=== PATIENT | male | born 1965 | race Two or more races ===

== ENCOUNTER 2019-05-01 21:45 | Inpatient (IN) | payer MEDICAID ==
--- NOTE | 2019-05-01 22:45 | ED Physician Chart ---
ED Chief Complaint/HPI - Patient Information Date Seen:: 05/01/19 Time Seen:: 22:10 Chief Complaint:: swollen feet History of Present Illness:: this is a chronically ill 53 yo male who is concerned about his swollen feet and legs with fever. he has a history of diabetes, heart disease, hypertension and obesity. he has had difficulty walking lately. Allergies:: Allergies Allergy/AdvReac Type Severity Reaction Status Date / Time No Known Allergies Allergy Verified 05/01/19 22:01 Vitals:: Vital Signs - 8 hr 05/01/19 22:00 Temp 99.8 F HR 116 RR 18 BP 139/88 O2 Sat % 97 Historian:: Patient, Medical Records Review:: Nurse's Note Reviewed, Old Chart Reviewed ED Review of Systems - Review of Systems General/Constitutional: Fever, Chills, No chills, Weight loss, No weight loss, No weakness, No diaphoresis, Edema, No loss of appetite Skin: Skin lesions (on both lower extremities there are scabs and scaring noted) , No rash, No bruising Head: No headache, No light-headedness Eyes: No loss of vision, No pain, No diplopia ENT: No earache, No nasal drainage, No sore throat, No tinnitus Neck: No neck pain, No swelling, No thyromegaly, No stiffness, No mass noted Cardio Vascular: No chest pain, No palpitations, No PND, No orthopnea, No edema Pulmonary: No SOB, No cough, No sputum, No wheezing GI: No nausea, No vomiting, No diarrhea, No pain, No melena, No hematochezia, No constipation, No hematemesis G/U: No dysuria, No frequency, No hematuria Musculoskeletal: No bone or joint pain, No back pain, No muscle pain, Other ( bilaterarl leg pain and swelling with redness.) Endocrine: No polyuria, No polydipsia Psychiatric: No prior psych history, No depression, No anxiety, No suicidal ideation Hematopoietic: No bruising, No lymphadenopathy Allergic/Immuno: No urticaria, No angioedema Neurological: No syncope, No focal symptoms, No weakness, No paresthesia, No headache, No seizure, No dizziness, No confusion, No vertigo ED Past Medical History - Past Medical History Obtainable: Yes Past Medical History: HTN, DM, CAD, CHF, Asthma/COPD, Dyslipidemia Family History: None Social History: Non Smoker, No Alcohol, No Drug Use, Surgical History: other (heart valve replacement, bilateral knee surgery.) Psychiatricy History: None Medication: Reviewed Family Medical History - Family Member Mother History Unknown: Yes Hx Family Diabetes: Yes ED Physical Exam - Physical Examination General/Constitutional: Awake, Well-developed, well-nourished, Alert, No distress, GCS 15, Non-toxic appearing, Ambulatory Other Gen/Cons comments:: obese Head: Atraumatic Eyes: Lids, conjuctiva normal, PERRL, EOMI Skin: Nl inspection, No rash, No skin lesions, No ecchymosis, Well hydrated, No lymphadenopathy ENMT: External ears, nose nl, Nasal exam nl, Lips, teeth, gums nl Neck: Nontender, Full ROM w/o pain, No JVD, No nuchal rigidity, No bruit, No mass, No stridor Respiratory: Nl effort/Exclusion, Clear to Auscultation, No Wheeze/Rhonchi/Rales Cardio Vascular: RRR (tachycardia), No murmur, gallop, rubs, NL S1 S2 GI: No tenderness/rebounding/guarding, No organomegaly, No hernia, Normal BS's, Nondistended, No mass/bruits, No McBurney tenderness : No CVA tenderness Extremities: No tenderness or effusion (there is biateral tenderness, sweling and redness to both lower extremities.), Full ROM, normal strength in all extremities, Normal digits & nails Neuro/Psych: Alert/oriented, DTR's symmetric, Normal sensory exam, Normal motor strength, Judgement/insight normal, Mood normal, Normal gait, No focal deficits Misc: Normal back, No paraspinal tenderness ED Labs/Radiology/EKG Results - Lab Results Results: Laboratory Results - last 24 hr 05/01/19 05/01/19 05/01/19 20:56 22:50 22:50 WBC 20.1 H* RBC 5.24 Hgb 16.6 Hct 48.1 MCV 91.7 MCH 31.7 H MCHC Differential 34.5 RDW 12.8 Plt Count 266 MPV 8.4 Add Manual Diff YES PT 10.8 INR 1.04 PTT (Actin FS) 25.1 L D-Dimer Sodium Potassium Chloride Carbon Dioxide Anion Gap BUN Creatinine Est GFR ( Amer) Est GFR (Non-Af Amer) BUN/Creatinine Ratio Glucose POC Glucose Whole Bld Lactic Acid Calcium Total Bilirubin AST ALT Alkaline Phosphatase Troponin I B-Natriuretic Peptide Total Protein Albumin Globulin Albumin/Globulin Ratio Triglycerides Cholesterol LDL Cholesterol Direct HDL Cholesterol Urine Source CLEAN C Urine Color YELLOW Urine Clarity CLEAR Urine pH 6.5 Ur Specific [place] 1.010 Urine Protein NEGATIVE Urine Glucose (UA) >=1000 H Urine Ketones NEGATIVE Urine Blood NEGATIVE Urine Nitrate NEGATIVE Urine Bilirubin NEGATIVE Urine Urobilinogen 1.0 Ur Leukocyte Esterase NEGATIVE Urine RBC NONE SEEN Urine WBC 0-2 Ur Epithelial Cells RARE Urine Bacteria OCCASIONAL 05/01/19 05/01/19 05/01/19 22:50 22:50 22:50 WBC RBC Hgb Hct MCV MCH MCHC Differential RDW Plt Count MPV Add Manual Diff PT INR PTT (Actin FS) D-Dimer Sodium 129 L Potassium 4.1 Chloride 92 L Carbon Dioxide 26.5 Anion Gap 14.6 BUN 8 Creatinine 0.8 Est GFR ( Amer) > 60.0 Est GFR (Non-Af Amer) > 60.0 BUN/Creatinine Ratio 10.0 Glucose 320 H POC Glucose Whole Bld Lactic Acid 1.76 Calcium 10.2 Total Bilirubin 0.6 AST 37 ALT 51 Alkaline Phosphatase 94 Troponin I 0.02 B-Natriuretic Peptide Total Protein 9.8 H Albumin 4.4 Globulin 5.4 Albumin/Globulin Ratio 0.8 L Triglycerides 97 Cholesterol 125 LDL Cholesterol Direct 69 L HDL Cholesterol 46 Urine Source Urine Color Urine Clarity Urine pH Ur Specific [place] Urine Protein Urine Glucose (UA) Urine Ketones Urine Blood Urine Nitrate Urine Bilirubin Urine Urobilinogen Ur Leukocyte Esterase Urine RBC Urine WBC Ur Epithelial Cells Urine Bacteria 05/01/19 05/01/19 05/01/19 22:50 22:50 23:04 WBC RBC Hgb Hct MCV MCH MCHC Differential RDW Plt Count MPV Add Manual Diff PT INR PTT (Actin FS) D-Dimer 781 H Sodium Potassium Chloride Carbon Dioxide Anion Gap BUN Creatinine Est GFR ( Amer) Est GFR (Non-Af Amer) BUN/Creatinine Ratio Glucose POC Glucose 262 H Whole Bld Lactic Acid Calcium Total Bilirubin AST ALT Alkaline Phosphatase Troponin I B-Natriuretic Peptide 100.0 Total Protein Albumin Globulin Albumin/Globulin Ratio Triglycerides Cholesterol LDL Cholesterol Direct HDL Cholesterol Urine Source Urine Color Urine Clarity Urine pH Ur Specific [place] Urine Protein Urine Glucose (UA) Urine Ketones Urine Blood Urine Nitrate Urine Bilirubin Urine Urobilinogen Ur Leukocyte Esterase Urine RBC Urine WBC Ur Epithelial Cells Urine Bacteria - Radiology Results Results: chest x-ray = nad - EKG Interpretations EKG Time:: 21:30 Rate & Rhythm: rate= 100, sinus [place]: right ED Assessment - Assessment General Assessment: cellulitis of both lower extremities diabetes mellitus uncontrolled electrolyte imbalance fever hypertension controlled. ED Septic Shock - . Is Septic Shock (SBP<90, OR Lactate>4 mmol\L) present?: No - <6hrs of presentation: Vital Signs: Vital Signs - 8 hr 05/01/19 22:00 Temp 99.8 F HR 116 RR 18 BP 139/88 O2 Sat % 97 ED Reassessment (Disposition) - Reassessment Reassessment Condition:: Improved - Diagnosis Diagnosis:: cellulitis of both lower extremities diabetes mellitus uncontrolled chronic congestive heart failure hypertension, controlled fever leukocyctosis. - Patient Disposition Discharge/Transfer:: Acute Care w/in this hosp Admitted to:: Telemetry Admitting Medical Physician:: Selvin Dubon Condition at Disposition:: Improved
[2019-05-01 23:07] LABS: HEMATOCRIT 48.1 % (41.0-60); HEMOGLOBIN 16.6 gm/dL (12-16); MEAN CELL VOLUME 91.7 fl (80-99); MEAN CORPUSCULAR HEMOGLOBIN 31.7 pg (26.0-30.0); MEAN CORPUSCULAR HGB CONC 34.5 pg (28.0-36.0); PLATELET COUNT 266 Th/cmm (150-400); RED BLOOD COUNT 5.24 Mil/cmm (4.30-5.70); RED CELL DISTRIBUTION WIDTH 12.8 % (11.5-20.0)
[2019-05-01 23:10] LABS: URINE SOURCE CLEAN C
[2019-05-01 23:13] LABS: WHITE BLOOD COUNT 20.1 Th/cmm (4.8-10.8)
[2019-05-01 23:15] LABS: URINE BILIRUBIN NEGATIVE (NEGATIVE); URINE BLOOD NEGATIVE (NEGATIVE); URINE GLUCOSE (UA) >=1000 mg/dL (NEGATIVE); URINE KETONE NEGATIVE (NEGATIVE); URINE LEUKOCYTE ESTERASE NEGATIVE (NEGATIVE); URINE MICROSCOPIC INDICATED? YES; URINE NITRATE NEGATIVE (NEGATIVE); URINE PH 6.5 (4.6 - 8.0); URINE PROTEIN NEGATIVE (NEGATIVE)
[2019-05-01 23:18] LABS: URINE CLARITY CLEAR (CLEAR); URINE COLOR YELLOW
[2019-05-01 23:19] LABS: URINE BACTERIA OCCASIONAL /hpf (NONE SEEN); URINE EPITHELIAL CELLS RARE /lpf (FEW); URINE RBC NONE SEEN /hpf (0-5); URINE WBC 0-2 /hpf (0-5)
[2019-05-01 23:26] LABS: ALB/GLOB RATIO 0.8 (1.0-1.8); ALBUMIN 4.4 gm/dL (4.2-5.5); ALKALINE PHOSPHATASE 94 U/L (34-104); ANION GAP 14.6 (7.0-16.0); BILIRUBIN,TOTAL 0.6 mg/dL (0.3-1.0); BUN - UREA NITROGEN 8 mg/dL (7-25); CALCIUM SERUM 10.2 mg/dL (8.6-10.3); CARBON DIOXIDE 26.5 mEq/L (21.0-31.0); CHLORIDE 92 mEq/L (98-107); CHOLESTEROL 125 mg/dL (<200); CREATININE - SERUM 0.8 mg/dL (0.7-1.3); GFR AFRICAN-AMERICAN > 60.0 ml/min (>90); GFR NON AFRICAN-AMERICAN > 60.0 ml/min; GLUCOSE 320 mg/dL (70-105); HDL -HIGH DENSITY LIPOPROTEIN 46 mg/dL (23-92); POTASSIUM SERUM 4.1 mEq/L (3.5-5.1); SGOT 37 U/L (13-39); SGPT/ALT 51 U/L (7-52); SODIUM SERUM 129 mEq/L (136-145); TOTAL PROTEIN,SERUM 9.8 gm/dL (6.0-8.3); TRIGLYCERIDES 97 mg/dL (<150)
[2019-05-01] MEDS ORDERED: INSULIN HUMAN REGULAR 100 UNITS/ML UNIT SUBQ ONE (23:33)
[2019-05-01 23:43] LABS: INR 1.04 (0.5-1.4)
[2019-05-02 04:28] LABS: BAND NEUTROPHILE 2 % (0-10); EOSINOPHIL 1 % (0-5); LYMPHOCYTE 14 % (20-50); MONOCYTE 3 % (2-10); NEUTROPHILS 80 % (40-80); PLATELET ESTIMATE ADEQUATE (NORMAL)
[2019-05-02] MEDS: Ampicillin Sodium/Sulbactam 3 GM in Sodium Chloride 0.9% 100 ML IV SCH ×3 (05:34→21:18)
[2019-05-02 07:53] LABS: MEAN CORPUSCULAR HEMOGLOBIN 31.3 pg (26.0-30.0); MEAN CORPUSCULAR HGB CONC 33.6 pg (28.0-36.0); PLATELET COUNT 257 Th/cmm (150-400); RED BLOOD COUNT 4.48 Mil/cmm (4.30-5.70); RED CELL DISTRIBUTION WIDTH 12.8 % (11.5-20.0)
[2019-05-02 07:58] LABS: HEMATOCRIT 41.7 % (41.0-60)
[2019-05-02] MEDS: Enoxaparin 40 mg/0.4 mL 0.4mL Syr SUBQ SCH (08:04)
[2019-05-02] MEDS: INSULIN LISPRO SLIDING SCALE 100 UNITS/ML UNIT SUBQ SCH ×4 (08:05→21:24)
[2019-05-02 08:16] LABS: ALB/GLOB RATIO 0.8 (1.0-1.8); ALBUMIN 3.2 gm/dL (4.2-5.5); ALKALINE PHOSPHATASE 65 U/L (34-104); BILIRUBIN,TOTAL 0.5 mg/dL (0.3-1.0); BUN - UREA NITROGEN 7 mg/dL (7-25); CALCIUM SERUM 9.2 mg/dL (8.6-10.3); CARBON DIOXIDE 28.1 mEq/L (21.0-31.0); CHLORIDE 99 mEq/L (98-107); CREATININE - SERUM 0.8 mg/dL (0.7-1.3); GFR AFRICAN-AMERICAN > 60.0 ml/min (>90); GFR NON AFRICAN-AMERICAN > 60.0 ml/min; GLUCOSE 229 mg/dL (70-105); POTASSIUM SERUM 4.1 mEq/L (3.5-5.1); SGOT 23 U/L (13-39); SGPT/ALT 33 U/L (7-52); SODIUM SERUM 134 mEq/L (136-145); TOTAL PROTEIN,SERUM 7.3 gm/dL (6.0-8.3)
[2019-05-02 08:18] LABS: BAND NEUTROPHILE 0 % (0-10); BASOPHIL 0 % (0-3); EOSINOPHIL 2 % (0-5); LYMPHOCYTE 20 % (20-50); MONOCYTE 6 % (2-10); NEUTROPHILS 72 % (40-80)
--- NOTE | 2019-05-02 09:04 | Diagnostic Imaging Report ---
CHEST X-RAY: AP view INDICATION: Congestion COMPARISON: None FINDINGS: There is evidence of prior median sternotomy. There is accentuation of the interstitial lung markings. There is no focal consolidation or pleural effusions The heart is normal in size. The osseous structures demonstrate no acute abnormalities. IMPRESSION: Accentuation of the interstitial lung markings. A marginal degree of congestion cannot be excluded. Please correlate clinically. No focal consolidation Evidence of prior median sternotomy.
--- NOTE | 2019-05-02 09:04 | Diagnostic Imaging Report ---
Bilateral lower extremity DVT study HISTORY: Lower extremity swelling COMPARISON: None Technique: Longitudinal and transverse sonographic images of the bilateral lower extremity veins were obtained with doppler analysis. FINDINGS: There is normal compressibility, augmentation and phasicity of the bilateral common femoral, superficial femoral, popliteal, and posterior tibial veins. No thrombus is visualized. IMPRESSION: No evidence of thrombus within the bilateral lower extremity veins.
[2019-05-02 15:07] LABS: AMPHETAMINE URINE POSITIVE (NEGATIVE); BARBITURATES URINE NEGATIVE (NEGATIVE); BENZODIAZEPINES QUAL URINE NEGATIVE (NEGATIVE); CANNABINOID THC NEGATIVE (NEGATIVE); COCAINE METABOLITE QUAL URINE NEGATIVE (NEGATIVE); METHADONE URINE NEGATIVE (NEGATIVE); METHAMPHETAMINES QUAL URINE NEGATIVE (NEGATIVE); OPIATES (MORPHINE) QUAL. URINE NEGATIVE (NEGATIVE); PHENCYCLIDINE (PCP) URINE NEGATIVE (NEGATIVE); TRICYCLICS (TCA) QUAL. URINE NEGATIVE (NEGATIVE)
--- NOTE | 2019-05-02 22:02 | History & Physical ---
ADMIT DATE: 05/02/2019 CHIEF COMPLAINT: Cellulitis of lower extremities. HISTORY OF PRESENT ILLNESS: The patient is a 53-year-old male with long history of insulin-dependent diabetes mellitus and hypertension, presented to the Emergency Room complaining of redness and tenderness of lower extremities. Initial workup is significant for cellulitis of lower extremity. The patient admitted to the medical floor, started on antibiotic, CCHO diet. The patient denies any fever, no chills, nausea, vomiting. PAST MEDICAL HISTORY: Significant for insulin dependent diabetes mellitus, hypertension, aortic valve disease. PAST SURGICAL HISTORY: Significant for aortic valve replacement. ALLERGIES: None. MEDICATIONS: Follow admission reconciliation. SOCIAL HISTORY: No smoking, no alcohol, no drugs. FAMILY HISTORY: Noncontributory. REVIEW OF SYSTEMS: RENAL SYSTEM: No history of chronic renal disorder. CARDIOVASCULAR SYSTEM: No coronary artery disease. He has history of aortic valve replacement. ENDOCRINE SYSTEM: He has history of diabetes mellitus. GASTROINTESTINAL SYSTEM: No upper or lower gastrointestinal bleed. NEUROLOGICAL SYSTEM: No seizure disorder. MUSCULOSKELETAL SYSTEM: No muscular dystrophy. HEMATOLOGIC SYSTEM: No bleeding tendencies. RESPIRATORY SYSTEM: Has history of asthma. GENITOURINARY: No dysuria or hematuria. PHYSICAL EXAMINATION: GENERAL: He is awake, alert, oriented, not in distress. VITAL SIGNS: Temperature 98, heart rate 92, blood pressure 148/85. HEENT: Normocephalic. Pupils are reactive to light and accommodation. Sclerae are clear. NECK: Supple. Negative for lymphadenopathy, JVD or bruit. CHEST: Air bilaterally normal. No rhonchi or wheezing. HEART: S1, S2 normal. No murmur or gallop rhythm. ABDOMEN: Soft, bowel sounds positive. EXTREMITIES: No edema. NEUROLOGICAL: He is awake, alert, oriented. No focal motor or sensory deficit. Cranial nerves 2 through 12 are intact. SKIN: Significant for redness of the skin of both lower extremities. LABORATORY DATA: White blood cell is 20.1, hemoglobin 16.6, hematocrit 48.1 and platelet 266. Sodium 129, potassium 4.1, BUN is 8, creatinine 0.8, glucose 320. ASSESSMENT: 1. Cellulitis of lower extremities. 2. Insulin-dependent diabetes mellitus. 3. Hypertension. 4. Obesity. PLAN: The patient admitted to the hospital under Dr. Dubon's service, started on IV antibiotic, CCHO diet, sliding scale with regular insulin coverage. The patient is a full code. Dietary consultation obtained. JOB# [id number]
[2019-05-03] MEDS: Insulin Glargine 100 units/ml 10ml Vial SUBQ SCH ×2 (00:01→20:25)
[2019-05-03] MEDS: Ampicillin Sodium/Sulbactam 3 GM in Sodium Chloride 0.9% 100 ML IV SCH ×3 (05:43→16:56)
[2019-05-03 07:04] LABS: HEMATOCRIT 41.3 % (41.0-60); HEMOGLOBIN 14.4 gm/dL (12-16); MEAN CELL VOLUME 91.6 fl (80-99); MEAN CORPUSCULAR HEMOGLOBIN 31.9 pg (26.0-30.0); MEAN CORPUSCULAR HGB CONC 34.8 pg (28.0-36.0); PLATELET COUNT 274 Th/cmm (150-400); RED BLOOD COUNT 4.51 Mil/cmm (4.30-5.70); RED CELL DISTRIBUTION WIDTH 12.6 % (11.5-20.0)
[2019-05-03 07:12] LABS: WHITE BLOOD COUNT 18.3 Th/cmm (4.8-10.8)
[2019-05-03 07:18] LABS: ALB/GLOB RATIO 0.8 (1.0-1.8); ALBUMIN 3.3 gm/dL (4.2-5.5); ALKALINE PHOSPHATASE 63 U/L (34-104); ANION GAP 13.7 (7.0-16.0); BILIRUBIN,TOTAL 0.5 mg/dL (0.3-1.0); BUN - UREA NITROGEN 8 mg/dL (7-25); CALCIUM SERUM 9.2 mg/dL (8.6-10.3); CARBON DIOXIDE 24.3 mEq/L (21.0-31.0); CHLORIDE 98 mEq/L (98-107); CREATININE - SERUM 0.7 mg/dL (0.7-1.3); GFR AFRICAN-AMERICAN > 60.0 ml/min (>90); GFR NON AFRICAN-AMERICAN > 60.0 ml/min; GLUCOSE 231 mg/dL (70-105); SGOT 20 U/L (13-39); SGPT/ALT 27 U/L (7-52); SODIUM SERUM 132 mEq/L (136-145); TOTAL PROTEIN,SERUM 7.4 gm/dL (6.0-8.3)
[2019-05-03 07:51] LABS: BAND NEUTROPHILE 1 % (0-10); BASOPHIL 0 % (0-3); EOSINOPHIL 2 % (0-5); LYMPHOCYTE 16 % (20-50); MONOCYTE 6 % (2-10); NEUTROPHILS 75 % (40-80)
[2019-05-03] MEDS: Enoxaparin 40 mg/0.4 mL 0.4mL Syr SUBQ SCH (08:13)
[2019-05-03] MEDS: INSULIN LISPRO SLIDING SCALE 100 UNITS/ML UNIT SUBQ SCH ×4 (08:13→20:25)
[2019-05-03] MEDS: Vitamin D3 2,000 IU SGL PO SCH (08:14)
[2019-05-03] MEDS: Pantoprazole 40 mg EC Tab PO SCH (08:14)
--- NOTE | 2019-05-03 23:06 | Internal Medicine Prog Note ---
Internal Medicine Subjective - Subjective Service Date: 05/03/19 Patient seen and examined:: with staff (HE STILL HAS PAIN AT LOWER EXTREM) Patient is:: awake, verbal, in bed, talking Per staff patient has:: no adverse event Internal Medicine Objective - Results Result Diagrams: 05/03/19 06:35 05/03/19 06:35 Recent Labs: Laboratory Last Values WBC 18.3 Th/cmm (4.8-10.8) H 05/03/19 06:35 RBC 4.51 Mil/cmm (4.30-5.70) 05/03/19 06:35 Hgb 14.4 gm/dL (12-16) 05/03/19 06:35 Hct 41.3 % (41.0-60) 05/03/19 06:35 MCV 91.6 fl (80-99) 05/03/19 06:35 MCH 31.9 pg (26.0-30.0) H 05/03/19 06:35 MCHC Differential 34.8 pg (28.0-36.0) 05/03/19 06:35 RDW 12.6 % (11.5-20.0) 05/03/19 06:35 Plt Count 274 Th/cmm (150-400) 05/03/19 06:35 MPV 7.9 fl 05/03/19 06:35 Add Manual Diff YES 05/03/19 06:35 Band Neutrophils % 1 % (0-10) 05/03/19 06:35 Neutrophils (Manual) 75 % (40-80) 05/03/19 06:35 Lymphocytes 16 % (20-50) L 05/03/19 06:35 Monocytes 6 % (2-10) 05/03/19 06:35 Eosinophils 2 % (0-5) 05/03/19 06:35 Basophils 0 % (0-3) 05/03/19 06:35 Platelet Estimate ADEQUATE (NORMAL) 05/01/19 22:50 PT 10.8 SECONDS (9.5-11.5) 05/01/19 22:50 INR 1.04 (0.5-1.4) 05/01/19 22:50 PTT (Actin FS) 25.1 SECONDS (26.0-38.0) L 05/01/19 22:50 D-Dimer 781 ng/mL (100-400) H 05/01/19 22:50 Sodium 132 mEq/L (136-145) L 05/03/19 06:35 Potassium 4.0 mEq/L (3.5-5.1) 05/03/19 06:35 Chloride 98 mEq/L (98-107) 05/03/19 06:35 Carbon Dioxide 24.3 mEq/L (21.0-31.0) 05/03/19 06:35 Anion Gap 13.7 (7.0-16.0) 05/03/19 06:35 BUN 8 mg/dL (7-25) 05/03/19 06:35 Creatinine 0.7 mg/dL (0.7-1.3) 05/03/19 06:35 Est GFR ( Amer) > 60.0 ml/min (>90) 05/03/19 06:35 Est GFR (Non-Af Amer) > 60.0 ml/min 05/03/19 06:35 BUN/Creatinine Ratio 11.4 05/03/19 06:35 Glucose 231 mg/dL (70-105) H 05/03/19 06:35 POC Glucose 238 MG/DL (70 - 105) H 05/03/19 20:21 Whole Bld Lactic Acid 1.76 mmol/L (0.60-1.99) 05/01/19 22:50 Calcium 9.2 mg/dL (8.6-10.3) 05/03/19 06:35 Total Bilirubin 0.5 mg/dL (0.3-1.0) 05/03/19 06:35 AST 20 U/L (13-39) 05/03/19 06:35 ALT 27 U/L (7-52) 05/03/19 06:35 Alkaline Phosphatase 63 U/L (34-104) 05/03/19 06:35 Troponin I 0.02 ng/mL (0.01-0.05) 05/01/19 22:50 B-Natriuretic Peptide 100.0 pg/mL (5.0-100.0) 05/01/19 22:50 Total Protein 7.4 gm/dL (6.0-8.3) 05/03/19 06:35 Albumin 3.3 gm/dL (4.2-5.5) L 05/03/19 06:35 Globulin 4.1 gm/dL 05/03/19 06:35 Albumin/Globulin Ratio 0.8 (1.0-1.8) L 05/03/19 06:35 Triglycerides 97 mg/dL (<150) 05/01/19 22:50 Cholesterol 125 mg/dL (<200) 05/01/19 22:50 LDL Cholesterol Direct 69 mg/dL (75-193) L 05/01/19 22:50 HDL Cholesterol 46 mg/dL (23-92) 05/01/19 22:50 TSH 0.76 uIU/ml (0.34-5.60) 05/01/19 22:50 Urine Source CLEAN C 05/01/19 20:56 Urine Color YELLOW 05/01/19 20:56 Urine Clarity CLEAR (CLEAR) 05/01/19 20:56 Urine pH 6.5 (4.6 - 8.0) 05/01/19 20:56 Ur Specific [place] 1.010 (1.005-1.030) 05/01/19 20:56 Urine Protein NEGATIVE mg/dL (NEGATIVE) 05/01/19 20:56 Urine Glucose (UA) >=1000 mg/dL (NEGATIVE) H 05/01/19 20:56 Urine Ketones NEGATIVE mg/dL (NEGATIVE) 05/01/19 20:56 Urine Blood NEGATIVE (NEGATIVE) 05/01/19 20:56 Urine Nitrate NEGATIVE (NEGATIVE) 05/01/19 20:56 Urine Bilirubin NEGATIVE (NEGATIVE) 05/01/19 20:56 Urine Urobilinogen 1.0 E.U./dL (0.2 - 1.0) 05/01/19 20:56 Ur Leukocyte Esterase NEGATIVE (NEGATIVE) 05/01/19 20:56 Urine RBC NONE SEEN /hpf (0-5) 05/01/19 20:56 Urine WBC 0-2 /hpf (0-5) 05/01/19 20:56 Ur Epithelial Cells RARE /lpf (FEW) 05/01/19 20:56 Urine Bacteria OCCASIONAL /hpf (NONE SEEN) 05/01/19 20:56 Urine Opiates Screen NEGATIVE (NEGATIVE) 05/02/19 14:00 Urine Methadone Screen NEGATIVE (NEGATIVE) 05/02/19 14:00 Ur Barbiturates Screen NEGATIVE (NEGATIVE) 05/02/19 14:00 Ur Tricyclics Screen NEGATIVE (NEGATIVE) 05/02/19 14:00 Ur Phencyclidine Scrn NEGATIVE (NEGATIVE) 05/02/19 14:00 Amphetamines Screen POSITIVE (NEGATIVE) H 05/02/19 14:00 U Methamphetamines Scrn NEGATIVE (NEGATIVE) 05/02/19 14:00 U Benzodiazepines Scrn NEGATIVE (NEGATIVE) 05/02/19 14:00 U Cocaine Metab Screen NEGATIVE (NEGATIVE) 05/02/19 14:00 U Cannabinoids Screen NEGATIVE (NEGATIVE) 05/02/19 14:00 RPR NONREACTIVE (NONREACTIVE) 05/01/19 22:50 - Physical Exam Vitals and I&O: Vital Signs Temp 96.3 F 05/03/19 15:58 Pulse 93 05/03/19 15:58 Resp 18 05/03/19 20:00 BP 120/69 05/03/19 15:58 Pulse Ox 95 05/03/19 15:58 Intake & Output 05/03/19 05/03/19 05/04/19 06:59 18:59 06:59 Intake Total 340 1300 Output Total 500 Balance -160 1300 Weight (lbs) 129.274 kg 129.274 kg Intake: Intake, IV Amount 100 100 Ampicillin Sodium/ 100 Sulbactam 3 gm In Sodium Chloride 0.9% 100 ml @ 100 mls/hr IV Q8HR [facility] Rx #:[id number] Ampicillin Sodium/ 100 Sulbactam 3 gm In Sodium Chloride 0.9% 100 ml @ 100 mls/hr IV Q8HR@0100, 0900,1700 [facility] Rx#: [id number] Oral 240 1200 Output: Urine 500 Other: # Voids 3 # Bowel Movements 0 1 Weight Source Patient stated Bedscale Active Medications: Current Medications Acetaminophen (Tylenol) 650 mg PO Q4HR PRN PRN Reason: Pain or Fever >101 Stop: 07/01/19 01:28 Last Admin: 05/03/19 20:27 Dose: 650 mg Amlodipine Besylate (Norvasc) 10 mg PO DAILY [facility] Stop: 07/02/19 08:59 Last Admin: 05/03/19 08:14 Dose: 10 mg Enoxaparin Sodium (Lovenox) 40 mg SUBQ DAILY [facility] Stop: 07/01/19 08:59 Last Admin: 05/03/19 08:13 Dose: 40 mg Ampicillin Sodium/Sulbactam (Sodium 3 gm/ Sodium Chloride) 100 mls @ 100 mls/ hr IV Q8HR@0100,0900,1700 [facility] Stop: 07/02/19 11:59 Last Admin: 05/03/19 16:56 Dose: 100 mls/hr Insulin Glargine (Lantus Insulin) 30 units SUBQ HS [facility] Stop: 07/01/19 21:59 Last Admin: 05/03/19 20:25 Dose: 30 units Insulin Human Lispro (Humalog Insulin Sliding Scale) 0 units SUBQ [facility]; Protocol Stop: 07/01/19 07:29 Last Admin: 05/03/19 20:25 Dose: 5 units Lisinopril (Zestril) 5 mg PO DAILY [facility] Stop: 07/02/19 08:59 Last Admin: 05/03/19 08:14 Dose: 5 mg Loratadine (Claritin) 10 mg PO DAILY [facility] Stop: 07/02/19 08:59 Last Admin: 05/03/19 08:15 Dose: 10 mg Metformin HCl (Glucophage) 1,000 mg PO BIDWM [facility] Stop: 07/01/19 07:59 Last Admin: 05/03/19 17:00 Dose: 1,000 mg Metoprolol Tartrate (Lopressor) 100 mg PO DAILY [facility] Stop: 07/02/19 08:59 Last Admin: 05/03/19 08:15 Dose: 100 mg Montelukast Sodium (Singulair) 10 mg PO [facility] Stop: 07/02/19 20:59 Last Admin: 05/03/19 20:27 Dose: 10 mg Mupirocin (Bactroban Oint) 1 appl TP BID [facility] Stop: 07/02/19 08:59 Last Admin: 05/03/19 16:56 Dose: 1 appl Pantoprazole Sodium (Protonix) 40 mg PO QDAC [facility] Stop: 07/02/19 07:29 Last Admin: 05/03/19 08:14 Dose: 40 mg Simvastatin (Zocor) 20 mg PO [facility]; Protocol Stop: 07/02/19 20:59 Last Admin: 05/03/19 20:27 Dose: 20 mg Tramadol HCl (Ultram) 50 mg PO Q6HR PRN PRN Reason: Pain (Moderate) Stop: 07/01/19 21:28 Last Admin: 05/03/19 17:01 Dose: 50 mg Vitamin D (Vitamin D3) 2,000 iu PO DAILY [facility] Stop: 07/02/19 08:59 Last Admin: 05/03/19 08:14 Dose: 2,000 iu General: alert HEENT: NC/AT, PERRLA, EOMI, anicteric sclerae, throat clear Neck: Supple, No JVD, No thyromegaly, +2 carotid pulse wo bruit, No LAD Lungs: CTAB Cardiovascular: RRR, Normal S1, Normal S2, without murmur Abdomen: soft, non-tender, non-distended Extremities: clear, rash, other (THERE IS A LUMP ON BACK OF HIS LEFT CULF AREA) Neurological: no change Internal Medicine Assmt/Plan - Assessment Assessment: 1.CELLULITIS OF LOWER EXTREM. 2.IDDM 3.FOOT PRESSURE ULCERS - Plan Plan: 1.VENOUSE DOPLE OF LEFT LOWER EXTR. 2.WOUND CARE. 3.ID CONSULTATION, 4.CBC IN AM Nutritional Asmnt/Malnutr-PDOC - Dietary Evaluation Malnutrition Findings (Please click <Entered> for more info): Nutritional Asmnt/Malnutrition Start: 05/02/19 14: 21 Text: Status: Complete Freq: Protocol: Document 05/02/19 14:21 ROSIE (Rec: 05/02/19 14:28 ROSIE [id number]) Nutritional Asmnt/Malnutrition Patient General Information Nutritional Screening High Risk Diagnosis CELLULITIS LOWER EXTREMITIES, DIABETES Pertinent Medical Hx/Surgical Hx DM, HEART DISEASE, HTN, OBESITY Subjective Information IA, HIGH RISK, CONSULT: DIABETIC, UNCONTROLLED PT DOWNGRADED TO MODERATE RISK PT IS A 53 YEAR OLD MALE ADMITTED ON 05/02 C/O SWOLEN FEET AND LEGS WITH FEVER. PT HAS HAD DIFFICULTY WALKING LATELY. SPOKE WITH MI AT BEDSIDE AFTER LUNCH. PT WAS PLEASANT AND STATED HE ENJOYED BREAKFAST AND LUNCH, EATING 100%. DISCUSSED PT ROUTINE AT HOME CONCERNING DM CARE AND MANAGEMENT. PT STATED HE EATS OUT, DOES NOT COOK. PROVIDED PT WITH EDUCATION MATERIALS AND DISCUSSED HEALTHIER CHOICES WHEN EATING OUT TO MANAGE HID DM. PT WAS ACCEPTING OF THE INFORMATION AND VERBALIZED UNDERSTANDING. PT WAS NOT INTERESTED IN ANY OUTPATIENT DM EDUCATION/ COUNSELING. HT: 61 WT: 280 LB (127.27 KG) ABW: 218 LB (99.10) BMI: 36.94 (OBESE, CLASS II) GI: WNL, SOFT, LARGE, NON- TENDER BM: NOT NOTED I/O: 100/NOT NOTED SKIN: WARM, DRY, ELASTIC, FAIZAN LOWER EXTREMITIES REDENNED WITH PAIN AND SWELLING WOUND: ABD OPEN SCAB, RT FOOT 5TH TOE WOUND ANDREA: 22 DIET ORDER: [facility] 45 ESTIMATED ENERGY NEEDS: (OBESE II, ABW) [id number] KCALS (20-25 KCALS/ KG) 79-89G PRO (0.8-0.9 G/KG) 3400-4000ML (35-40 ML/KG) Current Diet Order/ Nutrition Support [facility] 45 Pertinent Medications INS-SS, GLUCOPHAGE Pertinent Labs 05/02: NA 134, GLUCOSE 229, ALB 3.2 POC GLUCOSE (LAST 24 HOURS): 262,296,236 Nutritional Hx/Data Height 1.85 m Height (Calculated Centimeters) 185.4 Current Weight (lbs) 127.006 kg Weight (Calculated Kilograms) 127.0 Weight (Calculated Grams) 974685.9 [place] Body Weight 184 LB % [place] Body Weight 152 Body Mass Index (BMI) 36.9 Weight Status Obese GI Symptoms GI Symptoms None Last BM NOT NOTED Usual diet at home REGULAR Skin Integrity/Comment: SKIN: WARM, DRY, ELASTIC, FAIZAN LOWER EXTREMITIES REDENNED WITH PAIN AND SWELLING WOUND: ABD OPEN SCAB, RT FOOT 5TH TOE WOUND ANDREA: 22 Current %PO Good (75-100%) Estimated Nutritional Goals BEE in Kcals: Adj wt of IBW Calories/Kcals/Kg 20-25 Kcals Calculated 3953-4602 Protein: Adj wt of IBW Protein g/k.8-0.9 Protein Calculated 79-89 GM Fluid: ml 3400-4000ML (35-40 ML/KG) Nutritional Problem 3. Problem Problem LIMITED ADHERENCE TO NUTRITION -RELATED RECOMMENDATIONS Etiology R/T DM Signs/Symptoms: AEB PT SELF REPORT OF NOT FOLLOWING ANY DIET EVEN THOUGH HE HAS HAD DM EEUCATION PREVIOUSLY 2. Problem Problem OBESITY Etiology R/T EXCESSIVE ENERGY INTAKE Signs/Symptoms: AEB BMI 36.94 AND PT SELF REPORT OF EATING A LOT OF FAST FOOD 1. Problem Problem ALTERED NUTRITION RELATED LAB Etiology R/T ENDOCRINE DYSFUNCTION Signs/Symptoms: AEB HX DM AND GLUCOSE 229-296 Malnutrition Related to Morbid Obesity Malnutrition related to morbid obesity No Intervention/Recommendation Comments 1. CONTINUE WITH [address] DIET ORDERED. 2. CONTINUE ANTIHYPERGLYCEMIC MEDICATIONS PER MD ORDER. 3. PROVIDE PT WITH DM EDUCATION AND EDUCATION MATERIALS TO TAKE HOME ( COMPLETED). Expected Outcomes/Goals Expected Outcomes/Goals 1. PO INTAKE TO MEET > 75% OF NUTRITIONAL NEEDS. 2. MONITOR PO INTAKE, WT, NUTRITION RELATED LABS AND SKIN INTEGRITY. 3. NUTRITION RELATED LABS TO TREND WNL IN 3-5 DAYS. 4. F/U MODERATE RISK IN 3-5 DAYS 05/05-05/07
[2019-05-04] MEDS: Ampicillin Sodium/Sulbactam 3 GM in Sodium Chloride 0.9% 100 ML IV SCH ×2 (00:21→10:20)
[2019-05-04 06:05] LABS: HEMATOCRIT 42.1 % (41.0-60); HEMOGLOBIN 14.2 gm/dL (12-16); MEAN CELL VOLUME 92.9 fl (80-99); MEAN CORPUSCULAR HEMOGLOBIN 31.3 pg (26.0-30.0); MEAN CORPUSCULAR HGB CONC 33.7 pg (28.0-36.0); PLATELET COUNT 270 Th/cmm (150-400); RED BLOOD COUNT 4.53 Mil/cmm (4.30-5.70); RED CELL DISTRIBUTION WIDTH 12.6 % (11.5-20.0)
[2019-05-04 06:10] LABS: WHITE BLOOD COUNT 18.8 Th/cmm (4.8-10.8)
[2019-05-04] MEDS: Pantoprazole 40 mg EC Tab PO SCH (06:48)
[2019-05-04] MEDS: INSULIN LISPRO SLIDING SCALE 100 UNITS/ML UNIT SUBQ SCH ×4 (06:48→21:12)
[2019-05-04 06:49] LABS: NEUTROPHILS 61 % (40-80)
[2019-05-04 06:50] LABS: BAND NEUTROPHILE 2 % (0-10); EOSINOPHIL 2 % (0-5); LYMPHOCYTE 26 % (20-50); MONOCYTE 9 % (2-10); PLATELET ESTIMATE ADEQUATE (NORMAL)
[2019-05-04] MEDS: Vitamin D3 2,000 IU SGL PO SCH (08:42)
[2019-05-04] MEDS: Enoxaparin 40 mg/0.4 mL 0.4mL Syr SUBQ SCH (08:44)
--- NOTE | 2019-05-04 11:16 | Diagnostic Imaging Report ---
Left lower extremity DVT study HISTORY: Pain and swelling COMPARISON: None Technique: Longitudinal and transverse sonographic images of the left lower extremity veins were obtained with doppler analysis. FINDINGS: There is normal compressibility, augmentation and phasicity of the left common femoral, superficial femoral, popliteal, and posterior tibial veins. No thrombus is visualized. IMPRESSION: No evidence of thrombus within the left lower extremity veins.
[2019-05-04] MEDS: Hydrocodone/APAP 5mg/325mg Tab PO PRN ×2 (12:24→17:46)
--- NOTE | 2019-05-04 19:36 | Internal Medicine Prog Note ---
Internal Medicine Subjective - Subjective Service Date: 05/04/19 Patient seen and examined:: without staff (HE FEELS BETTER) Patient is:: awake, verbal, in bed, talking Per staff patient has:: no adverse event Internal Medicine Objective - Results Result Diagrams: 05/04/19 04:50 05/03/19 06:35 Recent Labs: Laboratory Last Values WBC 18.8 Th/cmm (4.8-10.8) H 05/04/19 04:50 RBC 4.53 Mil/cmm (4.30-5.70) 05/04/19 04:50 Hgb 14.2 gm/dL (12-16) 05/04/19 04:50 Hct 42.1 % (41.0-60) 05/04/19 04:50 MCV 92.9 fl (80-99) 05/04/19 04:50 MCH 31.3 pg (26.0-30.0) H 05/04/19 04:50 MCHC Differential 33.7 pg (28.0-36.0) 05/04/19 04:50 RDW 12.6 % (11.5-20.0) 05/04/19 04:50 Plt Count 270 Th/cmm (150-400) 05/04/19 04:50 MPV 8.1 fl 05/04/19 04:50 Add Manual Diff YES 05/04/19 04:50 Band Neutrophils % 2 % (0-10) 05/04/19 04:50 Neutrophils (Manual) 61 % (40-80) 05/04/19 04:50 Lymphocytes 26 % (20-50) 05/04/19 04:50 Monocytes 9 % (2-10) 05/04/19 04:50 Eosinophils 2 % (0-5) 05/04/19 04:50 Basophils 0 % (0-3) 05/03/19 06:35 Platelet Estimate ADEQUATE (NORMAL) 05/04/19 04:50 PT 10.8 SECONDS (9.5-11.5) 05/01/19 22:50 INR 1.04 (0.5-1.4) 05/01/19 22:50 PTT (Actin FS) 25.1 SECONDS (26.0-38.0) L 05/01/19 22:50 D-Dimer 781 ng/mL (100-400) H 05/01/19 22:50 Sodium 132 mEq/L (136-145) L 05/03/19 06:35 Potassium 4.0 mEq/L (3.5-5.1) 05/03/19 06:35 Chloride 98 mEq/L (98-107) 05/03/19 06:35 Carbon Dioxide 24.3 mEq/L (21.0-31.0) 05/03/19 06:35 Anion Gap 13.7 (7.0-16.0) 05/03/19 06:35 BUN 8 mg/dL (7-25) 05/03/19 06:35 Creatinine 0.7 mg/dL (0.7-1.3) 05/03/19 06:35 Est GFR ( Amer) > 60.0 ml/min (>90) 05/03/19 06:35 Est GFR (Non-Af Amer) > 60.0 ml/min 05/03/19 06:35 BUN/Creatinine Ratio 11.4 05/03/19 06:35 Glucose 231 mg/dL (70-105) H 05/03/19 06:35 POC Glucose 179 MG/DL (70 - 105) H 05/04/19 06:44 Whole Bld Lactic Acid 1.76 mmol/L (0.60-1.99) 05/01/19 22:50 Calcium 9.2 mg/dL (8.6-10.3) 05/03/19 06:35 Total Bilirubin 0.5 mg/dL (0.3-1.0) 05/03/19 06:35 AST 20 U/L (13-39) 05/03/19 06:35 ALT 27 U/L (7-52) 05/03/19 06:35 Alkaline Phosphatase 63 U/L (34-104) 05/03/19 06:35 Troponin I 0.02 ng/mL (0.01-0.05) 05/01/19 22:50 B-Natriuretic Peptide 100.0 pg/mL (5.0-100.0) 05/01/19 22:50 Total Protein 7.4 gm/dL (6.0-8.3) 05/03/19 06:35 Albumin 3.3 gm/dL (4.2-5.5) L 05/03/19 06:35 Globulin 4.1 gm/dL 05/03/19 06:35 Albumin/Globulin Ratio 0.8 (1.0-1.8) L 05/03/19 06:35 Triglycerides 97 mg/dL (<150) 05/01/19 22:50 Cholesterol 125 mg/dL (<200) 05/01/19 22:50 LDL Cholesterol Direct 69 mg/dL (75-193) L 05/01/19 22:50 HDL Cholesterol 46 mg/dL (23-92) 05/01/19 22:50 TSH 0.76 uIU/ml (0.34-5.60) 05/01/19 22:50 Urine Source CLEAN C 05/01/19 20:56 Urine Color YELLOW 05/01/19 20:56 Urine Clarity CLEAR (CLEAR) 05/01/19 20:56 Urine pH 6.5 (4.6 - 8.0) 05/01/19 20:56 Ur Specific [place] 1.010 (1.005-1.030) 05/01/19 20:56 Urine Protein NEGATIVE mg/dL (NEGATIVE) 05/01/19 20:56 Urine Glucose (UA) >=1000 mg/dL (NEGATIVE) H 05/01/19 20:56 Urine Ketones NEGATIVE mg/dL (NEGATIVE) 05/01/19 20:56 Urine Blood NEGATIVE (NEGATIVE) 05/01/19 20:56 Urine Nitrate NEGATIVE (NEGATIVE) 05/01/19 20:56 Urine Bilirubin NEGATIVE (NEGATIVE) 05/01/19 20:56 Urine Urobilinogen 1.0 E.U./dL (0.2 - 1.0) 05/01/19 20:56 Ur Leukocyte Esterase NEGATIVE (NEGATIVE) 05/01/19 20:56 Urine RBC NONE SEEN /hpf (0-5) 05/01/19 20:56 Urine WBC 0-2 /hpf (0-5) 05/01/19 20:56 Ur Epithelial Cells RARE /lpf (FEW) 05/01/19 20:56 Urine Bacteria OCCASIONAL /hpf (NONE SEEN) 05/01/19 20:56 Urine Opiates Screen NEGATIVE (NEGATIVE) 05/02/19 14:00 Urine Methadone Screen NEGATIVE (NEGATIVE) 05/02/19 14:00 Ur Barbiturates Screen NEGATIVE (NEGATIVE) 05/02/19 14:00 Ur Tricyclics Screen NEGATIVE (NEGATIVE) 05/02/19 14:00 Ur Phencyclidine Scrn NEGATIVE (NEGATIVE) 05/02/19 14:00 Amphetamines Screen POSITIVE (NEGATIVE) H 05/02/19 14:00 U Methamphetamines Scrn NEGATIVE (NEGATIVE) 05/02/19 14:00 U Benzodiazepines Scrn NEGATIVE (NEGATIVE) 05/02/19 14:00 U Cocaine Metab Screen NEGATIVE (NEGATIVE) 05/02/19 14:00 U Cannabinoids Screen NEGATIVE (NEGATIVE) 05/02/19 14:00 RPR NONREACTIVE (NONREACTIVE) 05/01/19 22:50 - Physical Exam Vitals and I&O: Vital Signs Temp 97.2 F 05/04/19 15:38 Pulse 79 05/04/19 15:38 Resp 18 05/04/19 16:00 BP 129/69 05/04/19 15:38 Pulse Ox 94 05/04/19 15:38 Intake & Output 05/04/19 05/04/19 05/05/19 06:59 18:59 06:59 Intake Total 800 1200 Output Total 600 Balance 800 600 Weight (lbs) 129.274 kg 129.274 kg Intake: Intake, IV Amount 100 600 Ampicillin Sodium/ 100 100 Sulbactam 3 gm In Sodium Chloride 0.9% 100 ml @ 100 mls/hr IV Q8HR@0100, 0900,1700 [facility] Rx#: [id number] Vancomycin HCl 2 gm In 500 Sodium Chloride 0.9% 500 ml @ 250 mls/hr IV Q8H [facility] Rx#:[id number] Oral 700 600 Output: Urine 600 Other: # Voids 4 Weight Source Bedscale Bedscale Active Medications: Current Medications Acetaminophen (Tylenol) 650 mg PO Q4HR PRN PRN Reason: Pain or Fever >101 Stop: 07/01/19 01:28 Last Admin: 05/04/19 08:43 Dose: 650 mg Acetaminophen/Hydrocodone Bitart ([place] 5mg/325mg) 1 tab PO Q6H PRN PRN Reason: Severe Pain Stop: 07/03/19 11:51 Last Admin: 05/04/19 17:46 Dose: 1 tab Amlodipine Besylate (Norvasc) 10 mg PO DAILY [facility] Stop: 07/02/19 08:59 Last Admin: 05/04/19 08:43 Dose: 10 mg Enoxaparin Sodium (Lovenox) 40 mg SUBQ DAILY [facility] Stop: 07/01/19 08:59 Last Admin: 05/04/19 08:44 Dose: 40 mg Piperacillin Sod/Tazobactam (Sod 4.5 gm/ Sodium Chloride) 100 mls @ 100 mls/hr IV Q8HR [facility] Stop: 07/03/19 20:59 Vancomycin HCl 2 gm/ Sodium (Chloride) 500 mls @ 250 mls/hr IV Q8H [facility] Stop: 07/03/19 15:59 Last Infusion: 05/04/19 18:37 Dose: Infused Insulin Glargine (Lantus Insulin) 30 units SUBQ [facility] Stop: 07/01/19 21:59 Last Admin: 05/03/19 20:25 Dose: 30 units Insulin Human Lispro (Humalog Insulin Sliding Scale) 0 units SUBQ [facility]; Protocol Stop: 07/01/19 07:29 Last Admin: 05/04/19 17:46 Dose: 3 units Lisinopril (Zestril) 5 mg PO DAILY [facility] Stop: 07/02/19 08:59 Last Admin: 05/04/19 08:43 Dose: 5 mg Loratadine (Claritin) 10 mg PO DAILY [facility] Stop: 07/02/19 08:59 Last Admin: 05/04/19 08:42 Dose: 10 mg Metformin HCl (Glucophage) 1,000 mg PO BIDWM [facility] Stop: 07/01/19 07:59 Last Admin: 05/04/19 17:46 Dose: 1,000 mg Metoprolol Tartrate (Lopressor) 100 mg PO DAILY [facility] Stop: 07/02/19 08:59 Last Admin: 05/04/19 08:42 Dose: 100 mg Miscellaneous (Vancomycin Iv Per Pharmacy) 1 ea MC PRN [facility] Stop: 07/03/19 14:29 Montelukast Sodium (Singulair) 10 mg PO HS [facility] Stop: 07/02/19 20:59 Last Admin: 05/03/19 20:27 Dose: 10 mg Mupirocin (Bactroban Oint) 1 appl TP BID [facility] Stop: 07/02/19 08:59 Last Admin: 05/04/19 17:50 Dose: 1 appl Pantoprazole Sodium (Protonix) 40 mg PO QDAC [facility] Stop: 07/02/19 07:29 Last Admin: 05/04/19 06:48 Dose: 40 mg Simvastatin (Zocor) 20 mg PO HS [facility]; Protocol Stop: 07/02/19 20:59 Last Admin: 05/03/19 20:27 Dose: 20 mg Tramadol HCl (Ultram) 50 mg PO Q6HR PRN PRN Reason: Pain (Moderate) Stop: 07/01/19 21:28 Last Admin: 05/04/19 14:02 Dose: 50 mg Vitamin D (Vitamin D3) 2,000 iu PO DAILY [facility] Stop: 07/02/19 08:59 Last Admin: 05/04/19 08:42 Dose: 2,000 iu General: alert HEENT: NC/AT, PERRLA, EOMI, anicteric sclerae, throat clear Neck: Supple, No JVD, No thyromegaly, +2 carotid pulse wo bruit, No LAD Lungs: CTAB Cardiovascular: RRR, Normal S1, Normal S2, without murmur Abdomen: soft, non-tender, non-distended Extremities: clear, rash, other (THERE IS A LUMP ON BACK OF HIS LEFT CULF AREA) Neurological: no change Internal Medicine Assmt/Plan - Assessment Assessment: 1.CELLULITIS OF LOWER EXTREM. 2.IDDM 3.FOOT PRESSURE ULCERS - Plan Plan: CONTINUE ON CURRENT MEDICATION AND DIET. Nutritional Asmnt/Malnutr-PDOC - Dietary Evaluation Malnutrition Findings (Please click <Entered> for more info): Nutritional Asmnt/Malnutrition Start: 05/02/19 14: 21 Text: Status: Complete Freq: Protocol: Document 05/02/19 14:21 ROSIE (Rec: 05/02/19 14:28 ROSIE [id number]) Nutritional Asmnt/Malnutrition Patient General Information Nutritional Screening High Risk Diagnosis CELLULITIS LOWER EXTREMITIES, DIABETES Pertinent Medical Hx/Surgical Hx DM, HEART DISEASE, HTN, OBESITY Subjective Information IA, HIGH RISK, CONSULT: DIABETIC, UNCONTROLLED PT DOWNGRADED TO MODERATE RISK PT IS A 53 YEAR OLD MALE ADMITTED ON 05/02 C/O SWOLEN FEET AND LEGS WITH FEVER. PT HAS HAD DIFFICULTY WALKING LATELY. SPOKE WITH MN AT BEDSIDE AFTER LUNCH. PT WAS PLEASANT AND STATED HE ENJOYED BREAKFAST AND LUNCH, EATING 100%. DISCUSSED PT ROUTINE AT HOME CONCERNING DM CARE AND MANAGEMENT. PT STATED HE EATS OUT, DOES NOT COOK. PROVIDED PT WITH EDUCATION MATERIALS AND DISCUSSED HEALTHIER CHOICES WHEN EATING OUT TO MANAGE HID DM. PT WAS ACCEPTING OF THE INFORMATION AND VERBALIZED UNDERSTANDING. PT WAS NOT INTERESTED IN ANY OUTPATIENT DM EDUCATION/ COUNSELING. HT: 61 WT: 280 LB (127.27 KG) ABW: 218 LB (99.10) BMI: 36.94 (OBESE, CLASS II) GI: WNL, SOFT, LARGE, NON- TENDER BM: NOT NOTED I/O: 100/NOT NOTED SKIN: WARM, DRY, ELASTIC, FAIZAN LOWER EXTREMITIES REDENNED WITH PAIN AND SWELLING WOUND: ABD OPEN SCAB, RT FOOT 5TH TOE WOUND ANDREA: 22 DIET ORDER: [facility] 45 ESTIMATED ENERGY NEEDS: (OBESE II, ABW) 1038-1896 KCALS (20-25 KCALS/ KG) 79-89G PRO (0.8-0.9 G/KG) 3400-4000ML (35-40 ML/KG) Current Diet Order/ Nutrition Support [facility] 45 Pertinent Medications INS-SS, GLUCOPHAGE Pertinent Labs 05/02: NA 134, GLUCOSE 229, ALB 3.2 POC GLUCOSE (LAST 24 HOURS): 262,296,236 Nutritional Hx/Data Height 1.85 m Height (Calculated Centimeters) 185.4 Current Weight (lbs) 127.006 kg Weight (Calculated Kilograms) 127.0 Weight (Calculated Grams) 325388.9 Fork Body Weight 184 LB % [place]ork Body Weight 152 Body Mass Index (BMI) 36.9 Weight Status Obese GI Symptoms GI Symptoms None Last BM NOT NOTED Usual diet at home REGULAR Skin Integrity/Comment: SKIN: WARM, DRY, ELASTIC, FAIZAN LOWER EXTREMITIES REDENNED WITH PAIN AND SWELLING WOUND: ABD OPEN SCAB, RT FOOT 5TH TOE WOUND ANDREA: 22 Current %PO Good (75-100%) Estimated Nutritional Goals BEE in Kcals: Adj wt of IBW Calories/Kcals/Kg 20-25 Kcals Calculated 6452-3294 Protein: Adj wt of IBW Protein g/k.8-0.9 Protein Calculated 79-89 GM Fluid: ml 3400-4000ML (35-40 ML/KG) Nutritional Problem 3. Problem Problem LIMITED ADHERENCE TO NUTRITION -RELATED RECOMMENDATIONS Etiology R/T DM Signs/Symptoms: AEB PT SELF REPORT OF NOT FOLLOWING ANY DIET EVEN THOUGH HE HAS HAD DM EEUCATION PREVIOUSLY 2. Problem Problem OBESITY Etiology R/T EXCESSIVE ENERGY INTAKE Signs/Symptoms: AEB BMI 36.94 AND PT SELF REPORT OF EATING A LOT OF FAST FOOD 1. Problem Problem ALTERED NUTRITION RELATED LAB Etiology R/T ENDOCRINE DYSFUNCTION Signs/Symptoms: AEB HX DM AND GLUCOSE 229-296 Malnutrition Related to Morbid Obesity Malnutrition related to morbid obesity No Intervention/Recommendation Comments 1. CONTINUE WITH [facility] 45GM DIET ORDERED. 2. CONTINUE ANTIHYPERGLYCEMIC MEDICATIONS PER MD ORDER. 3. PROVIDE PT WITH DM EDUCATION AND EDUCATION MATERIALS TO TAKE HOME ( COMPLETED). Expected Outcomes/Goals Expected Outcomes/Goals 1. PO INTAKE TO MEET > 75% OF NUTRITIONAL NEEDS. 2. MONITOR PO INTAKE, WT, NUTRITION RELATED LABS AND SKIN INTEGRITY. 3. NUTRITION RELATED LABS TO TREND WNL IN 3-5 DAYS. 4. F/U MODERATE RISK IN 3-5 DAYS 05/05-05/07
[2019-05-04] MEDS: Insulin Glargine 100 units/ml 10ml Vial SUBQ SCH (21:10)
--- NOTE | 2019-05-04 22:14 | Consultation ---
DATE OF CONSULTATION: 05/04/2019 INFECTIOUS DISEASE CONSULTATION REFERRING PHYSICIAN: Dr. Dubon. REASON FOR CONSULTATION: Leukocytosis, right foot cellulitis and has abscess. HISTORY OF PRESENT ILLNESS: The patient is a 53-year-old male with a past medical history of diabetes mellitus type 1, hypertension, aortic valve disease, presented to ER with redness and swelling of the right lower extremity with a painful left foot. On initial evaluation, the patient's temperature was 99.8 degrees Fahrenheit and WBC count was 20,100. Blood cultures done and the patient was started on Unasyn. The patient continued to have high leukocytosis. ID consult was called for further antibiotic management. PAST MEDICAL HISTORY: Includes diabetes mellitus type 1, aortic valve disease and hypertension. ALLERGIES: NKDA. MEDICATIONS: As per medication reconciliation sheet. Antibiotic diamond, the patient is on Unasyn. PAST SURGICAL HISTORY: Includes aortic valve placement. SOCIAL HISTORY: Denies any smoking, alcohol or drug use. FAMILY HISTORY: Noncontributory. REVIEW OF SYSTEMS: GENERAL: The patient denies any fever or chills. HEENT: No diplopia, no photophobia, no sore throat. RESPIRATORY: No cough, no shortness of breath. CARDIOVASCULAR: No chest pain or palpitation. GASTROINTESTINAL: No nausea, no vomiting, no diarrhea or constipation. GENITOURINARY: No dysuria. NEUROLOGIC: No headache, no dizziness, no focal weakness. MUSCULOSKELETAL: The patient has swelling and a painful right foot laterally. The patient also has painful left foot with callus at the bottom. PHYSICAL EXAMINATION: CURRENT VITAL SIGNS: Shows temperature is 96.8, pulse 67, respiration is 20, blood pressure 109/70. GENERAL: The patient is comfortable, lying in the bed, not in acute distress, obese. HEENT: Head is normocephalic, atraumatic. Oral cavity moist, pink tongue. NECK: Supple, no JVD, no carotid bruit. Trachea in midline. CHEST: Bilateral breath sounds. No crackles or wheezing. HEART: S1, S2 within normal limits. Regular rhythm. No murmur or gallop. ABDOMEN: Soft, nontender, nondistended. Bowel sounds present. Just below the umbilicus, there is a large ulcer without any discharge, no erythema. EXTREMITIES: No cyanosis, no clubbing, no edema. The patient has erythema and tender swelling of the right foot laterally. The patient also has a callus on the left foot on the forefoot on undersurface. CENTRAL NERVOUS SYSTEM: Alert, awake, oriented x 3. LABORATORY DATA: Current lab shows WBC count 18,800, hemoglobin is 14.2, hematocrit 42.1, platelets are 270,000, neutrophil is 61%. INR 1.04. Sodium is 132, potassium 4, chloride 98, bicarbonate is 24, BUN is 8, creatinine 0.7, glucose is 231. Urinalysis: Clear urine, negative nitrite, negative leukoesterase. Toxicology positive for amphetamine. RPR nonreactive. IMPRESSION: 1. Leukocytosis, suspect sepsis. Blood cultures are negative so far. 2. Right foot abscess, cellulitis, may have osteomyelitis. 3. Diabetes mellitus type 1. 4. Left foot callus. 5. Ventral hernia or umbilical hernia. 6. Abdominal wall wound without any sign of infection. 7. Obesity. RECOMMENDATIONS: We will change antibiotic to vancomycin and Zosyn. MRI of the right foot, rule out osteomyelitis and abscess, if it comes positive, may get a surgical consultation. Again, the arterial study also to rule out peripheral arterial disease. Further care as per Dr. Dubon. Thank you, Dr. Dubon for involving me in taking care of this patient. JOB# [id number]
[2019-05-05] MEDS: Pantoprazole 40 mg EC Tab PO SCH (06:30)
--- NOTE | 2019-05-05 08:06 | Diagnostic Imaging Report ---
Bilateral lower extremity arterial Doppler study HISTORY: Pain COMPARISON: None Technique: Longitudinal and transverse sonographic images of the bilateral lower extremity arteries were obtained with doppler analysis. FINDINGS: Exam of the right side demonstrates primarily triphasic waveforms. Mild to moderate atherosclerosis is noted. No evidence of occlusion. Exam of the left side demonstrates primarily triphasic waveforms. Mild to moderate atherosclerosis is noted. No evidence of occlusion. Right JONNY 1.1 Left JONNY 1.2 IMPRESSION: Mild to moderate atherosclerotic vascular disease. No significant focal stenosis.
[2019-05-05] MEDS: INSULIN LISPRO SLIDING SCALE 100 UNITS/ML UNIT SUBQ SCH ×4 (08:08→20:52)
[2019-05-05] MEDS: Enoxaparin 40 mg/0.4 mL 0.4mL Syr SUBQ SCH (08:08)
[2019-05-05] MEDS: Vitamin D3 2,000 IU SGL PO SCH (08:11)
[2019-05-05] MEDS: Hydrocodone/APAP 5mg/325mg Tab PO PRN (08:18)
[2019-05-05] MEDS ORDERED: Probiotic Screen MC PRN (14:54)
--- NOTE | 2019-05-05 19:50 | Infectious Disease Prog Note ---
Infectious Disease Subjective - Review of Systems Service Date: 05/05/19 Events since last encounter: none Subjective: There is no new change, no fever. Infectious Disease Objective - Results Result Diagrams: 05/04/19 04:50 05/03/19 06:35 Recent Labs: Laboratory Last Values WBC 18.8 Th/cmm (4.8-10.8) H 05/04/19 04:50 RBC 4.53 Mil/cmm (4.30-5.70) 05/04/19 04:50 Hgb 14.2 gm/dL (12-16) 05/04/19 04:50 Hct 42.1 % (41.0-60) 05/04/19 04:50 MCV 92.9 fl (80-99) 05/04/19 04:50 MCH 31.3 pg (26.0-30.0) H 05/04/19 04:50 MCHC Differential 33.7 pg (28.0-36.0) 05/04/19 04:50 RDW 12.6 % (11.5-20.0) 05/04/19 04:50 Plt Count 270 Th/cmm (150-400) 05/04/19 04:50 MPV 8.1 fl 05/04/19 04:50 Add Manual Diff YES 05/04/19 04:50 Band Neutrophils % 2 % (0-10) 05/04/19 04:50 Neutrophils (Manual) 61 % (40-80) 05/04/19 04:50 Lymphocytes 26 % (20-50) 05/04/19 04:50 Monocytes 9 % (2-10) 05/04/19 04:50 Eosinophils 2 % (0-5) 05/04/19 04:50 Basophils 0 % (0-3) 05/03/19 06:35 Platelet Estimate ADEQUATE (NORMAL) 05/04/19 04:50 ESR 67 mm/hr (0-20) H 05/05/19 06:30 PT 10.8 SECONDS (9.5-11.5) 05/01/19 22:50 INR 1.04 (0.5-1.4) 05/01/19 22:50 PTT (Actin FS) 25.1 SECONDS (26.0-38.0) L 05/01/19 22:50 D-Dimer 781 ng/mL (100-400) H 05/01/19 22:50 Sodium 132 mEq/L (136-145) L 05/03/19 06:35 Potassium 4.0 mEq/L (3.5-5.1) 05/03/19 06:35 Chloride 98 mEq/L (98-107) 05/03/19 06:35 Carbon Dioxide 24.3 mEq/L (21.0-31.0) 05/03/19 06:35 Anion Gap 13.7 (7.0-16.0) 05/03/19 06:35 BUN 8 mg/dL (7-25) 05/03/19 06:35 Creatinine 0.7 mg/dL (0.7-1.3) 05/03/19 06:35 Est GFR ( Amer) > 60.0 ml/min (>90) 05/03/19 06:35 Est GFR (Non-Af Amer) > 60.0 ml/min 05/03/19 06:35 BUN/Creatinine Ratio 11.4 05/03/19 06:35 Glucose 231 mg/dL (70-105) H 05/03/19 06:35 POC Glucose 193 MG/DL (70 - 105) H 05/05/19 16:21 Whole Bld Lactic Acid 1.76 mmol/L (0.60-1.99) 05/01/19 22:50 Calcium 9.2 mg/dL (8.6-10.3) 05/03/19 06:35 Total Bilirubin 0.5 mg/dL (0.3-1.0) 05/03/19 06:35 AST 20 U/L (13-39) 05/03/19 06:35 ALT 27 U/L (7-52) 05/03/19 06:35 Alkaline Phosphatase 63 U/L (34-104) 05/03/19 06:35 Troponin I 0.02 ng/mL (0.01-0.05) 05/01/19 22:50 C-Reactive Protein 13.9 mg/dL (0.0-0.9) H 05/05/19 06:30 B-Natriuretic Peptide 100.0 pg/mL (5.0-100.0) 05/01/19 22:50 Total Protein 7.4 gm/dL (6.0-8.3) 05/03/19 06:35 Albumin 3.3 gm/dL (4.2-5.5) L 05/03/19 06:35 Globulin 4.1 gm/dL 05/03/19 06:35 Albumin/Globulin Ratio 0.8 (1.0-1.8) L 05/03/19 06:35 Triglycerides 97 mg/dL (<150) 05/01/19 22:50 Cholesterol 125 mg/dL (<200) 05/01/19 22:50 LDL Cholesterol Direct 69 mg/dL (75-193) L 05/01/19 22:50 HDL Cholesterol 46 mg/dL (23-92) 05/01/19 22:50 TSH 0.76 uIU/ml (0.34-5.60) 05/01/19 22:50 Urine Source CLEAN C 05/01/19 20:56 Urine Color YELLOW 05/01/19 20:56 Urine Clarity CLEAR (CLEAR) 05/01/19 20:56 Urine pH 6.5 (4.6 - 8.0) 05/01/19 20:56 Ur Specific [place] 1.010 (1.005-1.030) 05/01/19 20:56 Urine Protein NEGATIVE mg/dL (NEGATIVE) 05/01/19 20:56 Urine Glucose (UA) >=1000 mg/dL (NEGATIVE) H 05/01/19 20:56 Urine Ketones NEGATIVE mg/dL (NEGATIVE) 05/01/19 20:56 Urine Blood NEGATIVE (NEGATIVE) 05/01/19 20:56 Urine Nitrate NEGATIVE (NEGATIVE) 05/01/19 20:56 Urine Bilirubin NEGATIVE (NEGATIVE) 05/01/19 20:56 Urine Urobilinogen 1.0 E.U./dL (0.2 - 1.0) 05/01/19 20:56 Ur Leukocyte Esterase NEGATIVE (NEGATIVE) 05/01/19 20:56 Urine RBC NONE SEEN /hpf (0-5) 05/01/19 20:56 Urine WBC 0-2 /hpf (0-5) 05/01/19 20:56 Ur Epithelial Cells RARE /lpf (FEW) 05/01/19 20:56 Urine Bacteria OCCASIONAL /hpf (NONE SEEN) 05/01/19 20:56 Vancomycin Trough 30.6 ug/mL (5-10) H 05/05/19 06:30 Random Vancomycin 10.7 ug/mL (5.0-40.0) 05/05/19 15:03 Urine Opiates Screen NEGATIVE (NEGATIVE) 05/02/19 14:00 Urine Methadone Screen NEGATIVE (NEGATIVE) 05/02/19 14:00 Ur Barbiturates Screen NEGATIVE (NEGATIVE) 05/02/19 14:00 Ur Tricyclics Screen NEGATIVE (NEGATIVE) 05/02/19 14:00 Ur Phencyclidine Scrn NEGATIVE (NEGATIVE) 05/02/19 14:00 Amphetamines Screen POSITIVE (NEGATIVE) H 05/02/19 14:00 U Methamphetamines Scrn NEGATIVE (NEGATIVE) 05/02/19 14:00 U Benzodiazepines Scrn NEGATIVE (NEGATIVE) 05/02/19 14:00 U Cocaine Metab Screen NEGATIVE (NEGATIVE) 05/02/19 14:00 U Cannabinoids Screen NEGATIVE (NEGATIVE) 05/02/19 14:00 RPR NONREACTIVE (NONREACTIVE) 05/01/19 22:50 - Physical Exam Vitals and I&O: Vital Signs Temp 98.9 F 05/05/19 16:22 Pulse 72 05/05/19 16:22 Resp 20 05/05/19 16:22 BP 100/65 05/05/19 16:22 Pulse Ox 100 05/05/19 16:22 Intake & Output 05/05/19 05/05/19 05/06/19 06:59 18:59 06:59 Intake Total 600 950 Output Total 750 1075 Balance -150 -125 Weight (lbs) 129.274 kg 129.274 kg Intake: Intake, IV Amount 200 Piperacillin Sodium/ 200 Tazobact 4.5 gm In Sodium Chloride 0.9% 100 ml @ 100 mls/hr IV Q8HR [facility] Rx #:[id number] Oral 400 950 Output: Urine 750 1075 Other: # Bowel Movements 0 0 Weight Source Bedscale Bedscale Active Medications: Current Medications Acetaminophen (Tylenol) 650 mg PO Q4HR PRN PRN Reason: Pain or Fever >101 Stop: 07/01/19 01:28 Last Admin: 05/05/19 17:55 Dose: 650 mg Acetaminophen/Hydrocodone Bitart ([place] 5mg/325mg) 1 tab PO Q6H PRN PRN Reason: Severe Pain Stop: 07/03/19 11:51 Last Admin: 05/05/19 08:18 Dose: 1 tab Amlodipine Besylate (Norvasc) 10 mg PO DAILY [facility] Stop: 07/02/19 08:59 Last Admin: 05/05/19 08:18 Dose: 10 mg Enoxaparin Sodium (Lovenox) 40 mg SUBQ DAILY [facility] Stop: 07/01/19 08:59 Last Admin: 05/05/19 08:08 Dose: 40 mg Piperacillin Sod/Tazobactam (Sod 4.5 gm/ Sodium Chloride) 100 mls @ 100 mls/hr IV Q8HR [facility] Stop: 07/03/19 20:59 Last Admin: 05/05/19 12:07 Dose: 100 mls/hr Vancomycin HCl 1 gm/ Sodium (Chloride) 250 mls @ 165 mls/hr IV Q8H [facility] Stop: 07/04/19 16:59 Last Admin: 05/05/19 17:07 Dose: 165 mls/hr Insulin Glargine (Lantus Insulin) 30 units SUBQ [facility] Stop: 07/01/19 21:59 Last Admin: 05/04/19 21:10 Dose: 30 units Insulin Human Lispro (Humalog Insulin Sliding Scale) 0 units SUBQ [facility]; Protocol Stop: 07/01/19 07:29 Last Admin: 05/05/19 17:07 Dose: 3 units Lisinopril (Zestril) 5 mg PO DAILY [facility] Stop: 07/02/19 08:59 Last Admin: 05/05/19 08:18 Dose: 5 mg Loratadine (Claritin) 10 mg PO DAILY [facility] Stop: 07/02/19 08:59 Last Admin: 05/05/19 08:11 Dose: 10 mg Metformin HCl (Glucophage) 1,000 mg PO BIDWM [facility] Stop: 07/01/19 07:59 Last Admin: 05/05/19 17:06 Dose: 1,000 mg Metoprolol Tartrate (Lopressor) 100 mg PO DAILY [facility] Stop: 07/02/19 08:59 Last Admin: 05/05/19 08:18 Dose: 100 mg Miscellaneous (Vancomycin Iv Per Pharmacy) 1 ea PRN [facility] Stop: 07/03/19 14:29 Miscellaneous (Probiotic Screen) 1 ea PRN PRN PRN Reason: PROTOCOL Stop: 07/04/19 14:53 Montelukast Sodium (Singulair) 10 mg PO HS [facility] Stop: 07/02/19 20:59 Last Admin: 05/04/19 21:09 Dose: 10 mg Mupirocin (Bactroban Oint) 1 appl TP BID [facility] Stop: 07/02/19 08:59 Last Admin: 05/05/19 17:07 Dose: 1 appl Pantoprazole Sodium (Protonix) 40 mg PO QDAC [facility] Stop: 07/02/19 07:29 Last Admin: 05/05/19 06:30 Dose: 40 mg Simvastatin (Zocor) 20 mg PO HS [facility]; Protocol Stop: 07/02/19 20:59 Last Admin: 05/04/19 21:10 Dose: 20 mg Tramadol HCl (Ultram) 50 mg PO Q6HR PRN PRN Reason: Pain (Moderate) Stop: 07/01/19 21:28 Last Admin: 05/04/19 14:02 Dose: 50 mg Vitamin D (Vitamin D3) 2,000 iu PO DAILY [facility] Stop: 07/02/19 08:59 Last Admin: 05/05/19 08:11 Dose: 2,000 iu General: no acute distress, well developed, well nourished HEENT: atraumatic, normocephalic, PERRLA, EOMI Neck: supple, no thyromegaly Cardiovascular: S1S2, regular Lungs: clear to auscultation bilaterally, clear to percussion Abdomen: soft, no tender, no distended Extremities: other (The patient has erythema and tender swelling of the right foot laterally. The patient also has a callus on left forefoot.), no cyanosis, no clubbing, no edema Neurological: awake, alert, oriented Infectious Disease Assmt/Plan - Assessment Assessment: 1. Leukocytosis, suspect sepsis. Blood cultures are negative so far. 2. Right foot abscess, cellulitis, may have osteomyelitis. 3. Diabetes mellitus type 1. 4. Left foot callus. 5. Ventral hernia or umbilical hernia. 6. Abdominal wall wound without any sign of infection. 7. Obesity. - Plan Plan: MRI was cancelled. I would recommend MRI of the foot over the bone scan in this case. If there is any disagreement, may consider 2nd ID opinion. May transfer higher level of care for podiatry or orthopedic consultation, as well as MRI. Inform the RN fred Dubon. Nutritional Asmnt/Malnutr-PDOC - Dietary Evaluation Malnutrition Findings (Please click <Entered> for more info): Nutritional Asmnt/Malnutrition Start: 05/02/19 14: 21 Text: Status: Complete Freq: Protocol: Document 05/02/19 14:21 ROSIE (Rec: 05/02/19 14:28 ROSIE [id number]) Nutritional Asmnt/Malnutrition Patient General Information Nutritional Screening High Risk Diagnosis CELLULITIS LOWER EXTREMITIES, DIABETES Pertinent Medical Hx/Surgical Hx DM, HEART DISEASE, HTN, OBESITY Subjective Information IA, HIGH RISK, CONSULT: DIABETIC, UNCONTROLLED PT DOWNGRADED TO MODERATE RISK PT IS A 53 YEAR OLD MALE ADMITTED ON 05/02 C/O SWOLEN FEET AND LEGS WITH FEVER. PT HAS HAD DIFFICULTY WALKING LATELY. SPOKE WITH [place] AT BEDSIDE AFTER LUNCH. PT WAS PLEASANT AND STATED HE ENJOYED BREAKFAST AND LUNCH, EATING 100%. DISCUSSED PT ROUTINE AT HOME CONCERNING DM CARE AND MANAGEMENT. PT STATED HE EATS OUT, DOES NOT COOK. PROVIDED PT WITH EDUCATION MATERIALS AND DISCUSSED HEALTHIER CHOICES WHEN EATING OUT TO MANAGE HID DM. PT WAS ACCEPTING OF THE INFORMATION AND VERBALIZED UNDERSTANDING. PT WAS NOT INTERESTED IN ANY OUTPATIENT DM EDUCATION/ COUNSELING. HT: 61 WT: 280 LB (127.27 KG) ABW: 218 LB (99.10) BMI: 36.94 (OBESE, CLASS II) GI: WNL, SOFT, LARGE, NON- TENDER BM: NOT NOTED I/O: 100/NOT NOTED SKIN: WARM, DRY, ELASTIC, FAIZAN LOWER EXTREMITIES REDENNED WITH PAIN AND SWELLING WOUND: ABD OPEN SCAB, RT FOOT 5TH TOE WOUND ANDREA: 22 DIET ORDER: [facility] 45 ESTIMATED ENERGY NEEDS: (OBESE II, ABW) 7926-6756 KCALS (20-25 KCALS/ KG) 79-89G PRO (0.8-0.9 G/KG) 3400-4000ML (35-40 ML/KG) Current Diet Order/ [facility] Pertinent Medications INS-SS, GLUCOPHAGE Pertinent Labs 05/02: NA 134, GLUCOSE 229, ALB 3.2 POC GLUCOSE (LAST 24 HOURS): 262,296,[phone] Nutritional Hx/Data Height 1.85 m Height (Calculated Centimeters) 185.4 Current Weight (lbs) 127.006 kg Weight (Calculated Kilograms) 127.0 Weight (Calculated Grams) 269810.9 [place] Body Weight 184 LB % [place] Body Weight 152 Body Mass Index (BMI) 36.9 Weight Status Obese GI Symptoms GI Symptoms None Last BM NOT NOTED Usual diet at home REGULAR Skin Integrity/Comment: SKIN: WARM, DRY, ELASTIC, FAIZAN LOWER EXTREMITIES REDENNED WITH PAIN AND SWELLING WOUND: ABD OPEN SCAB, RT FOOT 5TH TOE WOUND ANDREA: 22 Current %PO Good (75-100%) Estimated Nutritional Goals BEE in Kcals: Adj wt of IBW Calories/Kcals/Kg 20-25 Kcals Calculated Protein: Adj wt of IBW Protein g/k.8-0.9 Protein Calculated 79-89 GM Fluid: ml 3400-4000ML (35-40 ML/KG) Nutritional Problem 3. Problem Problem LIMITED ADHERENCE TO NUTRITION -RELATED RECOMMENDATIONS Etiology R/T DM Signs/Symptoms: AEB PT SELF REPORT OF NOT FOLLOWING ANY DIET EVEN THOUGH HE HAS HAD DM EEUCATION PREVIOUSLY 2. Problem Problem OBESITY Etiology R/T EXCESSIVE ENERGY INTAKE Signs/Symptoms: AEB BMI 36.94 AND PT SELF REPORT OF EATING A LOT OF FAST FOOD 1. Problem Problem ALTERED NUTRITION RELATED LAB Etiology R/T ENDOCRINE DYSFUNCTION Signs/Symptoms: AEB HX DM AND GLUCOSE 229-296 Malnutrition Related to Morbid Obesity Malnutrition related to morbid obesity No Intervention/Recommendation Comments 1. CONTINUE WITH [facility] 45GM DIET ORDERED. 2. CONTINUE ANTIHYPERGLYCEMIC MEDICATIONS PER MD ORDER. 3. PROVIDE PT WITH DM EDUCATION AND EDUCATION MATERIALS TO TAKE HOME ( COMPLETED). Expected Outcomes/Goals Expected Outcomes/Goals 1. PO INTAKE TO MEET > 75% OF NUTRITIONAL NEEDS. 2. MONITOR PO INTAKE, WT, NUTRITION RELATED LABS AND SKIN INTEGRITY. 3. NUTRITION RELATED LABS TO TREND WNL IN 3-5 DAYS. 4. F/U MODERATE RISK IN 3-5 DAYS 05/05-05/07
[2019-05-05] MEDS: Insulin Glargine 100 units/ml 10ml Vial SUBQ SCH (20:53)
--- NOTE | 2019-05-05 23:17 | Internal Medicine Prog Note ---
Internal Medicine Subjective - Subjective Service Date: 05/05/19 Patient seen and examined:: with staff (HE HAS LESS PAIN,NO FEVER) Patient is:: awake, verbal, in bed, talking Per staff patient has:: no adverse event Internal Medicine Objective - Results Result Diagrams: 05/04/19 04:50 05/03/19 06:35 Recent Labs: Laboratory Last Values WBC 18.8 Th/cmm (4.8-10.8) H 05/04/19 04:50 RBC 4.53 Mil/cmm (4.30-5.70) 05/04/19 04:50 Hgb 14.2 gm/dL (12-16) 05/04/19 04:50 Hct 42.1 % (41.0-60) 05/04/19 04:50 MCV 92.9 fl (80-99) 05/04/19 04:50 MCH 31.3 pg (26.0-30.0) H 05/04/19 04:50 MCHC Differential 33.7 pg (28.0-36.0) 05/04/19 04:50 RDW 12.6 % (11.5-20.0) 05/04/19 04:50 Plt Count 270 Th/cmm (150-400) 05/04/19 04:50 MPV 8.1 fl 05/04/19 04:50 Add Manual Diff YES 05/04/19 04:50 Band Neutrophils % 2 % (0-10) 05/04/19 04:50 Neutrophils (Manual) 61 % (40-80) 05/04/19 04:50 Lymphocytes 26 % (20-50) 05/04/19 04:50 Monocytes 9 % (2-10) 05/04/19 04:50 Eosinophils 2 % (0-5) 05/04/19 04:50 Basophils 0 % (0-3) 05/03/19 06:35 Platelet Estimate ADEQUATE (NORMAL) 05/04/19 04:50 ESR 67 mm/hr (0-20) H 05/05/19 06:30 PT 10.8 SECONDS (9.5-11.5) 05/01/19 22:50 INR 1.04 (0.5-1.4) 05/01/19 22:50 PTT (Actin FS) 25.1 SECONDS (26.0-38.0) L 05/01/19 22:50 D-Dimer 781 ng/mL (100-400) H 05/01/19 22:50 Sodium 132 mEq/L (136-145) L 05/03/19 06:35 Potassium 4.0 mEq/L (3.5-5.1) 05/03/19 06:35 Chloride 98 mEq/L (98-107) 05/03/19 06:35 Carbon Dioxide 24.3 mEq/L (21.0-31.0) 05/03/19 06:35 Anion Gap 13.7 (7.0-16.0) 05/03/19 06:35 BUN 8 mg/dL (7-25) 05/03/19 06:35 Creatinine 0.7 mg/dL (0.7-1.3) 05/03/19 06:35 Est GFR ( Amer) > 60.0 ml/min (>90) 05/03/19 06:35 Est GFR (Non-Af Amer) > 60.0 ml/min 05/03/19 06:35 BUN/Creatinine Ratio 11.4 05/03/19 06:35 Glucose 231 mg/dL (70-105) H 05/03/19 06:35 POC Glucose 207 MG/DL (70 - 105) H 05/05/19 20:45 Whole Bld Lactic Acid 1.76 mmol/L (0.60-1.99) 05/01/19 22:50 Calcium 9.2 mg/dL (8.6-10.3) 05/03/19 06:35 Total Bilirubin 0.5 mg/dL (0.3-1.0) 05/03/19 06:35 AST 20 U/L (13-39) 05/03/19 06:35 ALT 27 U/L (7-52) 05/03/19 06:35 Alkaline Phosphatase 63 U/L (34-104) 05/03/19 06:35 Troponin I 0.02 ng/mL (0.01-0.05) 05/01/19 22:50 C-Reactive Protein 13.9 mg/dL (0.0-0.9) H 05/05/19 06:30 B-Natriuretic Peptide 100.0 pg/mL (5.0-100.0) 05/01/19 22:50 Total Protein 7.4 gm/dL (6.0-8.3) 05/03/19 06:35 Albumin 3.3 gm/dL (4.2-5.5) L 05/03/19 06:35 Globulin 4.1 gm/dL 05/03/19 06:35 Albumin/Globulin Ratio 0.8 (1.0-1.8) L 05/03/19 06:35 Triglycerides 97 mg/dL (<150) 05/01/19 22:50 Cholesterol 125 mg/dL (<200) 05/01/19 22:50 LDL Cholesterol Direct 69 mg/dL (75-193) L 05/01/19 22:50 HDL Cholesterol 46 mg/dL (23-92) 05/01/19 22:50 TSH 0.76 uIU/ml (0.34-5.60) 05/01/19 22:50 Urine Source CLEAN C 05/01/19 20:56 Urine Color YELLOW 05/01/19 20:56 Urine Clarity CLEAR (CLEAR) 05/01/19 20:56 Urine pH 6.5 (4.6 - 8.0) 05/01/19 20:56 Ur Specific [place] 1.010 (1.005-1.030) 05/01/19 20:56 Urine Protein NEGATIVE mg/dL (NEGATIVE) 05/01/19 20:56 Urine Glucose (UA) >=1000 mg/dL (NEGATIVE) H 05/01/19 20:56 Urine Ketones NEGATIVE mg/dL (NEGATIVE) 05/01/19 20:56 Urine Blood NEGATIVE (NEGATIVE) 05/01/19 20:56 Urine Nitrate NEGATIVE (NEGATIVE) 05/01/19 20:56 Urine Bilirubin NEGATIVE (NEGATIVE) 05/01/19 20:56 Urine Urobilinogen 1.0 E.U./dL (0.2 - 1.0) 05/01/19 20:56 Ur Leukocyte Esterase NEGATIVE (NEGATIVE) 05/01/19 20:56 Urine RBC NONE SEEN /hpf (0-5) 05/01/19 20:56 Urine WBC 0-2 /hpf (0-5) 05/01/19 20:56 Ur Epithelial Cells RARE /lpf (FEW) 05/01/19 20:56 Urine Bacteria OCCASIONAL /hpf (NONE SEEN) 05/01/19 20:56 Vancomycin Trough 30.6 ug/mL (5-10) H 05/05/19 06:30 Random Vancomycin 10.7 ug/mL (5.0-40.0) 05/05/19 15:03 Urine Opiates Screen NEGATIVE (NEGATIVE) 05/02/19 14:00 Urine Methadone Screen NEGATIVE (NEGATIVE) 05/02/19 14:00 Ur Barbiturates Screen NEGATIVE (NEGATIVE) 05/02/19 14:00 Ur Tricyclics Screen NEGATIVE (NEGATIVE) 05/02/19 14:00 Ur Phencyclidine Scrn NEGATIVE (NEGATIVE) 05/02/19 14:00 Amphetamines Screen POSITIVE (NEGATIVE) H 05/02/19 14:00 U Methamphetamines Scrn NEGATIVE (NEGATIVE) 05/02/19 14:00 U Benzodiazepines Scrn NEGATIVE (NEGATIVE) 05/02/19 14:00 U Cocaine Metab Screen NEGATIVE (NEGATIVE) 05/02/19 14:00 U Cannabinoids Screen NEGATIVE (NEGATIVE) 05/02/19 14:00 RPR NONREACTIVE (NONREACTIVE) 05/01/19 22:50 - Physical Exam Vitals and I&O: Vital Signs Temp 98.4 F 05/05/19 20:00 Pulse 84 05/05/19 20:00 Resp 20 05/05/19 20:00 BP 126/60 05/05/19 20:00 Pulse Ox 94 05/05/19 20:00 Intake & Output 05/05/19 05/05/19 05/06/19 06:59 18:59 06:59 Intake Total 600 1050 Output Total 750 1075 Balance -150 -25 Weight (lbs) 129.274 kg 129.274 kg Intake: Intake, IV Amount 200 100 Piperacillin Sodium/ 200 100 Tazobact 4.5 gm In Sodium Chloride 0.9% 100 ml @ 100 mls/hr IV Q8HR [facility] Rx #:[id number] Oral 400 950 Output: Urine 750 1075 Other: # Bowel Movements 0 0 Weight Source Bedscale Bedscale Active Medications: Current Medications Acetaminophen (Tylenol) 650 mg PO Q4HR PRN PRN Reason: Pain or Fever >101 Stop: 07/01/19 01:28 Last Admin: 05/05/19 17:55 Dose: 650 mg Acetaminophen/Hydrocodone Bitart ([place] 5mg/325mg) 1 tab PO Q6H PRN PRN Reason: Severe Pain Stop: 07/03/19 11:51 Last Admin: 05/05/19 08:18 Dose: 1 tab Amlodipine Besylate (Norvasc) 10 mg PO DAILY [facility] Stop: 07/02/19 08:59 Last Admin: 05/05/19 08:18 Dose: 10 mg Enoxaparin Sodium (Lovenox) 40 mg SUBQ DAILY [facility] Stop: 07/01/19 08:59 Last Admin: 05/05/19 08:08 Dose: 40 mg Piperacillin Sod/Tazobactam (Sod 4.5 gm/ Sodium Chloride) 100 mls @ 100 mls/hr IV Q8HR [facility] Stop: 07/03/19 20:59 Last Admin: 05/05/19 20:51 Dose: 100 mls/hr Vancomycin HCl 1 gm/ Sodium (Chloride) 250 mls @ 165 mls/hr IV Q8H [facility] Stop: 07/04/19 16:59 Last Admin: 05/05/19 17:07 Dose: 165 mls/hr Insulin Glargine (Lantus Insulin) 34 units SUBQ [facility] Stop: 07/05/19 20:59 Insulin Human Lispro (Humalog Insulin Sliding Scale) 0 units SUBQ [facility]; Protocol Stop: 07/01/19 07:29 Last Admin: 05/05/19 20:52 Dose: 5 units Lisinopril (Zestril) 5 mg PO DAILY [facility] Stop: 07/02/19 08:59 Last Admin: 05/05/19 08:18 Dose: 5 mg Loratadine (Claritin) 10 mg PO DAILY [facility] Stop: 07/02/19 08:59 Last Admin: 05/05/19 08:11 Dose: 10 mg Metformin HCl (Glucophage) 1,000 mg PO BIDWM [facility] Stop: 07/01/19 07:59 Last Admin: 05/05/19 17:06 Dose: 1,000 mg Metoprolol Tartrate (Lopressor) 100 mg PO DAILY [facility] Stop: 07/02/19 08:59 Last Admin: 05/05/19 08:18 Dose: 100 mg Miscellaneous (Vancomycin Iv Per Pharmacy) 1 ea PRN [facility] Stop: 07/03/19 14:29 Miscellaneous (Probiotic Screen) 1 ea PRN PRN PRN Reason: PROTOCOL Stop: 07/04/19 14:53 Montelukast Sodium (Singulair) 10 mg PO [facility] Stop: 07/02/19 20:59 Last Admin: 05/05/19 20:51 Dose: 10 mg Mupirocin (Bactroban Oint) 1 appl TP BID [facility] Stop: 07/02/19 08:59 Last Admin: 05/05/19 17:07 Dose: 1 appl Pantoprazole Sodium (Protonix) 40 mg PO QDAC [facility] Stop: 07/02/19 07:29 Last Admin: 05/05/19 06:30 Dose: 40 mg Simvastatin (Zocor) 20 mg PO HS [facility]; Protocol Stop: 07/02/19 20:59 Last Admin: 05/05/19 20:51 Dose: 20 mg Tramadol HCl (Ultram) 50 mg PO Q6HR PRN PRN Reason: Pain (Moderate) Stop: 07/01/19 21:28 Last Admin: 05/04/19 14:02 Dose: 50 mg Vitamin D (Vitamin D3) 2,000 iu PO DAILY [facility] Stop: 07/02/19 08:59 Last Admin: 05/05/19 08:11 Dose: 2,000 iu General: alert HEENT: NC/AT, PERRLA, EOMI, anicteric sclerae, throat clear Neck: Supple, No JVD, No thyromegaly, +2 carotid pulse wo bruit, No LAD Lungs: CTAB Cardiovascular: RRR, Normal S1, Normal S2, without murmur Abdomen: soft, non-tender, non-distended Extremities: clear, rash, other (THERE IS A LUMP ON BACK OF HIS LEFT CULF AREA) Neurological: no change Internal Medicine Assmt/Plan - Assessment Assessment: 1.CELLULITIS OF RT FOOT. 2.IDDM 3.SEPSIS - Plan Plan: CONTINUE ON CURRENT MEDICATION AND DIET. Nutritional Asmnt/Malnutr-PDOC - Dietary Evaluation Malnutrition Findings (Please click <Entered> for more info): Nutritional Asmnt/Malnutrition Start: 05/02/19 14: 21 Text: Status: Complete Freq: Protocol: Document 05/02/19 14:21 ROSIE (Rec: 05/02/19 14:28 ROSIE [id number]) Nutritional Asmnt/Malnutrition Patient General Information Nutritional Screening High Risk Diagnosis CELLULITIS LOWER EXTREMITIES, DIABETES Pertinent Medical Hx/Surgical Hx DM, HEART DISEASE, HTN, OBESITY Subjective Information IA, HIGH RISK, CONSULT: DIABETIC, UNCONTROLLED PT DOWNGRADED TO MODERATE RISK PT IS A 53 YEAR OLD MALE ADMITTED ON 05/02 C/O SWOLEN FEET AND LEGS WITH FEVER. PT HAS HAD DIFFICULTY WALKING LATELY. SPOKE WITH [place] AT BEDSIDE AFTER LUNCH. PT WAS PLEASANT AND STATED HE ENJOYED BREAKFAST AND LUNCH, EATING 100%. DISCUSSED PT ROUTINE AT HOME CONCERNING DM CARE AND MANAGEMENT. PT STATED HE EATS OUT, DOES NOT COOK. PROVIDED PT WITH EDUCATION MATERIALS AND DISCUSSED HEALTHIER CHOICES WHEN EATING OUT TO MANAGE HID DM. PT WAS ACCEPTING OF THE INFORMATION AND VERBALIZED UNDERSTANDING. PT WAS NOT INTERESTED IN ANY OUTPATIENT DM EDUCATION/ COUNSELING. HT: 61 WT: 280 LB (127.27 KG) ABW: 218 LB (99.10) BMI: 36.94 (OBESE, CLASS II) GI: WNL, SOFT, LARGE, NON- TENDER BM: NOT NOTED I/O: 100/NOT NOTED SKIN: WARM, DRY, ELASTIC, FAIZAN LOWER EXTREMITIES REDENNED WITH PAIN AND SWELLING WOUND: ABD OPEN SCAB, RT FOOT 5TH TOE WOUND ANDREA: 22 DIET ORDER: [facility] 45 ESTIMATED ENERGY NEEDS: (OBESE II, ABW) 6388-0664 KCALS (20-25 KCALS/ KG) 79-89G PRO (0.8-0.9 G/KG) 3400-4000ML (35-40 ML/KG) Current Diet Order/ Nutrition Support [facility] 45 Pertinent Medications INS-SS, GLUCOPHAGE Pertinent Labs 05/02: NA 134, GLUCOSE 229, ALB 3.2 POC GLUCOSE (LAST 24 HOURS): 262,296,236 Nutritional Hx/Data Height 1.85 m Height (Calculated Centimeters) 185.4 Current Weight (lbs) 127.006 kg Weight (Calculated Kilograms) 127.0 Weight (Calculated Grams) 936131.9 [place] Body Weight 184 LB % [place] Body Weight 152 Body Mass Index (BMI) 36.9 Weight Status Obese GI Symptoms GI Symptoms None Last BM NOT NOTED Usual diet at home REGULAR Skin Integrity/Comment: SKIN: WARM, DRY, ELASTIC, FAIZAN LOWER EXTREMITIES REDENNED WITH PAIN AND SWELLING WOUND: ABD OPEN SCAB, RT FOOT 5TH TOE WOUND ANDREA: 22 Current %PO Good (75-100%) Estimated Nutritional Goals BEE in Kcals: Adj wt of IBW Calories/Kcals/Kg 20-25 Kcals Calculated Protein: Adj wt of IBW Protein g/k.8-0.9 Protein Calculated 79-89 GM Fluid: ml 3400-4000ML (35-40 ML/KG) Nutritional Problem 3. Problem Problem LIMITED ADHERENCE TO NUTRITION -RELATED RECOMMENDATIONS Etiology R/T DM Signs/Symptoms: AEB PT SELF REPORT OF NOT FOLLOWING ANY DIET EVEN THOUGH HE HAS HAD DM EEUCATION PREVIOUSLY 2. Problem Problem OBESITY Etiology R/T EXCESSIVE ENERGY INTAKE Signs/Symptoms: AEB BMI 36.94 AND PT SELF REPORT OF EATING A LOT OF FAST FOOD 1. Problem Problem ALTERED NUTRITION RELATED LAB Etiology R/T ENDOCRINE DYSFUNCTION Signs/Symptoms: AEB HX DM AND GLUCOSE 229-296 Malnutrition Related to Morbid Obesity Malnutrition related to morbid obesity No Intervention/Recommendation Comments 1. CONTINUE WITH [facility] 45GM DIET ORDERED. 2. CONTINUE ANTIHYPERGLYCEMIC MEDICATIONS PER MD ORDER. 3. PROVIDE PT WITH DM EDUCATION AND EDUCATION MATERIALS TO TAKE HOME ( COMPLETED). Expected Outcomes/Goals Expected Outcomes/Goals 1. PO INTAKE TO MEET > 75% OF NUTRITIONAL NEEDS. 2. MONITOR PO INTAKE, WT, NUTRITION RELATED LABS AND SKIN INTEGRITY. 3. NUTRITION RELATED LABS TO TREND WNL IN 3-5 DAYS. 4. F/U MODERATE RISK IN 3-5 DAYS 05/05-05/07
[2019-05-06] MEDS: Pantoprazole 40 mg EC Tab PO SCH (06:41)
--- NOTE | 2019-05-06 09:41 | Diagnostic Imaging Report ---
Nuclear medicine triple phase bone Scan HISTORY: Osteomyelitis COMPARISON: None Technique/procedure: 24.1 millicuries of technetium 99 labeled MDP was administered intravenously and flow, blood pool, and delayed images of the bilateral lower extremity is were obtained. FINDINGS: Flow images demonstrate increased uptake along the right forefoot. Blood pool images also demonstrate increased uptake along the right forefoot. Delayed images also demonstrate increased uptake along the right forefoot. IMPRESSION: Increased uptake within the right forefoot on flow, blood pool and delayed images. Osteomyelitis in this region cannot be excluded and further assessment with MRI is recommended. .
[2019-05-06] MEDS: Enoxaparin 40 mg/0.4 mL 0.4mL Syr SUBQ SCH (10:22)
[2019-05-06] MEDS: INSULIN LISPRO SLIDING SCALE 100 UNITS/ML UNIT SUBQ SCH ×4 (10:22→21:04)
[2019-05-06] MEDS: Vitamin D3 2,000 IU SGL PO SCH (10:23)
[2019-05-06] MEDS: Hydrocodone/APAP 5mg/325mg Tab PO PRN (21:02)
--- NOTE | 2019-05-06 21:04 | Internal Medicine Prog Note ---
Internal Medicine Subjective - Subjective Service Date: 05/06/19 Patient seen and examined:: with staff (HE FEELS BETTER,LESS PAIN) Patient is:: awake, verbal, in bed, talking Per staff patient has:: no adverse event Internal Medicine Objective - Results Result Diagrams: 05/04/19 04:50 05/03/19 06:35 Recent Labs: Laboratory Last Values WBC 18.8 Th/cmm (4.8-10.8) H 05/04/19 04:50 RBC 4.53 Mil/cmm (4.30-5.70) 05/04/19 04:50 Hgb 14.2 gm/dL (12-16) 05/04/19 04:50 Hct 42.1 % (41.0-60) 05/04/19 04:50 MCV 92.9 fl (80-99) 05/04/19 04:50 MCH 31.3 pg (26.0-30.0) H 05/04/19 04:50 MCHC Differential 33.7 pg (28.0-36.0) 05/04/19 04:50 RDW 12.6 % (11.5-20.0) 05/04/19 04:50 Plt Count 270 Th/cmm (150-400) 05/04/19 04:50 MPV 8.1 fl 05/04/19 04:50 Add Manual Diff YES 05/04/19 04:50 Band Neutrophils % 2 % (0-10) 05/04/19 04:50 Neutrophils (Manual) 61 % (40-80) 05/04/19 04:50 Lymphocytes 26 % (20-50) 05/04/19 04:50 Monocytes 9 % (2-10) 05/04/19 04:50 Eosinophils 2 % (0-5) 05/04/19 04:50 Basophils 0 % (0-3) 05/03/19 06:35 Platelet Estimate ADEQUATE (NORMAL) 05/04/19 04:50 ESR 67 mm/hr (0-20) H 05/05/19 06:30 PT 10.8 SECONDS (9.5-11.5) 05/01/19 22:50 INR 1.04 (0.5-1.4) 05/01/19 22:50 PTT (Actin FS) 25.1 SECONDS (26.0-38.0) L 05/01/19 22:50 D-Dimer 781 ng/mL (100-400) H 05/01/19 22:50 Sodium 132 mEq/L (136-145) L 05/03/19 06:35 Potassium 4.0 mEq/L (3.5-5.1) 05/03/19 06:35 Chloride 98 mEq/L (98-107) 05/03/19 06:35 Carbon Dioxide 24.3 mEq/L (21.0-31.0) 05/03/19 06:35 Anion Gap 13.7 (7.0-16.0) 05/03/19 06:35 BUN 8 mg/dL (7-25) 05/03/19 06:35 Creatinine 0.7 mg/dL (0.7-1.3) 05/03/19 06:35 Est GFR ( Amer) > 60.0 ml/min (>90) 05/03/19 06:35 Est GFR (Non-Af Amer) > 60.0 ml/min 05/03/19 06:35 BUN/Creatinine Ratio 11.4 05/03/19 06:35 Glucose 231 mg/dL (70-105) H 05/03/19 06:35 POC Glucose 221 MG/DL (70 - 105) H 05/06/19 16:07 Whole Bld Lactic Acid 1.76 mmol/L (0.60-1.99) 05/01/19 22:50 Calcium 9.2 mg/dL (8.6-10.3) 05/03/19 06:35 Total Bilirubin 0.5 mg/dL (0.3-1.0) 05/03/19 06:35 AST 20 U/L (13-39) 05/03/19 06:35 ALT 27 U/L (7-52) 05/03/19 06:35 Alkaline Phosphatase 63 U/L (34-104) 05/03/19 06:35 Troponin I 0.02 ng/mL (0.01-0.05) 05/01/19 22:50 C-Reactive Protein 13.9 mg/dL (0.0-0.9) H 05/05/19 06:30 B-Natriuretic Peptide 100.0 pg/mL (5.0-100.0) 05/01/19 22:50 Total Protein 7.4 gm/dL (6.0-8.3) 05/03/19 06:35 Albumin 3.3 gm/dL (4.2-5.5) L 05/03/19 06:35 Globulin 4.1 gm/dL 05/03/19 06:35 Albumin/Globulin Ratio 0.8 (1.0-1.8) L 05/03/19 06:35 Triglycerides 97 mg/dL (<150) 05/01/19 22:50 Cholesterol 125 mg/dL (<200) 05/01/19 22:50 LDL Cholesterol Direct 69 mg/dL (75-193) L 05/01/19 22:50 HDL Cholesterol 46 mg/dL (23-92) 05/01/19 22:50 TSH 0.76 uIU/ml (0.34-5.60) 05/01/19 22:50 Urine Source CLEAN C 05/01/19 20:56 Urine Color YELLOW 05/01/19 20:56 Urine Clarity CLEAR (CLEAR) 05/01/19 20:56 Urine pH 6.5 (4.6 - 8.0) 05/01/19 20:56 Ur Specific [place] 1.010 (1.005-1.030) 05/01/19 20:56 Urine Protein NEGATIVE mg/dL (NEGATIVE) 05/01/19 20:56 Urine Glucose (UA) >=1000 mg/dL (NEGATIVE) H 05/01/19 20:56 Urine Ketones NEGATIVE mg/dL (NEGATIVE) 05/01/19 20:56 Urine Blood NEGATIVE (NEGATIVE) 05/01/19 20:56 Urine Nitrate NEGATIVE (NEGATIVE) 05/01/19 20:56 Urine Bilirubin NEGATIVE (NEGATIVE) 05/01/19 20:56 Urine Urobilinogen 1.0 E.U./dL (0.2 - 1.0) 05/01/19 20:56 Ur Leukocyte Esterase NEGATIVE (NEGATIVE) 05/01/19 20:56 Urine RBC NONE SEEN /hpf (0-5) 05/01/19 20:56 Urine WBC 0-2 /hpf (0-5) 05/01/19 20:56 Ur Epithelial Cells RARE /lpf (FEW) 05/01/19 20:56 Urine Bacteria OCCASIONAL /hpf (NONE SEEN) 05/01/19 20:56 Vancomycin Trough 12.0 ug/mL (5-10) H 05/06/19 16:02 Random Vancomycin 10.7 ug/mL (5.0-40.0) 05/05/19 15:03 Urine Opiates Screen NEGATIVE (NEGATIVE) 05/02/19 14:00 Urine Methadone Screen NEGATIVE (NEGATIVE) 05/02/19 14:00 Ur Barbiturates Screen NEGATIVE (NEGATIVE) 05/02/19 14:00 Ur Tricyclics Screen NEGATIVE (NEGATIVE) 05/02/19 14:00 Ur Phencyclidine Scrn NEGATIVE (NEGATIVE) 05/02/19 14:00 Amphetamines Screen POSITIVE (NEGATIVE) H 05/02/19 14:00 U Methamphetamines Scrn NEGATIVE (NEGATIVE) 05/02/19 14:00 U Benzodiazepines Scrn NEGATIVE (NEGATIVE) 05/02/19 14:00 U Cocaine Metab Screen NEGATIVE (NEGATIVE) 05/02/19 14:00 U Cannabinoids Screen NEGATIVE (NEGATIVE) 05/02/19 14:00 RPR NONREACTIVE (NONREACTIVE) 05/01/19 22:50 - Physical Exam Vitals and I&O: Vital Signs Temp 97.6 F 05/06/19 20:00 Pulse 92 05/06/19 20:00 Resp 18 05/06/19 20:00 BP 130/74 05/06/19 20:00 Pulse Ox 92 05/06/19 20:00 Intake & Output 05/06/19 05/06/19 05/07/19 06:59 18:59 06:59 Intake Total 950 1100 Output Total 850 1025 Balance 100 75 Weight (lbs) 129.274 kg 129.274 kg Intake: Intake, IV Amount 450 250 Piperacillin Sodium/ 200 Tazobact 4.5 gm In Sodium Chloride 0.9% 100 ml @ 100 mls/hr IV Q8HR [facility] Rx #:[id number] Vancomycin HCl 1 gm In 250 250 Sodium Chloride 0.9% 250 ml @ 165 mls/hr IV Q8H SRIRAM Rx#:[id number] Oral 500 850 Output: Urine 850 1025 Other: # Bowel Movements 0 0 Weight Source Bedscale Bedscale Active Medications: Current Medications Acetaminophen (Tylenol) 650 mg PO Q4HR PRN PRN Reason: Pain or Fever >101 Stop: 07/01/19 01:28 Last Admin: 05/05/19 17:55 Dose: 650 mg Acetaminophen/Hydrocodone Bitart ([place] 5mg/325mg) 1 tab PO Q6H PRN PRN Reason: Severe Pain Stop: 07/03/19 11:51 Last Admin: 05/05/19 08:18 Dose: 1 tab Amlodipine Besylate (Norvasc) 10 mg PO DAILY [facility] Stop: 07/02/19 08:59 Last Admin: 05/06/19 10:24 Dose: 10 mg Enoxaparin Sodium (Lovenox) 40 mg SUBQ DAILY [facility] Stop: 07/01/19 08:59 Last Admin: 05/06/19 10:22 Dose: 40 mg Piperacillin Sod/Tazobactam (Sod 4.5 gm/ Sodium Chloride) 100 mls @ 100 mls/hr IV Q8HR [facility] Stop: 07/03/19 20:59 Last Admin: 05/06/19 12:12 Dose: 100 mls/hr Vancomycin HCl 1 gm/ Sodium (Chloride) 250 mls @ 165 mls/hr IV Q8H [facility] Stop: 07/04/19 16:59 Last Admin: 05/06/19 17:19 Dose: 165 mls/hr Insulin Glargine (Lantus Insulin) 34 units SUBQ HS [facility] Stop: 07/05/19 20:59 Insulin Human Lispro (Humalog Insulin Sliding Scale) 0 units SUBQ [facility]; Protocol Stop: 07/01/19 07:29 Last Admin: 05/06/19 17:17 Dose: 5 units Lisinopril (Zestril) 5 mg PO DAILY [facility] Stop: 07/02/19 08:59 Last Admin: 05/06/19 10:25 Dose: 5 mg Loratadine (Claritin) 10 mg PO DAILY [facility] Stop: 07/02/19 08:59 Last Admin: 05/06/19 10:25 Dose: 10 mg Metformin HCl (Glucophage) 1,000 mg PO BIDWM RS[facility] Stop: 07/01/19 07:59 Last Admin: 05/06/19 17:20 Dose: 1,000 mg Metoprolol Tartrate (Lopressor) 100 mg PO DAILY [facility] Stop: 07/02/19 08:59 Last Admin: 05/06/19 10:24 Dose: 100 mg Miscellaneous (Vancomycin Iv Per Pharmacy) 1 ea MC PRN [facility] Stop: 07/03/19 14:29 Miscellaneous (Probiotic Screen) 1 ea MC PRN PRN PRN Reason: PROTOCOL Stop: 07/04/19 14:53 Montelukast Sodium (Singulair) 10 mg PO HS [facility] Stop: 07/02/19 20:59 Last Admin: 05/05/19 20:51 Dose: 10 mg Mupirocin (Bactroban Oint) 1 appl TP BID [facility] Stop: 07/02/19 08:59 Last Admin: 05/06/19 17:20 Dose: 1 appl Pantoprazole Sodium (Protonix) 40 mg PO QDAC [facility] Stop: 07/02/19 07:29 Last Admin: 05/06/19 06:41 Dose: 40 mg Simvastatin (Zocor) 20 mg PO HS [facility]; Protocol Stop: 07/02/19 20:59 Last Admin: 05/05/19 20:51 Dose: 20 mg Tramadol HCl (Ultram) 50 mg PO Q6HR PRN PRN Reason: Pain (Moderate) Stop: 07/01/19 21:28 Last Admin: 05/04/19 14:02 Dose: 50 mg Vitamin D (Vitamin D3) 2,000 iu PO DAILY [facility] Stop: 07/02/19 08:59 Last Admin: 05/06/19 10:23 Dose: 2,000 iu General: alert HEENT: NC/AT, PERRLA, EOMI, anicteric sclerae, throat clear Neck: Supple, No JVD, No thyromegaly, +2 carotid pulse wo bruit, No LAD Lungs: CTAB Cardiovascular: RRR, Normal S1, Normal S2, without murmur Abdomen: soft, non-tender, non-distended Extremities: clear, rash, other (THERE IS A LUMP ON BACK OF HIS LEFT CULF AREA) Neurological: no change Internal Medicine Assmt/Plan - Assessment Assessment: 1.CELLULITIS OF RT FOOT. 2.IDDM 3.SEPSIS 4.POSSIBLE OSTEOMYELITIS OF RT FOOT. - Plan Plan: CONTINUE ON CURRENT MEDICATION AND DIET. Nutritional Asmnt/Malnutr-PDOC - Dietary Evaluation Malnutrition Findings (Please click <Entered> for more info): Nutritional Asmnt/Malnutrition Start: 05/02/19 14: 21 Text: Status: Complete Freq: Protocol: Document 05/02/19 14:21 ROSIE (Rec: 05/02/19 14:28 ROSIE [id number]) Nutritional Asmnt/Malnutrition Patient General Information Nutritional Screening High Risk Diagnosis CELLULITIS LOWER EXTREMITIES, DIABETES Pertinent Medical Hx/Surgical Hx DM, HEART DISEASE, HTN, OBESITY Subjective Information IA, HIGH RISK, CONSULT: DIABETIC, UNCONTROLLED PT DOWNGRADED TO MODERATE RISK PT IS A 53 YEAR OLD MALE ADMITTED ON 05/02 C/O SWOLEN FEET AND LEGS WITH FEVER. PT HAS HAD DIFFICULTY WALKING LATELY. SPOKE WITH NH AT BEDSIDE AFTER LUNCH. PT WAS PLEASANT AND STATED HE ENJOYED BREAKFAST AND LUNCH, EATING 100%. DISCUSSED PT ROUTINE AT HOME CONCERNING DM CARE AND MANAGEMENT. PT STATED HE EATS OUT, DOES NOT COOK. PROVIDED PT WITH EDUCATION MATERIALS AND DISCUSSED HEALTHIER CHOICES WHEN EATING OUT TO MANAGE HID DM. PT WAS ACCEPTING OF THE INFORMATION AND VERBALIZED UNDERSTANDING. PT WAS NOT INTERESTED IN ANY OUTPATIENT DM EDUCATION/ COUNSELING. HT: 61 WT: 280 LB (127.27 KG) ABW: 218 LB (99.10) BMI: 36.94 (OBESE, CLASS II) GI: WNL, SOFT, LARGE, NON- TENDER BM: NOT NOTED I/O: 100/NOT NOTED SKIN: WARM, DRY, ELASTIC, FAIZAN LOWER EXTREMITIES REDENNED WITH PAIN AND SWELLING WOUND: ABD OPEN SCAB, RT FOOT 5TH TOE WOUND ANDREA: 22 DIET ORDER: [facility] 45GM ESTIMATED ENERGY NEEDS: (OBESE II, ABW) 2335-5902 KCALS (20-25 KCALS/ KG) 79-89G PRO (0.8-0.9 G/KG) 3400-4000ML (35-40 ML/KG) Current Diet Order/ [facility] Pertinent Medications INS-SS, GLUCOPHAGE Pertinent Labs 05/02: NA 134, GLUCOSE 229, ALB 3.2 POC GLUCOSE (LAST 24 HOURS): 262,296,236 Nutritional Hx/Data Height 1.85 m Height (Calculated Centimeters) 185.4 Current Weight (lbs) 127.006 kg Weight (Calculated Kilograms) 127.0 Weight (Calculated Grams) 422291.9 [place] Body Weight 184 LB % [place] Body Weight 152 Body Mass Index (BMI) 36.9 Weight Status Obese GI Symptoms GI Symptoms None Last BM NOT NOTED Usual diet at home REGULAR Skin Integrity/Comment: SKIN: WARM, DRY, ELASTIC, FAIZAN LOWER EXTREMITIES REDENNED WITH PAIN AND SWELLING WOUND: ABD OPEN SCAB, RT FOOT 5TH TOE WOUND ANDREA: 22 Current %PO Good (75-100%) Estimated Nutritional Goals BEE in Kcals: Adj wt of IBW Calories/Kcals/Kg 20-25 Kcals Calculated Protein: Adj wt of IBW Protein g/k.8-0.9 Protein Calculated 79-89 GM Fluid: ml 3400-4000ML (35-40 ML/KG) Nutritional Problem 3. Problem Problem LIMITED ADHERENCE TO NUTRITION -RELATED RECOMMENDATIONS Etiology R/T DM Signs/Symptoms: AEB PT SELF REPORT OF NOT FOLLOWING ANY DIET EVEN THOUGH HE HAS HAD DM EEUCATION PREVIOUSLY 2. Problem Problem OBESITY Etiology R/T EXCESSIVE ENERGY INTAKE Signs/Symptoms: AEB BMI 36.94 AND PT SELF REPORT OF EATING A LOT OF FAST FOOD 1. Problem Problem ALTERED NUTRITION RELATED LAB Etiology R/T ENDOCRINE DYSFUNCTION Signs/Symptoms: AEB HX DM AND GLUCOSE 229-296 Malnutrition Related to Morbid Obesity Malnutrition related to morbid obesity No Intervention/Recommendation Comments 1. CONTINUE WITH [facility] 45GM DIET ORDERED. 2. CONTINUE ANTIHYPERGLYCEMIC MEDICATIONS PER MD ORDER. 3. PROVIDE PT WITH DM EDUCATION AND EDUCATION MATERIALS TO TAKE HOME ( COMPLETED). Expected Outcomes/Goals Expected Outcomes/Goals 1. PO INTAKE TO MEET > 75% OF NUTRITIONAL NEEDS. 2. MONITOR PO INTAKE, WT, NUTRITION RELATED LABS AND SKIN INTEGRITY. 3. NUTRITION RELATED LABS TO TREND WNL IN 3-5 DAYS. 4. F/U MODERATE RISK IN 3-5 DAYS 05/05-05/07
[2019-05-06] MEDS: Insulin Glargine 100 units/ml 10ml Vial SUBQ SCH (21:05)
[2019-05-07] MEDS: Pantoprazole 40 mg EC Tab PO SCH (06:53)
[2019-05-07] MEDS: INSULIN LISPRO SLIDING SCALE 100 UNITS/ML UNIT SUBQ SCH ×4 (09:07→22:42)
[2019-05-07] MEDS: Vitamin D3 2,000 IU SGL PO SCH (09:09)
[2019-05-07] MEDS: Enoxaparin 40 mg/0.4 mL 0.4mL Syr SUBQ SCH (09:13)
--- NOTE | 2019-05-07 15:08 | Infectious Disease Prog Note ---
Infectious Disease Subjective - Review of Systems Service Date: 05/07/19 Subjective: There is no new change, no fever. Infectious Disease Objective - Results Result Diagrams: 05/04/19 04:50 05/03/19 06:35 Recent Labs: Laboratory Last Values WBC 18.8 Th/cmm (4.8-10.8) H 05/04/19 04:50 RBC 4.53 Mil/cmm (4.30-5.70) 05/04/19 04:50 Hgb 14.2 gm/dL (12-16) 05/04/19 04:50 Hct 42.1 % (41.0-60) 05/04/19 04:50 MCV 92.9 fl (80-99) 05/04/19 04:50 MCH 31.3 pg (26.0-30.0) H 05/04/19 04:50 MCHC Differential 33.7 pg (28.0-36.0) 05/04/19 04:50 RDW 12.6 % (11.5-20.0) 05/04/19 04:50 Plt Count 270 Th/cmm (150-400) 05/04/19 04:50 MPV 8.1 fl 05/04/19 04:50 Add Manual Diff YES 05/04/19 04:50 Band Neutrophils % 2 % (0-10) 05/04/19 04:50 Neutrophils (Manual) 61 % (40-80) 05/04/19 04:50 Lymphocytes 26 % (20-50) 05/04/19 04:50 Monocytes 9 % (2-10) 05/04/19 04:50 Eosinophils 2 % (0-5) 05/04/19 04:50 Basophils 0 % (0-3) 05/03/19 06:35 Platelet Estimate ADEQUATE (NORMAL) 05/04/19 04:50 ESR 67 mm/hr (0-20) H 05/05/19 06:30 PT 10.8 SECONDS (9.5-11.5) 05/01/19 22:50 INR 1.04 (0.5-1.4) 05/01/19 22:50 PTT (Actin FS) 25.1 SECONDS (26.0-38.0) L 05/01/19 22:50 D-Dimer 781 ng/mL (100-400) H 05/01/19 22:50 Sodium 132 mEq/L (136-145) L 05/03/19 06:35 Potassium 4.0 mEq/L (3.5-5.1) 05/03/19 06:35 Chloride 98 mEq/L (98-107) 05/03/19 06:35 Carbon Dioxide 24.3 mEq/L (21.0-31.0) 05/03/19 06:35 Anion Gap 13.7 (7.0-16.0) 05/03/19 06:35 BUN 8 mg/dL (7-25) 05/03/19 06:35 Creatinine 0.7 mg/dL (0.7-1.3) 05/03/19 06:35 Est GFR ( Amer) > 60.0 ml/min (>90) 05/03/19 06:35 Est GFR (Non-Af Amer) > 60.0 ml/min 05/03/19 06:35 BUN/Creatinine Ratio 11.4 05/03/19 06:35 Glucose 231 mg/dL (70-105) H 05/03/19 06:35 POC Glucose 222 MG/DL (70 - 105) H 05/07/19 06:51 Whole Bld Lactic Acid 1.76 mmol/L (0.60-1.99) 05/01/19 22:50 Calcium 9.2 mg/dL (8.6-10.3) 05/03/19 06:35 Total Bilirubin 0.5 mg/dL (0.3-1.0) 05/03/19 06:35 AST 20 U/L (13-39) 05/03/19 06:35 ALT 27 U/L (7-52) 05/03/19 06:35 Alkaline Phosphatase 63 U/L (34-104) 05/03/19 06:35 Troponin I 0.02 ng/mL (0.01-0.05) 05/01/19 22:50 C-Reactive Protein 13.9 mg/dL (0.0-0.9) H 05/05/19 06:30 B-Natriuretic Peptide 100.0 pg/mL (5.0-100.0) 05/01/19 22:50 Total Protein 7.4 gm/dL (6.0-8.3) 05/03/19 06:35 Albumin 3.3 gm/dL (4.2-5.5) L 05/03/19 06:35 Globulin 4.1 gm/dL 05/03/19 06:35 Albumin/Globulin Ratio 0.8 (1.0-1.8) L 05/03/19 06:35 Triglycerides 97 mg/dL (<150) 05/01/19 22:50 Cholesterol 125 mg/dL (<200) 05/01/19 22:50 LDL Cholesterol Direct 69 mg/dL (75-193) L 05/01/19 22:50 HDL Cholesterol 46 mg/dL (23-92) 05/01/19 22:50 TSH 0.76 uIU/ml (0.34-5.60) 05/01/19 22:50 Urine Source CLEAN C 05/01/19 20:56 Urine Color YELLOW 05/01/19 20:56 Urine Clarity CLEAR (CLEAR) 05/01/19 20:56 Urine pH 6.5 (4.6 - 8.0) 05/01/19 20:56 Ur Specific [place] 1.010 (1.005-1.030) 05/01/19 20:56 Urine Protein NEGATIVE mg/dL (NEGATIVE) 05/01/19 20:56 Urine Glucose (UA) >=1000 mg/dL (NEGATIVE) H 05/01/19 20:56 Urine Ketones NEGATIVE mg/dL (NEGATIVE) 05/01/19 20:56 Urine Blood NEGATIVE (NEGATIVE) 05/01/19 20:56 Urine Nitrate NEGATIVE (NEGATIVE) 05/01/19 20:56 Urine Bilirubin NEGATIVE (NEGATIVE) 05/01/19 20:56 Urine Urobilinogen 1.0 E.U./dL (0.2 - 1.0) 05/01/19 20:56 Ur Leukocyte Esterase NEGATIVE (NEGATIVE) 05/01/19 20:56 Urine RBC NONE SEEN /hpf (0-5) 05/01/19 20:56 Urine WBC 0-2 /hpf (0-5) 05/01/19 20:56 Ur Epithelial Cells RARE /lpf (FEW) 05/01/19 20:56 Urine Bacteria OCCASIONAL /hpf (NONE SEEN) 05/01/19 20:56 Vancomycin Trough 12.0 ug/mL (5-10) H 05/06/19 16:02 Random Vancomycin 10.7 ug/mL (5.0-40.0) 05/05/19 15:03 Urine Opiates Screen NEGATIVE (NEGATIVE) 05/02/19 14:00 Urine Methadone Screen NEGATIVE (NEGATIVE) 05/02/19 14:00 Ur Barbiturates Screen NEGATIVE (NEGATIVE) 05/02/19 14:00 Ur Tricyclics Screen NEGATIVE (NEGATIVE) 05/02/19 14:00 Ur Phencyclidine Scrn NEGATIVE (NEGATIVE) 05/02/19 14:00 Amphetamines Screen POSITIVE (NEGATIVE) H 05/02/19 14:00 U Methamphetamines Scrn NEGATIVE (NEGATIVE) 05/02/19 14:00 U Benzodiazepines Scrn NEGATIVE (NEGATIVE) 05/02/19 14:00 U Cocaine Metab Screen NEGATIVE (NEGATIVE) 05/02/19 14:00 U Cannabinoids Screen NEGATIVE (NEGATIVE) 05/02/19 14:00 RPR NONREACTIVE (NONREACTIVE) 05/01/19 22:50 - Physical Exam Vitals and I&O: Vital Signs Temp 98.2 F 05/07/19 12:00 Pulse 81 05/07/19 12:00 Resp 18 05/07/19 12:00 BP 139/75 05/07/19 12:00 Pulse Ox 96 05/07/19 12:00 Intake & Output 05/06/19 05/07/19 05/07/19 18:59 06:59 18:59 Intake Total 1450 450 Output Total 1025 Balance 425 450 Weight (lbs) 129.274 kg Intake: Intake, IV Amount 600 450 Piperacillin Sodium/ 100 200 Tazobact 4.5 gm In Sodium Chloride 0.9% 100 ml @ 100 mls/hr IV Q8HR [facility] Rx #:[id number] Vancomycin HCl 1 gm In 500 250 Sodium Chloride 0.9% 250 ml @ 165 mls/hr IV Q8H [facility] Rx#:[id number] Oral 850 Output: Urine 1025 Other: # Bowel Movements 0 Weight Source Bedscale Active Medications: Current Medications Acetaminophen (Tylenol) 650 mg PO Q4HR PRN PRN Reason: Pain or Fever >101 Stop: 07/01/19 01:28 Last Admin: 05/05/19 17:55 Dose: 650 mg Acetaminophen/Hydrocodone Bitart ([place] 5mg/325mg) 1 tab PO Q6H PRN PRN Reason: Severe Pain Stop: 07/03/19 11:51 Last Admin: 05/06/19 21:02 Dose: 1 tab Amlodipine Besylate (Norvasc) 10 mg PO DAILY [facility] Stop: 07/02/19 08:59 Last Admin: 05/07/19 09:09 Dose: 10 mg Enoxaparin Sodium (Lovenox) 40 mg SUBQ DAILY [facility] Stop: 07/01/19 08:59 Last Admin: 05/07/19 09:13 Dose: 40 mg Piperacillin Sod/Tazobactam (Sod 4.5 gm/ Sodium Chloride) 100 mls @ 100 mls/hr IV Q8HR [facility] Stop: 07/03/19 20:59 Last Admin: 05/07/19 12:35 Dose: 100 mls/hr Vancomycin HCl 1 gm/ Sodium (Chloride) 250 mls @ 165 mls/hr IV Q8H [facility] Stop: 07/04/19 16:59 Last Admin: 05/07/19 09:11 Dose: 165 mls/hr Insulin Glargine (Lantus Insulin) 34 units SUBQ HS [facility] Stop: 07/05/19 20:59 Last Admin: 05/06/19 21:05 Dose: 34 units Insulin Human Lispro (Humalog Insulin Sliding Scale) 0 units SUBQ [facility]; Protocol Stop: 07/01/19 07:29 Last Admin: 05/07/19 12:34 Dose: 5 units Lisinopril (Zestril) 5 mg PO DAILY [facility] Stop: 07/02/19 08:59 Last Admin: 05/06/19 10:25 Dose: 5 mg Loratadine (Claritin) 10 mg PO DAILY [facility] Stop: 07/02/19 08:59 Last Admin: 05/07/19 09:10 Dose: 10 mg Metformin HCl (Glucophage) 1,000 mg PO BIDWM [facility] Stop: 07/01/19 07:59 Last Admin: 05/07/19 09:08 Dose: 1,000 mg Metoprolol Tartrate (Lopressor) 100 mg PO DAILY [facility] Stop: 07/02/19 08:59 Last Admin: 05/07/19 10:15 Dose: Not Given Miscellaneous (Vancomycin Iv Per Pharmacy) 1 ea MC PRN [facility] Stop: 07/03/19 14:29 Miscellaneous (Probiotic Screen) 1 ea PRN PRN PRN Reason: PROTOCOL Stop: 09/10/19 14:53 Montelukast Sodium (Singulair) 10 mg PO HS [facility] Stop: 07/02/19 20:59 Last Admin: 05/06/19 21:02 Dose: 10 mg Mupirocin (Bactroban Oint) 1 appl TP BID [facility] Stop: 07/02/19 08:59 Last Admin: 05/07/19 09:00 Dose: 1 appl Pantoprazole Sodium (Protonix) 40 mg PO QDAC [facility] Stop: 07/02/19 07:29 Last Admin: 05/07/19 06:53 Dose: 40 mg Simvastatin (Zocor) 20 mg PO HS [facility]; Protocol Stop: 07/02/19 20:59 Last Admin: 05/06/19 21:02 Dose: 20 mg Tramadol HCl (Ultram) 50 mg PO Q6HR PRN PRN Reason: Pain (Moderate) Stop: 07/01/19 21:28 Last Admin: 05/04/19 14:02 Dose: 50 mg Vitamin D (Vitamin D3) 2,000 iu PO DAILY [facility] Stop: 07/02/19 08:59 Last Admin: 05/07/19 09:09 Dose: 2,000 iu General: no acute distress, well developed, well nourished HEENT: atraumatic, normocephalic, PERRLA, EOMI Neck: supple, no thyromegaly Cardiovascular: S1S2, regular Lungs: clear to auscultation bilaterally, clear to percussion Abdomen: soft, bowel sounds, no tender, no rebound Extremities: other (right foot swelling and erythema.), no cyanosis, no clubbing , no edema Neurological: awake, alert, oriented Infectious Disease Assmt/Plan - Assessment Assessment: 1. Leukocytosis, suspect sepsis. Blood cultures are negative so far. 2. Right foot abscess, cellulitis, may have osteomyelitis. 3. Diabetes mellitus type 1. 4. Left foot callus. 5. Ventral hernia or umbilical hernia. 6. Abdominal wall wound without any sign of infection. 7. Obesity. - Plan Plan: MRI. Vanco IV and Zosyn, Nutritional Asmnt/Malnutr-PDOC - Dietary Evaluation Malnutrition Findings (Please click <Entered> for more info): Nutritional Asmnt/Malnutrition Start: 05/02/19 14: 21 Text: Status: Complete Freq: Protocol: Document 05/02/19 14:21 ROSIE (Rec: 05/02/19 14:28 AMANDABERTELZA [id number]) Nutritional Asmnt/Malnutrition Patient General Information Nutritional Screening High Risk Diagnosis CELLULITIS LOWER EXTREMITIES, DIABETES Pertinent Medical Hx/Surgical Hx DM, HEART DISEASE, HTN, OBESITY Subjective Information IA, HIGH RISK, CONSULT: DIABETIC, UNCONTROLLED PT DOWNGRADED TO MODERATE RISK PT IS A 53 YEAR OLD MALE ADMITTED ON 05/02 C/O SWOLEN FEET AND LEGS WITH FEVER. PT HAS HAD DIFFICULTY WALKING LATELY. SPOKE WITH UT AT BEDSIDE AFTER LUNCH. PT WAS PLEASANT AND STATED HE ENJOYED BREAKFAST AND LUNCH, EATING 100%. DISCUSSED PT ROUTINE AT HOME CONCERNING DM CARE AND MANAGEMENT. PT STATED HE EATS OUT, DOES NOT COOK. PROVIDED PT WITH EDUCATION MATERIALS AND DISCUSSED HEALTHIER CHOICES WHEN EATING OUT TO MANAGE HID DM. PT WAS ACCEPTING OF THE INFORMATION AND VERBALIZED UNDERSTANDING. PT WAS NOT INTERESTED IN ANY OUTPATIENT DM EDUCATION/ COUNSELING. HT: 61 WT: 280 LB (127.27 KG) ABW: 218 LB (99.10) BMI: 36.94 (OBESE, CLASS II) GI: WNL, SOFT, LARGE, NON- TENDER BM: NOT NOTED I/O: 100/NOT NOTED SKIN: WARM, DRY, ELASTIC, FAIZAN LOWER EXTREMITIES REDENNED WITH PAIN AND SWELLING WOUND: ABD OPEN SCAB, RT FOOT 5TH TOE WOUND ANDREA: 22 DIET ORDER: [facility] ESTIMATED ENERGY NEEDS: (OBESE II, ABW) [id number] KCALS (20-25 KCALS/ KG) 79-89G PRO (0.8-0.9 G/KG) 3400-4000ML (35-40 ML/KG) Current Diet Order/ Nutrition Support [facility] Pertinent Medications INS-SS, GLUCOPHAGE Pertinent Labs 05/02: NA 134, GLUCOSE 229, ALB 3.2 POC GLUCOSE (LAST 24 HOURS): 262,296,236 Nutritional Hx/Data Height 1.85 m Height (Calculated Centimeters) 185.4 Current Weight (lbs) 127.006 kg Weight (Calculated Kilograms) 127.0 Weight (Calculated Grams) 982249.9 [place] Body Weight 184 LB % [place] Body Weight 152 Body Mass Index (BMI) 36.9 Weight Status Obese GI Symptoms GI Symptoms None Last BM NOT NOTED Usual diet at home REGULAR Skin Integrity/Comment: SKIN: WARM, DRY, ELASTIC, FAIZAN LOWER EXTREMITIES REDENNED WITH PAIN AND SWELLING WOUND: ABD OPEN SCAB, RT FOOT 5TH TOE WOUND ANDREA: 22 Current %PO Good (75-100%) Estimated Nutritional Goals BEE in Kcals: Adj wt of IBW Calories/Kcals/Kg 20-25 Kcals Calculated Protein: Adj wt of IBW Protein g/k.8-0.9 Protein Calculated 79-89 GM Fluid: ml 3400-4000ML (35-40 ML/KG) Nutritional Problem 3. Problem Problem LIMITED ADHERENCE TO NUTRITION -RELATED RECOMMENDATIONS Etiology R/T DM Signs/Symptoms: AEB PT SELF REPORT OF NOT FOLLOWING ANY DIET EVEN THOUGH HE HAS HAD DM EEUCATION PREVIOUSLY 2. Problem Problem OBESITY Etiology R/T EXCESSIVE ENERGY INTAKE Signs/Symptoms: AEB BMI 36.94 AND PT SELF REPORT OF EATING A LOT OF FAST FOOD 1. Problem Problem ALTERED NUTRITION RELATED LAB Etiology R/T ENDOCRINE DYSFUNCTION Signs/Symptoms: AEB HX DM AND GLUCOSE 229-296 Malnutrition Related to Morbid Obesity Malnutrition related to morbid obesity No Intervention/Recommendation Comments 1. CONTINUE WITH [facility] DIET ORDERED. 2. CONTINUE ANTIHYPERGLYCEMIC MEDICATIONS PER MD ORDER. 3. PROVIDE PT WITH DM EDUCATION AND EDUCATION MATERIALS TO TAKE HOME ( COMPLETED). Expected Outcomes/Goals Expected Outcomes/Goals 1. PO INTAKE TO MEET > 75% OF NUTRITIONAL NEEDS. 2. MONITOR PO INTAKE, WT, NUTRITION RELATED LABS AND SKIN INTEGRITY. 3. NUTRITION RELATED LABS TO TREND WNL IN 3-5 DAYS. 4. F/U MODERATE RISK IN 3-5 DAYS 05/05-05/07
[2019-05-07 15:24] LABS: HEMATOCRIT 41.3 % (41.0-60); HEMOGLOBIN 13.5 gm/dL (12-16); MEAN CELL VOLUME 94.2 fl (80-99); MEAN CORPUSCULAR HEMOGLOBIN 30.9 pg (26.0-30.0); MEAN CORPUSCULAR HGB CONC 32.7 pg (28.0-36.0); PLATELET COUNT 331 Th/cmm (150-400); RED BLOOD COUNT 4.38 Mil/cmm (4.30-5.70); RED CELL DISTRIBUTION WIDTH 12.3 % (11.5-20.0)
[2019-05-07 15:44] LABS: ALB/GLOB RATIO 0.7 (1.0-1.8); ALBUMIN 3.2 gm/dL (4.2-5.5); ALKALINE PHOSPHATASE 62 U/L (34-104); ANION GAP 13.3 (7.0-16.0); BILIRUBIN,TOTAL 0.4 mg/dL (0.3-1.0); BUN - UREA NITROGEN 11 mg/dL (7-25); CALCIUM SERUM 9.2 mg/dL (8.6-10.3); CARBON DIOXIDE 25.4 mEq/L (21.0-31.0); CHLORIDE 98 mEq/L (98-107); CREATININE - SERUM 0.8 mg/dL (0.7-1.3); GFR AFRICAN-AMERICAN > 60.0 ml/min (>90); GFR NON AFRICAN-AMERICAN > 60.0 ml/min; GLUCOSE 195 mg/dL (70-105); POTASSIUM SERUM 3.7 mEq/L (3.5-5.1); SGOT 25 U/L (13-39); SGPT/ALT 24 U/L (7-52); SODIUM SERUM 133 mEq/L (136-145); TOTAL PROTEIN,SERUM 7.7 gm/dL (6.0-8.3)
[2019-05-07 15:59] LABS: NEUTROPHILS 70 % (40-80)
[2019-05-07 16:00] LABS: BAND NEUTROPHILE 2 % (0-10); BASOPHIL 1 % (0-3); EOSINOPHIL 5 % (0-5); LYMPHOCYTE 19 % (20-50); MONOCYTE 3 % (2-10)
[2019-05-07 16:01] LABS: PLATELET ESTIMATE ADEQUATE (NORMAL)
--- NOTE | 2019-05-07 21:22 | Internal Medicine Prog Note ---
Internal Medicine Subjective - Subjective Service Date: 05/07/19 Patient seen and examined:: without staff (HE STILL HAS PAIN AT RT FOOT) Patient is:: awake, verbal, in bed, talking Per staff patient has:: no adverse event Internal Medicine Objective - Results Result Diagrams: 05/07/19 15:18 05/07/19 15:18 Recent Labs: Laboratory Last Values WBC 15.0 Th/cmm (4.8-10.8) H 05/07/19 15:18 RBC 4.38 Mil/cmm (4.30-5.70) 05/07/19 15:18 Hgb 13.5 gm/dL (12-16) 05/07/19 15:18 Hct 41.3 % (41.0-60) 05/07/19 15:18 MCV 94.2 fl (80-99) 05/07/19 15:18 MCH 30.9 pg (26.0-30.0) H 05/07/19 15:18 MCHC Differential 32.7 pg (28.0-36.0) 05/07/19 15:18 RDW 12.3 % (11.5-20.0) 05/07/19 15:18 Plt Count 331 Th/cmm (150-400) 05/07/19 15:18 MPV 7.2 fl 05/07/19 15:18 Add Manual Diff YES 05/07/19 15:18 Neutrophils % DRAMA DIRECTOR 05/07/19 15:18 Band Neutrophils % 2 % (0-10) 05/07/19 15:18 Lymphocytes % DRAMA DIRECTOR 05/07/19 15:18 Monocytes % DRAMA DIRECTOR 05/07/19 15:18 Eosinophils % DRAMA DIRECTOR 05/07/19 15:18 Basophils % DRAMA DIRECTOR 05/07/19 15:18 Neutrophils (Manual) 70 % (40-80) 05/07/19 15:18 Lymphocytes 19 % (20-50) L 05/07/19 15:18 Monocytes 3 % (2-10) 05/07/19 15:18 Eosinophils 5 % (0-5) 05/07/19 15:18 Basophils 1 % (0-3) 05/07/19 15:18 Platelet Estimate ADEQUATE (NORMAL) 05/07/19 15:18 ESR 67 mm/hr (0-20) H 05/05/19 06:30 PT 10.8 SECONDS (9.5-11.5) 05/01/19 22:50 INR 1.04 (0.5-1.4) 05/01/19 22:50 PTT (Actin FS) 25.1 SECONDS (26.0-38.0) L 05/01/19 22:50 D-Dimer 781 ng/mL (100-400) H 05/01/19 22:50 Sodium 133 mEq/L (136-145) L 05/07/19 15:18 Potassium 3.7 mEq/L (3.5-5.1) 05/07/19 15:18 Chloride 98 mEq/L (98-107) 05/07/19 15:18 Carbon Dioxide 25.4 mEq/L (21.0-31.0) 05/07/19 15:18 Anion Gap 13.3 (7.0-16.0) 05/07/19 15:18 BUN 11 mg/dL (7-25) 05/07/19 15:18 Creatinine 0.8 mg/dL (0.7-1.3) 05/07/19 15:18 Est GFR ( Amer) > 60.0 ml/min (>90) 05/07/19 15:18 Est GFR (Non-Af Amer) > 60.0 ml/min 05/07/19 15:18 BUN/Creatinine Ratio 13.8 05/07/19 15:18 Glucose 195 mg/dL (70-105) H 05/07/19 15:18 POC Glucose 222 MG/DL (70 - 105) H 05/07/19 06:51 Whole Bld Lactic Acid 1.76 mmol/L (0.60-1.99) 05/01/19 22:50 Calcium 9.2 mg/dL (8.6-10.3) 05/07/19 15:18 Total Bilirubin 0.4 mg/dL (0.3-1.0) 05/07/19 15:18 AST 25 U/L (13-39) 05/07/19 15:18 ALT 24 U/L (7-52) 05/07/19 15:18 Alkaline Phosphatase 62 U/L (34-104) 05/07/19 15:18 Troponin I 0.02 ng/mL (0.01-0.05) 05/01/19 22:50 C-Reactive Protein 13.9 mg/dL (0.0-0.9) H 05/05/19 06:30 B-Natriuretic Peptide 100.0 pg/mL (5.0-100.0) 05/01/19 22:50 Total Protein 7.7 gm/dL (6.0-8.3) 05/07/19 15:18 Albumin 3.2 gm/dL (4.2-5.5) L 05/07/19 15:18 Globulin 4.5 gm/dL 05/07/19 15:18 Albumin/Globulin Ratio 0.7 (1.0-1.8) L 05/07/19 15:18 Triglycerides 97 mg/dL (<150) 05/01/19 22:50 Cholesterol 125 mg/dL (<200) 05/01/19 22:50 LDL Cholesterol Direct 69 mg/dL (75-193) L 05/01/19 22:50 HDL Cholesterol 46 mg/dL (23-92) 05/01/19 22:50 TSH 0.76 uIU/ml (0.34-5.60) 05/01/19 22:50 Urine Source CLEAN C 05/01/19 20:56 Urine Color YELLOW 05/01/19 20:56 Urine Clarity CLEAR (CLEAR) 05/01/19 20:56 Urine pH 6.5 (4.6 - 8.0) 05/01/19 20:56 Ur Specific [place] 1.010 (1.005-1.030) 05/01/19 20:56 Urine Protein NEGATIVE mg/dL (NEGATIVE) 05/01/19 20:56 Urine Glucose (UA) >=1000 mg/dL (NEGATIVE) H 05/01/19 20:56 Urine Ketones NEGATIVE mg/dL (NEGATIVE) 05/01/19 20:56 Urine Blood NEGATIVE (NEGATIVE) 05/01/19 20:56 Urine Nitrate NEGATIVE (NEGATIVE) 05/01/19 20:56 Urine Bilirubin NEGATIVE (NEGATIVE) 05/01/19 20:56 Urine Urobilinogen 1.0 E.U./dL (0.2 - 1.0) 05/01/19 20:56 Ur Leukocyte Esterase NEGATIVE (NEGATIVE) 05/01/19 20:56 Urine RBC NONE SEEN /hpf (0-5) 05/01/19 20:56 Urine WBC 0-2 /hpf (0-5) 05/01/19 20:56 Ur Epithelial Cells RARE /lpf (FEW) 05/01/19 20:56 Urine Bacteria OCCASIONAL /hpf (NONE SEEN) 05/01/19 20:56 Vancomycin Trough 12.0 ug/mL (5-10) H 05/06/19 16:02 Random Vancomycin 10.7 ug/mL (5.0-40.0) 05/05/19 15:03 Urine Opiates Screen NEGATIVE (NEGATIVE) 05/02/19 14:00 Urine Methadone Screen NEGATIVE (NEGATIVE) 05/02/19 14:00 Ur Barbiturates Screen NEGATIVE (NEGATIVE) 05/02/19 14:00 Ur Tricyclics Screen NEGATIVE (NEGATIVE) 05/02/19 14:00 Ur Phencyclidine Scrn NEGATIVE (NEGATIVE) 05/02/19 14:00 Amphetamines Screen POSITIVE (NEGATIVE) H 05/02/19 14:00 U Methamphetamines Scrn NEGATIVE (NEGATIVE) 05/02/19 14:00 U Benzodiazepines Scrn NEGATIVE (NEGATIVE) 05/02/19 14:00 U Cocaine Metab Screen NEGATIVE (NEGATIVE) 05/02/19 14:00 U Cannabinoids Screen NEGATIVE (NEGATIVE) 05/02/19 14:00 RPR NONREACTIVE (NONREACTIVE) 05/01/19 22:50 - Physical Exam Vitals and I&O: Vital Signs Temp 97.9 F 05/07/19 16:00 Pulse 84 05/07/19 16:00 Resp 18 05/07/19 16:00 BP 136/80 05/07/19 16:00 Pulse Ox 93 05/07/19 16:00 Intake & Output 05/07/19 05/07/19 05/08/19 06:59 18:59 06:59 Intake Total 450 950 Balance 450 950 Weight (lbs) 129.274 kg Intake: Intake, IV Amount 450 350 Piperacillin Sodium/ 200 100 Tazobact 4.5 gm In Sodium Chloride 0.9% 100 ml @ 100 mls/hr IV Q8HR [facility] Rx #:[id number] Vancomycin HCl 1 gm In 250 250 Sodium Chloride 0.9% 250 ml @ 165 mls/hr IV Q8H [facility] Rx#:[id number] Oral 600 Other: # Voids 3 # Bowel Movements 0 Weight Source Bedscale Active Medications: Current Medications Acetaminophen (Tylenol) 650 mg PO Q4HR PRN PRN Reason: Pain or Fever >101 Stop: 07/01/19 01:28 Last Admin: 05/05/19 17:55 Dose: 650 mg Acetaminophen/Hydrocodone Bitart ([place] 5mg/325mg) 1 tab PO Q6H PRN PRN Reason: Severe Pain Stop: 07/03/19 11:51 Last Admin: 05/06/19 21:02 Dose: 1 tab Amlodipine Besylate (Norvasc) 10 mg PO DAILY [facility] Stop: 07/02/19 08:59 Last Admin: 05/07/19 09:09 Dose: 10 mg Enoxaparin Sodium (Lovenox) 40 mg SUBQ DAILY [facility] Stop: 07/01/19 08:59 Last Admin: 05/07/19 09:13 Dose: 40 mg Piperacillin Sod/Tazobactam (Sod 4.5 gm/ Sodium Chloride) 100 mls @ 100 mls/hr IV Q8HR [facility] Stop: 07/03/19 20:59 Last Admin: 05/07/19 21:09 Dose: 100 mls/hr Vancomycin HCl 1 gm/ Sodium (Chloride) 250 mls @ 165 mls/hr IV Q8H [facility] Stop: 07/04/19 16:59 Last Admin: 05/07/19 17:14 Dose: 165 mls/hr Insulin Glargine (Lantus Insulin) 34 units SUBQ HS [facility] Stop: 07/05/19 20:59 Last Admin: 05/06/19 21:05 Dose: 34 units Insulin Human Lispro (Humalog Insulin Sliding Scale) 0 units SUBQ [facility]; Protocol Stop: 07/01/19 07:29 Last Admin: 05/07/19 17:19 Dose: 3 units Lisinopril (Zestril) 5 mg PO DAILY [facility] Stop: 07/02/19 08:59 Last Admin: 05/06/19 10:25 Dose: 5 mg Loratadine (Claritin) 10 mg PO DAILY [facility] Stop: 07/02/19 08:59 Last Admin: 05/07/19 09:10 Dose: 10 mg Metformin HCl (Glucophage) 1,000 mg PO BIDWM [facility] Stop: 07/01/19 07:59 Last Admin: 05/07/19 17:13 Dose: 1,000 mg Metoprolol Tartrate (Lopressor) 100 mg PO DAILY [facility] Stop: 07/02/19 08:59 Last Admin: 05/07/19 10:15 Dose: Not Given Miscellaneous (Vancomycin Iv Per Pharmacy) 1 ea MC PRN [facility] Stop: 07/03/19 14:29 Miscellaneous (Probiotic Screen) 1 ea MC PRN PRN PRN Reason: PROTOCOL Stop: 07/04/19 14:53 Montelukast Sodium (Singulair) 10 mg PO HS [facility] Stop: 07/02/19 20:59 Last Admin: 05/07/19 21:08 Dose: 10 mg Mupirocin (Bactroban Oint) 1 appl TP BID [facility] Stop: 07/02/19 08:59 Last Admin: 05/07/19 17:14 Dose: 1 appl Pantoprazole Sodium (Protonix) 40 mg PO QDAC [facility] Stop: 07/02/19 07:29 Last Admin: 05/07/19 06:53 Dose: 40 mg Simvastatin (Zocor) 20 mg PO HS [facility]; Protocol Stop: 07/02/19 20:59 Last Admin: 05/07/19 21:08 Dose: 20 mg Tramadol HCl (Ultram) 50 mg PO Q6HR PRN PRN Reason: Pain (Moderate) Stop: 07/01/19 21:28 Last Admin: 05/07/19 19:41 Dose: 50 mg Vitamin D (Vitamin D3) 2,000 iu PO DAILY [facility] Stop: 07/02/19 08:59 Last Admin: 05/07/19 09:09 Dose: 2,000 iu General: alert HEENT: NC/AT, PERRLA, EOMI, anicteric sclerae, throat clear Neck: Supple, No JVD, No thyromegaly, +2 carotid pulse wo bruit, No LAD Lungs: CTAB Cardiovascular: RRR, Normal S1, Normal S2, without murmur Abdomen: soft, non-tender, non-distended Extremities: clear, rash, other (THERE IS A LUMP ON BACK OF HIS LEFT CULF AREA) Neurological: no change Internal Medicine Assmt/Plan - Assessment Assessment: 1.CELLULITIS OF RT FOOT. 2.IDDM 3.SEPSIS 4.POSSIBLE OSTEOMYELITIS OF RT FOOT. - Plan Plan: CONTINUE ON CURRENT MEDICATION AND DIET. Nutritional Asmnt/Malnutr-PDOC - Dietary Evaluation Malnutrition Findings (Please click <Entered> for more info): Nutritional Asmnt/Malnutrition Start: 05/02/19 14: 21 Text: Status: Complete Freq: Protocol: Document 05/02/19 14:21 ROSIE (Rec: 05/02/19 14:28 ROSIE [id number]) Nutritional Asmnt/Malnutrition Patient General Information Nutritional Screening High Risk Diagnosis CELLULITIS LOWER EXTREMITIES, DIABETES Pertinent Medical Hx/Surgical Hx DM, HEART DISEASE, HTN, OBESITY Subjective Information IA, HIGH RISK, CONSULT: DIABETIC, UNCONTROLLED PT DOWNGRADED TO MODERATE RISK PT IS A 53 YEAR OLD MALE ADMITTED ON 05/02 C/O SWOLEN FEET AND LEGS WITH FEVER. PT HAS HAD DIFFICULTY WALKING LATELY. SPOKE WITH IL AT BEDSIDE AFTER LUNCH. PT WAS PLEASANT AND STATED HE ENJOYED BREAKFAST AND LUNCH, EATING 100%. DISCUSSED PT ROUTINE AT HOME CONCERNING DM CARE AND MANAGEMENT. PT STATED HE EATS OUT, DOES NOT COOK. PROVIDED PT WITH EDUCATION MATERIALS AND DISCUSSED HEALTHIER CHOICES WHEN EATING OUT TO MANAGE HID DM. PT WAS ACCEPTING OF THE INFORMATION AND VERBALIZED UNDERSTANDING. PT WAS NOT INTERESTED IN ANY OUTPATIENT DM EDUCATION/ COUNSELING. HT: 61 WT: 280 LB (127.27 KG) ABW: 218 LB (99.10) BMI: 36.94 (OBESE, CLASS II) GI: WNL, SOFT, LARGE, NON- TENDER BM: NOT NOTED I/O: 100/NOT NOTED SKIN: WARM, DRY, ELASTIC, FAIZAN LOWER EXTREMITIES REDENNED WITH PAIN AND SWELLING WOUND: ABD OPEN SCAB, RT FOOT 5TH TOE WOUND ANDREA: 22 DIET ORDER: [facility] 45 ESTIMATED ENERGY NEEDS: (OBESE II, ABW) 8877-6017 KCALS (20-25 KCALS/ KG) 79-89G PRO (0.8-0.9 G/KG) 3400-4000ML (35-40 ML/KG) Current Diet Order/ Nutrition Support [facility] 45GM Pertinent Medications INS-SS, GLUCOPHAGE Pertinent Labs 05/02: NA 134, GLUCOSE 229, ALB 3.2 POC GLUCOSE (LAST 24 HOURS): 262,296,236 Nutritional Hx/Data Height 1.85 m Height (Calculated Centimeters) 185.4 Current Weight (lbs) 127.006 kg Weight (Calculated Kilograms) 127.0 Weight (Calculated Grams) 882312.9 [place] Body Weight 184 LB % [place] Body Weight 152 Body Mass Index (BMI) 36.9 Weight Status Obese GI Symptoms GI Symptoms None Last BM NOT NOTED Usual diet at home REGULAR Skin Integrity/Comment: SKIN: WARM, DRY, ELASTIC, FAIZAN LOWER EXTREMITIES REDENNED WITH PAIN AND SWELLING WOUND: ABD OPEN SCAB, RT FOOT 5TH TOE WOUND ANDREA: 22 Current %PO Good (75-100%) Estimated Nutritional Goals BEE in Kcals: Adj wt of IBW Calories/Kcals/Kg 20-25 Kcals Calculated 5634-8216 Protein: Adj wt of IBW Protein g/k.8-0.9 Protein Calculated 79-89 GM Fluid: ml 3400-4000ML (35-40 ML/KG) Nutritional Problem 3. Problem Problem LIMITED ADHERENCE TO NUTRITION -RELATED RECOMMENDATIONS Etiology R/T DM Signs/Symptoms: AEB PT SELF REPORT OF NOT FOLLOWING ANY DIET EVEN THOUGH HE HAS HAD DM EEUCATION PREVIOUSLY 2. Problem Problem OBESITY Etiology R/T EXCESSIVE ENERGY INTAKE Signs/Symptoms: AEB BMI 36.94 AND PT SELF REPORT OF EATING A LOT OF FAST FOOD 1. Problem Problem ALTERED NUTRITION RELATED LAB Etiology R/T ENDOCRINE DYSFUNCTION Signs/Symptoms: AEB HX DM AND GLUCOSE 229-296 Malnutrition Related to Morbid Obesity Malnutrition related to morbid obesity No Intervention/Recommendation Comments 1. CONTINUE WITH [facility] 45GM DIET ORDERED. 2. CONTINUE ANTIHYPERGLYCEMIC MEDICATIONS PER MD ORDER. 3. PROVIDE PT WITH DM EDUCATION AND EDUCATION MATERIALS TO TAKE HOME ( COMPLETED). Expected Outcomes/Goals Expected Outcomes/Goals 1. PO INTAKE TO MEET > 75% OF NUTRITIONAL NEEDS. 2. MONITOR PO INTAKE, WT, NUTRITION RELATED LABS AND SKIN INTEGRITY. 3. NUTRITION RELATED LABS TO TREND WNL IN 3-5 DAYS. 4. F/U MODERATE RISK IN 3-5 DAYS 05/05-05/07
[2019-05-07] MEDS: Insulin Glargine 100 units/ml 10ml Vial SUBQ SCH (22:40)
[2019-05-08] MEDS: Hydrocodone/APAP 5mg/325mg Tab PO PRN ×2 (00:18→19:16)
[2019-05-08] MEDS: INSULIN LISPRO SLIDING SCALE 100 UNITS/ML UNIT SUBQ SCH ×4 (07:45→20:43)
[2019-05-08] MEDS: Pantoprazole 40 mg EC Tab PO SCH (08:11)
[2019-05-08] MEDS: Enoxaparin 40 mg/0.4 mL 0.4mL Syr SUBQ SCH (08:11)
[2019-05-08] MEDS: Vitamin D3 2,000 IU SGL PO SCH (08:11)
--- NOTE | 2019-05-08 10:56 | Diagnostic Imaging Report ---
Right foot (3 views) HISTORY: Pain, swelling Soft tissue swelling noted over the phalangeal region. There is mild deformity about the bases of the second, third, and fourth proximal phalanges which appears chronic. Findings may be associated with old trauma. No acute abnormalities. No fractures. No plain radiographic evidence of osteomyelitis. Periosteal reaction noted along the distal fibula which also appears chronic. Vascular calcification seen. IMPRESSION: 1. Chronic bony changes as noted above. 2. Soft tissue swelling 3. No acute bony abnormalities. In view of the inconclusive findings noted on the radionuclide bone scan of 05/05/2019, an MRI exam would provide for further assessment of early osteomyelitis.
--- NOTE | 2019-05-08 17:53 | Internal Medicine Prog Note ---
Internal Medicine Subjective - Subjective Service Date: 05/08/19 Patient seen and examined:: without staff (HE FEELS BETTER,LESS PAIN.HE HAD MRI OF THE RT FOOT) Patient is:: awake, verbal, in bed, talking Per staff patient has:: no adverse event Internal Medicine Objective - Results Result Diagrams: 05/07/19 15:18 05/07/19 15:18 Recent Labs: Laboratory Last Values WBC 15.0 Th/cmm (4.8-10.8) H 05/07/19 15:18 RBC 4.38 Mil/cmm (4.30-5.70) 05/07/19 15:18 Hgb 13.5 gm/dL (12-16) 05/07/19 15:18 Hct 41.3 % (41.0-60) 05/07/19 15:18 MCV 94.2 fl (80-99) 05/07/19 15:18 MCH 30.9 pg (26.0-30.0) H 05/07/19 15:18 MCHC Differential 32.7 pg (28.0-36.0) 05/07/19 15:18 RDW 12.3 % (11.5-20.0) 05/07/19 15:18 Plt Count 331 Th/cmm (150-400) 05/07/19 15:18 MPV 7.2 fl 05/07/19 15:18 Add Manual Diff YES 05/07/19 15:18 Neutrophils % TRAUMA THERAPIST 05/07/19 15:18 Band Neutrophils % 2 % (0-10) 05/07/19 15:18 Lymphocytes % TRAUMA THERAPIST 05/07/19 15:18 Monocytes % TRAUMA THERAPIST 05/07/19 15:18 Eosinophils % TRAUMA THERAPIST 05/07/19 15:18 Basophils % TRAUMA THERAPIST 05/07/19 15:18 Neutrophils (Manual) 70 % (40-80) 05/07/19 15:18 Lymphocytes 19 % (20-50) L 05/07/19 15:18 Monocytes 3 % (2-10) 05/07/19 15:18 Eosinophils 5 % (0-5) 05/07/19 15:18 Basophils 1 % (0-3) 05/07/19 15:18 Platelet Estimate ADEQUATE (NORMAL) 05/07/19 15:18 ESR 67 mm/hr (0-20) H 05/05/19 06:30 PT 10.8 SECONDS (9.5-11.5) 05/01/19 22:50 INR 1.04 (0.5-1.4) 05/01/19 22:50 PTT (Actin FS) 25.1 SECONDS (26.0-38.0) L 05/01/19 22:50 D-Dimer 781 ng/mL (100-400) H 05/01/19 22:50 Sodium 133 mEq/L (136-145) L 05/07/19 15:18 Potassium 3.7 mEq/L (3.5-5.1) 05/07/19 15:18 Chloride 98 mEq/L (98-107) 05/07/19 15:18 Carbon Dioxide 25.4 mEq/L (21.0-31.0) 05/07/19 15:18 Anion Gap 13.3 (7.0-16.0) 05/07/19 15:18 BUN 11 mg/dL (7-25) 05/07/19 15:18 Creatinine 0.8 mg/dL (0.7-1.3) 05/07/19 15:18 Est GFR ( Amer) > 60.0 ml/min (>90) 05/07/19 15:18 Est GFR (Non-Af Amer) > 60.0 ml/min 05/07/19 15:18 BUN/Creatinine Ratio 13.8 05/07/19 15:18 Glucose 195 mg/dL (70-105) H 05/07/19 15:18 POC Glucose 157 MG/DL (70 - 105) H 05/08/19 16:46 Whole Bld Lactic Acid 1.76 mmol/L (0.60-1.99) 05/01/19 22:50 Calcium 9.2 mg/dL (8.6-10.3) 05/07/19 15:18 Total Bilirubin 0.4 mg/dL (0.3-1.0) 05/07/19 15:18 AST 25 U/L (13-39) 05/07/19 15:18 ALT 24 U/L (7-52) 05/07/19 15:18 Alkaline Phosphatase 62 U/L (34-104) 05/07/19 15:18 Troponin I 0.02 ng/mL (0.01-0.05) 05/01/19 22:50 C-Reactive Protein 13.9 mg/dL (0.0-0.9) H 05/05/19 06:30 B-Natriuretic Peptide 100.0 pg/mL (5.0-100.0) 05/01/19 22:50 Total Protein 7.7 gm/dL (6.0-8.3) 05/07/19 15:18 Albumin 3.2 gm/dL (4.2-5.5) L 05/07/19 15:18 Globulin 4.5 gm/dL 05/07/19 15:18 Albumin/Globulin Ratio 0.7 (1.0-1.8) L 05/07/19 15:18 Triglycerides 97 mg/dL (<150) 05/01/19 22:50 Cholesterol 125 mg/dL (<200) 05/01/19 22:50 LDL Cholesterol Direct 69 mg/dL (75-193) L 05/01/19 22:50 HDL Cholesterol 46 mg/dL (23-92) 05/01/19 22:50 TSH 0.76 uIU/ml (0.34-5.60) 05/01/19 22:50 Urine Source CLEAN C 05/01/19 20:56 Urine Color YELLOW 05/01/19 20:56 Urine Clarity CLEAR (CLEAR) 05/01/19 20:56 Urine pH 6.5 (4.6 - 8.0) 05/01/19 20:56 Ur Specific [place] 1.010 (1.005-1.030) 05/01/19 20:56 Urine Protein NEGATIVE mg/dL (NEGATIVE) 05/01/19 20:56 Urine Glucose (UA) >=1000 mg/dL (NEGATIVE) H 05/01/19 20:56 Urine Ketones NEGATIVE mg/dL (NEGATIVE) 05/01/19 20:56 Urine Blood NEGATIVE (NEGATIVE) 05/01/19 20:56 Urine Nitrate NEGATIVE (NEGATIVE) 05/01/19 20:56 Urine Bilirubin NEGATIVE (NEGATIVE) 05/01/19 20:56 Urine Urobilinogen 1.0 E.U./dL (0.2 - 1.0) 05/01/19 20:56 Ur Leukocyte Esterase NEGATIVE (NEGATIVE) 05/01/19 20:56 Urine RBC NONE SEEN /hpf (0-5) 05/01/19 20:56 Urine WBC 0-2 /hpf (0-5) 05/01/19 20:56 Ur Epithelial Cells RARE /lpf (FEW) 05/01/19 20:56 Urine Bacteria OCCASIONAL /hpf (NONE SEEN) 05/01/19 20:56 Vancomycin Trough 12.0 ug/mL (5-10) H 05/06/19 16:02 Random Vancomycin 10.7 ug/mL (5.0-40.0) 05/05/19 15:03 Urine Opiates Screen NEGATIVE (NEGATIVE) 05/02/19 14:00 Urine Methadone Screen NEGATIVE (NEGATIVE) 05/02/19 14:00 Ur Barbiturates Screen NEGATIVE (NEGATIVE) 05/02/19 14:00 Ur Tricyclics Screen NEGATIVE (NEGATIVE) 05/02/19 14:00 Ur Phencyclidine Scrn NEGATIVE (NEGATIVE) 05/02/19 14:00 Amphetamines Screen POSITIVE (NEGATIVE) H 05/02/19 14:00 U Methamphetamines Scrn NEGATIVE (NEGATIVE) 05/02/19 14:00 U Benzodiazepines Scrn NEGATIVE (NEGATIVE) 05/02/19 14:00 U Cocaine Metab Screen NEGATIVE (NEGATIVE) 05/02/19 14:00 U Cannabinoids Screen NEGATIVE (NEGATIVE) 05/02/19 14:00 RPR NONREACTIVE (NONREACTIVE) 05/01/19 22:50 - Physical Exam Vitals and I&O: Vital Signs Temp 97.6 F 05/08/19 15:58 Pulse 78 05/08/19 15:58 Resp 18 05/08/19 15:58 BP 110/62 05/08/19 15:58 Pulse Ox 97 05/08/19 15:58 Intake & Output 05/07/19 05/08/19 05/08/19 18:59 06:59 18:59 Intake Total 0336 673 4465 Output Total 1200 Balance 1200 -860 1150 Weight (lbs) 129.274 kg 129.274 kg 130.635 kg Intake: Intake, IV Amount 600 100 350 Piperacillin Sodium/ 100 100 100 Tazobact 4.5 gm In Sodium Chloride 0.9% 100 ml @ 100 mls/hr IV Q8HR SRIRAM Rx #:[id number] Vancomycin HCl 1 gm In 500 Sodium Chloride 0.9% 250 ml @ 165 mls/hr IV Q8H SRIRAM Rx#:[id number] Vancomycin HCl 1.25 gm In 250 Sodium Chloride 0.9% 250 ml @ 165 mls/hr IV Q8H [facility] Rx#:[id number] Oral 600 240 800 Output: Urine 1200 Other: # Voids 3 5 # Bowel Movements 0 1 1 Weight Source Bedscale Bedscale Bedscale Active Medications: Current Medications Acetaminophen (Tylenol) 650 mg PO Q4HR PRN PRN Reason: Pain or Fever >101 Stop: 07/01/19 01:28 Last Admin: 05/05/19 17:55 Dose: 650 mg Acetaminophen/Hydrocodone Bitart ([place] 5mg/325mg) 1 tab PO Q6H PRN PRN Reason: Severe Pain Stop: 07/03/19 11:51 Last Admin: 05/08/19 00:18 Dose: 1 tab Amlodipine Besylate (Norvasc) 10 mg PO DAILY [facility] Stop: 07/02/19 08:59 Last Admin: 05/08/19 08:12 Dose: 10 mg Enoxaparin Sodium (Lovenox) 40 mg SUBQ DAILY [facility] Stop: 07/01/19 08:59 Last Admin: 05/08/19 08:11 Dose: 40 mg Piperacillin Sod/Tazobactam (Sod 4.5 gm/ Sodium Chloride) 100 mls @ 100 mls/hr IV Q8HR [facility] Stop: 07/03/19 20:59 Last Admin: 05/08/19 14:33 Dose: 100 mls/hr Vancomycin HCl 1.25 gm/ Sodium (Chloride) 250 mls @ 165 mls/hr IV Q8H [facility] Stop: 07/07/19 08:59 Last Admin: 05/08/19 17:02 Dose: 165 mls/hr Insulin Glargine (Lantus Insulin) 34 units SUBQ HS [facility] Stop: 07/05/19 20:59 Last Admin: 05/07/19 22:40 Dose: 34 units Insulin Human Lispro (Humalog Insulin Sliding Scale) 0 units SUBQ [facility]; Protocol Stop: 07/01/19 07:29 Last Admin: 05/08/19 17:02 Dose: 3 units Lisinopril (Zestril) 5 mg PO DAILY [facility] Stop: 07/02/19 08:59 Last Admin: 05/08/19 08:11 Dose: 5 mg Loratadine (Claritin) 10 mg PO DAILY [facility] Stop: 07/02/19 08:59 Last Admin: 05/08/19 08:11 Dose: 10 mg Metformin HCl (Glucophage) 1,000 mg PO BIDWM SRIRAM Stop: 07/01/19 07:59 Last Admin: 05/08/19 17:02 Dose: 1,000 mg Metoprolol Tartrate (Lopressor) 100 mg PO DAILY [facility] Stop: 07/02/19 08:59 Last Admin: 05/08/19 08:12 Dose: 100 mg Miscellaneous (Vancomycin Iv Per Pharmacy) 1 ea PRN SRIRAM Stop: 07/03/19 14:29 Miscellaneous (Probiotic Screen) 1 ea PRN PRN PRN Reason: PROTOCOL Stop: 07/04/19 14:53 Montelukast Sodium (Singulair) 10 mg PO HS [facility] Stop: 07/02/19 20:59 Last Admin: 05/07/19 21:08 Dose: 10 mg Mupirocin (Bactroban Oint) 1 appl TP BID [facility] Stop: 07/02/19 08:59 Last Admin: 05/08/19 17:02 Dose: 1 appl Pantoprazole Sodium (Protonix) 40 mg PO QDAC SRIRAM Stop: 07/02/19 07:29 Last Admin: 05/08/19 08:11 Dose: 40 mg Simvastatin (Zocor) 20 mg PO HS [facility]; Protocol Stop: 07/02/19 20:59 Last Admin: 05/07/19 21:08 Dose: 20 mg Tramadol HCl (Ultram) 50 mg PO Q6HR PRN PRN Reason: Pain (Moderate) Stop: 07/01/19 21:28 Last Admin: 05/07/19 19:41 Dose: 50 mg Vitamin D (Vitamin D3) 2,000 iu PO DAILY [facility] Stop: 07/02/19 08:59 Last Admin: 05/08/19 08:11 Dose: 2,000 iu General: alert HEENT: NC/AT, PERRLA, EOMI, anicteric sclerae, throat clear Neck: Supple, No JVD, No thyromegaly, +2 carotid pulse wo bruit, No LAD Lungs: CTAB Cardiovascular: RRR, Normal S1, Normal S2, without murmur Abdomen: soft, non-tender, non-distended Extremities: clear, rash, other (THERE IS A LUMP ON BACK OF HIS LEFT CULF AREA) Neurological: no change Internal Medicine Assmt/Plan - Assessment Assessment: 1.CELLULITIS OF RT FOOT. 2.IDDM 3.SEPSIS 4.POSSIBLE OSTEOMYELITIS OF RT FOOT. - Plan Plan: CONTINUE ON CURRENT MEDICATION AND DIET. Nutritional Asmnt/Malnutr-PDOC - Dietary Evaluation Malnutrition Findings (Please click <Entered> for more info): Nutritional Asmnt/Malnutrition Start: 05/02/19 14: 21 Text: Status: Complete Freq: Protocol: Document 05/02/19 14:21 ROSIE (Rec: 05/02/19 14:28 ROSIE [id number]) Nutritional Asmnt/Malnutrition Patient General Information Nutritional Screening High Risk Diagnosis CELLULITIS LOWER EXTREMITIES, DIABETES Pertinent Medical Hx/Surgical Hx DM, HEART DISEASE, HTN, OBESITY Subjective Information IA, HIGH RISK, CONSULT: DIABETIC, UNCONTROLLED PT DOWNGRADED TO MODERATE RISK PT IS A 53 YEAR OLD MALE ADMITTED ON 05/02 C/O SWOLEN FEET AND LEGS WITH FEVER. PT HAS HAD DIFFICULTY WALKING LATELY. SPOKE WITH MA AT BEDSIDE AFTER LUNCH. PT WAS PLEASANT AND STATED HE ENJOYED BREAKFAST AND LUNCH, EATING 100%. DISCUSSED PT ROUTINE AT HOME CONCERNING DM CARE AND MANAGEMENT. PT STATED HE EATS OUT, DOES NOT COOK. PROVIDED PT WITH EDUCATION MATERIALS AND DISCUSSED HEALTHIER CHOICES WHEN EATING OUT TO MANAGE HID DM. PT WAS ACCEPTING OF THE INFORMATION AND VERBALIZED UNDERSTANDING. PT WAS NOT INTERESTED IN ANY OUTPATIENT DM EDUCATION/ COUNSELING. HT: 61 WT: 280 LB (127.27 KG) ABW: 218 LB (99.10) BMI: 36.94 (OBESE, CLASS II) GI: WNL, SOFT, LARGE, NON- TENDER BM: NOT NOTED I/O: 100/NOT NOTED SKIN: WARM, DRY, ELASTIC, FAIZAN LOWER EXTREMITIES REDENNED WITH PAIN AND SWELLING WOUND: ABD OPEN SCAB, RT FOOT 5TH TOE WOUND ANDREA: 22 [facility] ESTIMATED ENERGY NEEDS: (OBESE II, ABW) 4965-6642 KCALS (20-25 KCALS/ KG) 79-89G PRO (0.8-0.9 G/KG) 3400-4000ML (35-40 ML/KG) Current Diet Order/ Nutrition Support CCHO 45GM Pertinent Medications INS-SS, GLUCOPHAGE Pertinent Labs 05/02: NA 134, GLUCOSE 229, ALB 3.2 POC GLUCOSE (LAST 24 HOURS): 262,296,236 Nutritional Hx/Data Height 1.85 m Height (Calculated Centimeters) 185.4 Current Weight (lbs) 127.006 kg Weight (Calculated Kilograms) 127.0 Weight (Calculated Grams) 401205.9 [place] Body Weight 184 LB % [place] Body Weight 152 Body Mass Index (BMI) 36.9 Weight Status Obese GI Symptoms GI Symptoms None Last BM NOT NOTED Usual diet at home REGULAR Skin Integrity/Comment: SKIN: WARM, DRY, ELASTIC, FAIZAN LOWER EXTREMITIES REDENNED WITH PAIN AND SWELLING WOUND: ABD OPEN SCAB, RT FOOT 5TH TOE WOUND ANDREA: 22 Current %PO Good (75-100%) Estimated Nutritional Goals BEE in Kcals: Adj wt of IBW Calories/Kcals/Kg 20-25 Kcals Calculated Protein: Adj wt of IBW Protein g/k.8-0.9 Protein Calculated 79-89 GM Fluid: ml 3400-4000ML (35-40 ML/KG) Nutritional Problem 3. Problem Problem LIMITED ADHERENCE TO NUTRITION -RELATED RECOMMENDATIONS Etiology R/T DM Signs/Symptoms: AEB PT SELF REPORT OF NOT FOLLOWING ANY DIET EVEN THOUGH HE HAS HAD DM EEUCATION PREVIOUSLY 2. Problem Problem OBESITY Etiology R/T EXCESSIVE ENERGY INTAKE Signs/Symptoms: AEB BMI 36.94 AND PT SELF REPORT OF EATING A LOT OF FAST FOOD 1. Problem Problem ALTERED NUTRITION RELATED LAB Etiology R/T ENDOCRINE DYSFUNCTION Signs/Symptoms: AEB HX DM AND GLUCOSE 229-296 Malnutrition Related to Morbid Obesity Malnutrition related to morbid obesity No Intervention/Recommendation Comments 1. CONTINUE WITH [facility] 45GM DIET ORDERED. 2. CONTINUE ANTIHYPERGLYCEMIC MEDICATIONS PER MD ORDER. 3. PROVIDE PT WITH DM EDUCATION AND EDUCATION MATERIALS TO TAKE HOME ( COMPLETED). Expected Outcomes/Goals Expected Outcomes/Goals 1. PO INTAKE TO MEET > 75% OF NUTRITIONAL NEEDS. 2. MONITOR PO INTAKE, WT, NUTRITION RELATED LABS AND SKIN INTEGRITY. 3. NUTRITION RELATED LABS TO TREND WNL IN 3-5 DAYS. 4. F/U MODERATE RISK IN 3-5 DAYS 05/05-05/07
[2019-05-08] MEDS: Insulin Glargine 100 units/ml 10ml Vial SUBQ SCH (20:44)
[2019-05-09] MEDS: Pantoprazole 40 mg EC Tab PO SCH (06:44)
[2019-05-09 08:03] LABS: % BASOPHILS 0.1 % (0.0-2.0); % EOSINOPHILS 4.1 % (0.0-5.0); % LYMPHOCYTES 19.9 % (20.0-50.0); % MONOCYTES 6.3 % (2.0-10.0); % NEUTROPHILS 69.6 % (40.0-80.0); EOSINOPHILE ABSOLUTE 0.5 Th/cmm (0.1-0.4); HEMATOCRIT 40.7 % (41.0-60); HEMOGLOBIN 13.9 gm/dL (12-16); LYMPHOCYTE ABSOLUTE 2.5 Th/cmm (1.5-3.0); MEAN CELL VOLUME 92.5 fl (80-99); MEAN CORPUSCULAR HEMOGLOBIN 31.4 pg (26.0-30.0); MONOCYTE ABSOLUTE 0.8 Th/cmm (0.3-1.0); PLATELET COUNT 336 Th/cmm (150-400); RED BLOOD COUNT 4.41 Mil/cmm (4.30-5.70); RED CELL DISTRIBUTION WIDTH 12.4 % (11.5-20.0); WHITE BLOOD COUNT 12.8 Th/cmm (4.8-10.8)
[2019-05-09] MEDS: Enoxaparin 40 mg/0.4 mL 0.4mL Syr SUBQ SCH (08:17)
[2019-05-09] MEDS: INSULIN LISPRO SLIDING SCALE 100 UNITS/ML UNIT SUBQ SCH ×4 (08:18→20:41)
[2019-05-09] MEDS: Hydrocodone/APAP 5mg/325mg Tab PO PRN ×2 (08:19→20:47)
[2019-05-09] MEDS: Vitamin D3 2,000 IU SGL PO SCH (08:19)
[2019-05-09 08:46] LABS: BUN - UREA NITROGEN 10 mg/dL (7-25); CALCIUM SERUM 9.4 mg/dL (8.6-10.3); CARBON DIOXIDE 25.8 mEq/L (21.0-31.0); CHLORIDE 96 mEq/L (98-107); CREATININE - SERUM 0.8 mg/dL (0.7-1.3); GFR AFRICAN-AMERICAN > 60.0 ml/min (>90); GFR NON AFRICAN-AMERICAN > 60.0 ml/min; GLUCOSE 161 mg/dL (70-105); POTASSIUM SERUM 3.8 mEq/L (3.5-5.1); SODIUM SERUM 131 mEq/L (136-145)
--- NOTE | 2019-05-09 09:23 | Diagnostic Imaging Report ---
MRI right lower extremity without IV contrast History: Pain, rule out osteomyelitis Comparison: Nuclear medicine bone scan on 05/05/2019 and x-rays of the right foot on 05/08/2019 Technique/procedure: Multiplanar T1, T2, and STIR-weighted sequences of the right midfoot and forefoot were obtained without IV contrast. Findings: There are inflammatory changes with soft tissue swelling and heterogeneous density seen surrounding the right fifth metatarsal-phalangeal region. Heterogeneous density is also seen located along the plantar aspect of the phalanges which may represent combination of phlegmonous changes and fluid. Assessment for an abscess was limited due to lack of IV contrast. There is also abnormal osseous signal intensity and edema seen within the fifth proximal phalanx and possibly minimal osseous edema within the head of the fifth metatarsal. Additional small amount of focal edema of the fourth proximal phalanx can also not be excluded. Additional areas of subcutaneous edema of the forefoot are noted. There is also edema extending throughout the deeper fascial planes. The regional flexor and extensor tendons are grossly intact. A few small joint effusions are noted greatest in the first metatarsal-phalangeal joint. IMPRESSION: Areas of soft tissue edema of the forefoot and midfoot most pronounced along the plantar region of the third, fourth, and fifth phalanges with heterogeneous density and possibly phlegmonous changes seen in these region. Findings are likely this infectious process and cellulitis. Assessment for discrete abscesses was limited due to lack of IV contrast. There is also focal osseous edema seen involving the fifth proximal phalanx and possibly the head of the fifth metatarsal concerning for osteomyelitis in this region. Note additional minimal edema and focal osteomyelitis involving the fourth proximal phalanx cannot be excluded. Clinical correlation and follow-up recommended. Additional areas of edema within the deeper fascial muscle planes likely due to infectious inflammatory process.
--- NOTE | 2019-05-09 15:11 | Infectious Disease Prog Note ---
Infectious Disease Subjective - Review of Systems Service Date: 05/09/19 Subjective: There is no new change, no fever. Infectious Disease Objective - Results Result Diagrams: 05/09/19 08:00 05/09/19 08:00 Recent Labs: Laboratory Last Values WBC 12.8 Th/cmm (4.8-10.8) H 05/09/19 08:00 RBC 4.41 Mil/cmm (4.30-5.70) 05/09/19 08:00 Hgb 13.9 gm/dL (12-16) 05/09/19 08:00 Hct 40.7 % (41.0-60) L 05/09/19 08:00 MCV 92.5 fl (80-99) 05/09/19 08:00 MCH 31.4 pg (26.0-30.0) H 05/09/19 08:00 MCHC Differential 34.0 pg (28.0-36.0) 05/09/19 08:00 RDW 12.4 % (11.5-20.0) 05/09/19 08:00 Plt Count 336 Th/cmm (150-400) 05/09/19 08:00 MPV 7.1 fl 05/09/19 08:00 Add Manual Diff YES 05/07/19 15:18 Neutrophils % 69.6 % (40.0-80.0) 05/09/19 08:00 Band Neutrophils % 2 % (0-10) 05/07/19 15:18 Lymphocytes % 19.9 % (20.0-50.0) L 05/09/19 08:00 Monocytes % 6.3 % (2.0-10.0) 05/09/19 08:00 Eosinophils % 4.1 % (0.0-5.0) 05/09/19 08:00 Basophils % 0.1 % (0.0-2.0) 05/09/19 08:00 Neutrophils (Manual) 70 % (40-80) 05/07/19 15:18 Lymphocytes 19 % (20-50) L 05/07/19 15:18 Monocytes 3 % (2-10) 05/07/19 15:18 Eosinophils 5 % (0-5) 05/07/19 15:18 Basophils 1 % (0-3) 05/07/19 15:18 Platelet Estimate ADEQUATE (NORMAL) 05/07/19 15:18 ESR 67 mm/hr (0-20) H 05/05/19 06:30 PT 10.8 SECONDS (9.5-11.5) 05/01/19 22:50 INR 1.04 (0.5-1.4) 05/01/19 22:50 PTT (Actin FS) 25.1 SECONDS (26.0-38.0) L 05/01/19 22:50 D-Dimer 781 ng/mL (100-400) H 05/01/19 22:50 Sodium 131 mEq/L (136-145) L 05/09/19 08:00 Potassium 3.8 mEq/L (3.5-5.1) 05/09/19 08:00 Chloride 96 mEq/L (98-107) L 05/09/19 08:00 Carbon Dioxide 25.8 mEq/L (21.0-31.0) 05/09/19 08:00 Anion Gap 13.0 (7.0-16.0) 05/09/19 08:00 BUN 10 mg/dL (7-25) 05/09/19 08:00 Creatinine 0.8 mg/dL (0.7-1.3) 05/09/19 08:00 Est GFR ( Amer) > 60.0 ml/min (>90) 05/09/19 08:00 Est GFR (Non-Af Amer) > 60.0 ml/min 05/09/19 08:00 BUN/Creatinine Ratio 12.5 05/09/19 08:00 Glucose 161 mg/dL (70-105) H 05/09/19 08:00 POC Glucose 219 MG/DL (70 - 105) H 05/09/19 11:08 Whole Bld Lactic Acid 1.76 mmol/L (0.60-1.99) 05/01/19 22:50 Calcium 9.4 mg/dL (8.6-10.3) 05/09/19 08:00 Total Bilirubin 0.4 mg/dL (0.3-1.0) 05/07/19 15:18 AST 25 U/L (13-39) 05/07/19 15:18 ALT 24 U/L (7-52) 05/07/19 15:18 Alkaline Phosphatase 62 U/L (34-104) 05/07/19 15:18 Troponin I 0.02 ng/mL (0.01-0.05) 05/01/19 22:50 C-Reactive Protein 13.9 mg/dL (0.0-0.9) H 05/05/19 06:30 B-Natriuretic Peptide 100.0 pg/mL (5.0-100.0) 05/01/19 22:50 Total Protein 7.7 gm/dL (6.0-8.3) 05/07/19 15:18 Albumin 3.2 gm/dL (4.2-5.5) L 05/07/19 15:18 Globulin 4.5 gm/dL 05/07/19 15:18 Albumin/Globulin Ratio 0.7 (1.0-1.8) L 05/07/19 15:18 Triglycerides 97 mg/dL (<150) 05/01/19 22:50 Cholesterol 125 mg/dL (<200) 05/01/19 22:50 LDL Cholesterol Direct 69 mg/dL (75-193) L 05/01/19 22:50 HDL Cholesterol 46 mg/dL (23-92) 05/01/19 22:50 TSH 0.76 uIU/ml (0.34-5.60) 05/01/19 22:50 Urine Source CLEAN C 05/01/19 20:56 Urine Color YELLOW 05/01/19 20:56 Urine Clarity CLEAR (CLEAR) 05/01/19 20:56 Urine pH 6.5 (4.6 - 8.0) 05/01/19 20:56 Ur Specific [place] 1.010 (1.005-1.030) 05/01/19 20:56 Urine Protein NEGATIVE mg/dL (NEGATIVE) 05/01/19 20:56 Urine Glucose (UA) >=1000 mg/dL (NEGATIVE) H 05/01/19 20:56 Urine Ketones NEGATIVE mg/dL (NEGATIVE) 05/01/19 20:56 Urine Blood NEGATIVE (NEGATIVE) 05/01/19 20:56 Urine Nitrate NEGATIVE (NEGATIVE) 05/01/19 20:56 Urine Bilirubin NEGATIVE (NEGATIVE) 05/01/19 20:56 Urine Urobilinogen 1.0 E.U./dL (0.2 - 1.0) 05/01/19 20:56 Ur Leukocyte Esterase NEGATIVE (NEGATIVE) 05/01/19 20:56 Urine RBC NONE SEEN /hpf (0-5) 05/01/19 20:56 Urine WBC 0-2 /hpf (0-5) 05/01/19 20:56 Ur Epithelial Cells RARE /lpf (FEW) 05/01/19 20:56 Urine Bacteria OCCASIONAL /hpf (NONE SEEN) 05/01/19 20:56 Vancomycin Trough 19.3 ug/mL (5-10) H 05/09/19 08:00 Random Vancomycin 10.7 ug/mL (5.0-40.0) 05/05/19 15:03 Urine Opiates Screen NEGATIVE (NEGATIVE) 05/02/19 14:00 Urine Methadone Screen NEGATIVE (NEGATIVE) 05/02/19 14:00 Ur Barbiturates Screen NEGATIVE (NEGATIVE) 05/02/19 14:00 Ur Tricyclics Screen NEGATIVE (NEGATIVE) 05/02/19 14:00 Ur Phencyclidine Scrn NEGATIVE (NEGATIVE) 05/02/19 14:00 Amphetamines Screen POSITIVE (NEGATIVE) H 05/02/19 14:00 U Methamphetamines Scrn NEGATIVE (NEGATIVE) 05/02/19 14:00 U Benzodiazepines Scrn NEGATIVE (NEGATIVE) 05/02/19 14:00 U Cocaine Metab Screen NEGATIVE (NEGATIVE) 05/02/19 14:00 U Cannabinoids Screen NEGATIVE (NEGATIVE) 05/02/19 14:00 RPR NONREACTIVE (NONREACTIVE) 05/01/19 22:50 - Physical Exam Vitals and I&O: Vital Signs Temp 97.4 F 05/09/19 11:42 Pulse 70 05/09/19 11:42 Resp 18 05/09/19 11:42 BP 125/95 05/09/19 11:42 Pulse Ox 94 05/09/19 11:42 Intake & Output 05/08/19 05/09/19 05/09/19 18:59 06:59 18:59 Intake Total 1500 950 Balance 1500 950 Weight (lbs) 130.635 kg 130.635 kg Intake: Intake, IV Amount 700 450 Piperacillin Sodium/ 200 200 Tazobact 4.5 gm In Sodium Chloride 0.9% 100 ml @ 100 mls/hr IV Q8HR SRIRAM Rx #:[id number] Vancomycin HCl 1.25 gm In 500 250 Sodium Chloride 0.9% 250 ml @ 165 mls/hr IV Q8H SRIRAM Rx#:[id number] Oral 800 500 Other: # Voids 5 1,400 # Bowel Movements 1 Weight Source Bedscale Bedscale Active Medications: Current Medications Acetaminophen (Tylenol) 650 mg PO Q4HR PRN PRN Reason: Pain or Fever >101 Stop: 07/01/19 01:28 Last Admin: 05/05/19 17:55 Dose: 650 mg Acetaminophen/Hydrocodone Bitart ([place] 5mg/325mg) 1 tab PO Q6H PRN PRN Reason: Severe Pain Stop: 07/03/19 11:51 Last Admin: 05/09/19 08:19 Dose: 1 tab Amlodipine Besylate (Norvasc) 10 mg PO DAILY [facility] Stop: 07/02/19 08:59 Last Admin: 05/09/19 08:20 Dose: 10 mg Enoxaparin Sodium (Lovenox) 40 mg SUBQ DAILY [facility] Stop: 07/01/19 08:59 Last Admin: 05/09/19 08:17 Dose: 40 mg Piperacillin Sod/Tazobactam (Sod 4.5 gm/ Sodium Chloride) 100 mls @ 100 mls/hr IV Q8HR [facility] Stop: 07/03/19 20:59 Last Admin: 05/09/19 11:59 Dose: 100 mls/hr Vancomycin HCl 1.25 gm/ Sodium (Chloride) 250 mls @ 165 mls/hr IV Q8H [facility] Stop: 07/07/19 08:59 Last Admin: 05/09/19 10:29 Dose: 165 mls/hr Insulin Glargine (Lantus Insulin) 34 units SUBQ HS [facility] Stop: 07/05/19 20:59 Last Admin: 05/08/19 20:44 Dose: 34 units Insulin Human Lispro (Humalog Insulin Sliding Scale) 0 units SUBQ ACHS [facility]; Protocol Stop: 07/01/19 07:29 Last Admin: 05/09/19 11:51 Dose: 5 units Lisinopril (Zestril) 5 mg PO DAILY [facility] Stop: 07/02/19 08:59 Last Admin: 05/09/19 08:21 Dose: 5 mg Loratadine (Claritin) 10 mg PO DAILY [facility] Stop: 07/02/19 08:59 Last Admin: 05/09/19 08:19 Dose: 10 mg Metformin HCl (Glucophage) 1,000 mg PO BIDWM SRIRAM Stop: 07/01/19 07:59 Last Admin: 05/09/19 08:19 Dose: 1,000 mg Metoprolol Tartrate (Lopressor) 100 mg PO DAILY [facility] Stop: 07/02/19 08:59 Last Admin: 05/09/19 08:20 Dose: 100 mg Miscellaneous (Vancomycin Iv Per Pharmacy) 1 ea PRN [facility]IRAM Stop: 07/03/19 14:29 Miscellaneous (Probiotic Screen) 1 ea PRN PRN PRN Reason: PROTOCOL Stop: 07/04/19 14:53 Montelukast Sodium (Singulair) 10 mg PO HS SRIRAM Stop: 07/02/19 20:59 Last Admin: 05/08/19 20:43 Dose: 10 mg Mupirocin (Bactroban Oint) 1 appl TP BID SRIRAM Stop: 07/02/19 08:59 Last Admin: 05/09/19 08:16 Dose: 1 appl Pantoprazole Sodium (Protonix) 40 mg PO QDAC SRIRAM Stop: 07/02/19 07:29 Last Admin: 05/09/19 06:44 Dose: 40 mg Simvastatin (Zocor) 20 mg PO HS SRIRAM; Protocol Stop: 07/02/19 20:59 Last Admin: 05/08/19 20:43 Dose: 20 mg Tramadol HCl (Ultram) 50 mg PO Q6HR PRN PRN Reason: Pain (Moderate) Stop: 07/01/19 21:28 Last Admin: 05/08/19 23:27 Dose: 50 mg Vitamin D (Vitamin D3) 2,000 iu PO DAILY [facility] Stop: 07/02/19 08:59 Last Admin: 05/09/19 08:19 Dose: 2,000 iu General: no acute distress, well developed, well nourished HEENT: atraumatic, normocephalic, PERRLA, EOMI Neck: supple, no thyromegaly Cardiovascular: S1S2, regular Lungs: clear to auscultation bilaterally, clear to percussion Abdomen: soft, no tender, no distended Extremities: other (right foot swelling and erythema, tenderness present.), no cyanosis, no clubbing, no edema Infectious Disease Assmt/Plan - Assessment Assessment: 1. Leukocytosis, suspect sepsis. Blood cultures are negative so far. 2. Right foot abscess, cellulitis, may have osteomyelitis. 3. Diabetes mellitus type 1. 4. Left foot callus. 5. Ventral hernia or umbilical hernia. 6. Abdominal wall wound without any sign of infection. 7. Obesity. - Plan Plan: Needs podiatry consult, so needs transfer to the higher level of care. IRENE CAse management and RN. IRENE Dubon. Vanco IV and Zosyn, Nutritional Asmnt/Malnutr-PDOC - Dietary Evaluation Malnutrition Findings (Please click <Entered> for more info): Nutritional Asmnt/Malnutrition Start: 05/02/19 14: 21 Text: Status: Complete Freq: Protocol: Document 05/02/19 14:21 ROSIE (Rec: 05/02/19 14:28 ROSIE [id number]) Nutritional Asmnt/Malnutrition Patient General Information Nutritional Screening High Risk Diagnosis CELLULITIS LOWER EXTREMITIES, DIABETES Pertinent Medical Hx/Surgical Hx DM, HEART DISEASE, HTN, OBESITY Subjective Information IA, HIGH RISK, CONSULT: DIABETIC, UNCONTROLLED PT DOWNGRADED TO MODERATE RISK PT IS A 53 YEAR OLD MALE ADMITTED ON 05/02 C/O SWOLEN FEET AND LEGS WITH FEVER. PT HAS HAD DIFFICULTY WALKING LATELY. SPOKE WITH IN AT BEDSIDE AFTER LUNCH. PT WAS PLEASANT AND STATED HE ENJOYED BREAKFAST AND LUNCH, EATING 100%. DISCUSSED PT ROUTINE AT HOME CONCERNING DM CARE AND MANAGEMENT. PT STATED HE EATS OUT, DOES NOT COOK. PROVIDED PT WITH EDUCATION MATERIALS AND DISCUSSED HEALTHIER CHOICES WHEN EATING OUT TO MANAGE HID DM. PT WAS ACCEPTING OF THE INFORMATION AND VERBALIZED UNDERSTANDING. PT WAS NOT INTERESTED IN ANY OUTPATIENT DM EDUCATION/ COUNSELING. HT: 61 WT: 280 LB (127.27 KG) ABW: 218 LB (99.10) BMI: 36.94 (OBESE, CLASS II) GI: WNL, SOFT, LARGE, NON- TENDER BM: NOT NOTED I/O: 100/NOT NOTED SKIN: WARM, DRY, ELASTIC, FAIZAN LOWER EXTREMITIES REDENNED WITH PAIN AND SWELLING WOUND: ABD OPEN SCAB, RT FOOT 5TH TOE WOUND ANDREA: 22 DIET ORDER: [facility] 45 ESTIMATED ENERGY NEEDS: (OBESE II, ABW) [id number] KCALS (20-25 KCALS/ KG) 79-89G PRO (0.8-0.9 G/KG) 3400-4000ML (35-40 ML/KG) Current Diet Order/ Nutrition Support [facility] 45 Pertinent Medications INS-SS, GLUCOPHAGE Pertinent Labs 05/02: NA 134, GLUCOSE 229, ALB 3.2 POC GLUCOSE (LAST 24 HOURS): 262,296,236 Nutritional Hx/Data Height 1.85 m Height (Calculated Centimeters) 185.4 Current Weight (lbs) 127.006 kg Weight (Calculated Kilograms) 127.0 Weight (Calculated Grams) 211617.9 [place] Body Weight 184 LB % [place] Body Weight 152 Body Mass Index (BMI) 36.9 Weight Status Obese GI Symptoms GI Symptoms None Last BM NOT NOTED Usual diet at home REGULAR Skin Integrity/Comment: SKIN: WARM, DRY, ELASTIC, FAIZAN LOWER EXTREMITIES REDENNED WITH PAIN AND SWELLING WOUND: ABD OPEN SCAB, RT FOOT 5TH TOE WOUND ANDREA: 22 Current %PO Good (75-100%) Estimated Nutritional Goals BEE in Kcals: Adj wt of IBW Calories/Kcals/Kg 20-25 Kcals Calculated 6029-7064 Protein: Adj wt of IBW Protein g/k.8-0.9 Protein Calculated 79-89 GM Fluid: ml 3400-4000ML (35-40 ML/KG) Nutritional Problem 3. Problem Problem LIMITED ADHERENCE TO NUTRITION -RELATED RECOMMENDATIONS Etiology R/T DM Signs/Symptoms: AEB PT SELF REPORT OF NOT FOLLOWING ANY DIET EVEN THOUGH HE HAS HAD DM EEUCATION PREVIOUSLY 2. Problem Problem OBESITY Etiology R/T EXCESSIVE ENERGY INTAKE Signs/Symptoms: AEB BMI 36.94 AND PT SELF REPORT OF EATING A LOT OF FAST FOOD 1. Problem Problem ALTERED NUTRITION RELATED LAB Etiology R/T ENDOCRINE DYSFUNCTION Signs/Symptoms: AEB HX DM AND GLUCOSE 229-296 Malnutrition Related to Morbid Obesity Malnutrition related to morbid obesity No Intervention/Recommendation Comments 1. CONTINUE WITH [facility] 45 DIET ORDERED. 2. CONTINUE ANTIHYPERGLYCEMIC MEDICATIONS PER MD ORDER. 3. PROVIDE PT WITH DM EDUCATION AND EDUCATION MATERIALS TO TAKE HOME ( COMPLETED). Expected Outcomes/Goals Expected Outcomes/Goals 1. PO INTAKE TO MEET > 75% OF NUTRITIONAL NEEDS. 2. MONITOR PO INTAKE, WT, NUTRITION RELATED LABS AND SKIN INTEGRITY. 3. NUTRITION RELATED LABS TO TREND WNL IN 3-5 DAYS. 4. F/U MODERATE RISK IN 3-5 DAYS 05/05-05/07
[2019-05-09] MEDS: Insulin Glargine 100 units/ml 10ml Vial SUBQ SCH (20:36)
--- NOTE | 2019-05-09 22:44 | Internal Medicine Prog Note ---
Internal Medicine Subjective - Subjective Service Date: 05/09/19 Patient seen and examined:: without staff (HE STILL HAS PAIN) Patient is:: awake, verbal, in bed, talking Per staff patient has:: no adverse event Internal Medicine Objective - Results Result Diagrams: 05/09/19 08:00 05/09/19 08:00 Recent Labs: Laboratory Last Values WBC 12.8 Th/cmm (4.8-10.8) H 05/09/19 08:00 RBC 4.41 Mil/cmm (4.30-5.70) 05/09/19 08:00 Hgb 13.9 gm/dL (12-16) 05/09/19 08:00 Hct 40.7 % (41.0-60) L 05/09/19 08:00 MCV 92.5 fl (80-99) 05/09/19 08:00 MCH 31.4 pg (26.0-30.0) H 05/09/19 08:00 MCHC Differential 34.0 pg (28.0-36.0) 05/09/19 08:00 RDW 12.4 % (11.5-20.0) 05/09/19 08:00 Plt Count 336 Th/cmm (150-400) 05/09/19 08:00 MPV 7.1 fl 05/09/19 08:00 Add Manual Diff YES 05/07/19 15:18 Neutrophils % 69.6 % (40.0-80.0) 05/09/19 08:00 Band Neutrophils % 2 % (0-10) 05/07/19 15:18 Lymphocytes % 19.9 % (20.0-50.0) L 05/09/19 08:00 Monocytes % 6.3 % (2.0-10.0) 05/09/19 08:00 Eosinophils % 4.1 % (0.0-5.0) 05/09/19 08:00 Basophils % 0.1 % (0.0-2.0) 05/09/19 08:00 Neutrophils (Manual) 70 % (40-80) 05/07/19 15:18 Lymphocytes 19 % (20-50) L 05/07/19 15:18 Monocytes 3 % (2-10) 05/07/19 15:18 Eosinophils 5 % (0-5) 05/07/19 15:18 Basophils 1 % (0-3) 05/07/19 15:18 Platelet Estimate ADEQUATE (NORMAL) 05/07/19 15:18 ESR 67 mm/hr (0-20) H 05/05/19 06:30 PT 10.8 SECONDS (9.5-11.5) 05/01/19 22:50 INR 1.04 (0.5-1.4) 05/01/19 22:50 PTT (Actin FS) 25.1 SECONDS (26.0-38.0) L 05/01/19 22:50 D-Dimer 781 ng/mL (100-400) H 05/01/19 22:50 Sodium 131 mEq/L (136-145) L 05/09/19 08:00 Potassium 3.8 mEq/L (3.5-5.1) 05/09/19 08:00 Chloride 96 mEq/L (98-107) L 05/09/19 08:00 Carbon Dioxide 25.8 mEq/L (21.0-31.0) 05/09/19 08:00 Anion Gap 13.0 (7.0-16.0) 05/09/19 08:00 BUN 10 mg/dL (7-25) 05/09/19 08:00 Creatinine 0.8 mg/dL (0.7-1.3) 05/09/19 08:00 Est GFR ( Amer) > 60.0 ml/min (>90) 05/09/19 08:00 Est GFR (Non-Af Amer) > 60.0 ml/min 05/09/19 08:00 BUN/Creatinine Ratio 12.5 05/09/19 08:00 Glucose 161 mg/dL (70-105) H 05/09/19 08:00 POC Glucose 166 MG/DL (70 - 105) H 05/09/19 20:38 Whole Bld Lactic Acid 1.76 mmol/L (0.60-1.99) 05/01/19 22:50 Calcium 9.4 mg/dL (8.6-10.3) 05/09/19 08:00 Total Bilirubin 0.4 mg/dL (0.3-1.0) 05/07/19 15:18 AST 25 U/L (13-39) 05/07/19 15:18 ALT 24 U/L (7-52) 05/07/19 15:18 Alkaline Phosphatase 62 U/L (34-104) 05/07/19 15:18 Troponin I 0.02 ng/mL (0.01-0.05) 05/01/19 22:50 C-Reactive Protein 13.9 mg/dL (0.0-0.9) H 05/05/19 06:30 B-Natriuretic Peptide 100.0 pg/mL (5.0-100.0) 05/01/19 22:50 Total Protein 7.7 gm/dL (6.0-8.3) 05/07/19 15:18 Albumin 3.2 gm/dL (4.2-5.5) L 05/07/19 15:18 Globulin 4.5 gm/dL 05/07/19 15:18 Albumin/Globulin Ratio 0.7 (1.0-1.8) L 05/07/19 15:18 Triglycerides 97 mg/dL (<150) 05/01/19 22:50 Cholesterol 125 mg/dL (<200) 05/01/19 22:50 LDL Cholesterol Direct 69 mg/dL (75-193) L 05/01/19 22:50 HDL Cholesterol 46 mg/dL (23-92) 05/01/19 22:50 TSH 0.76 uIU/ml (0.34-5.60) 05/01/19 22:50 Urine Source CLEAN C 05/01/19 20:56 Urine Color YELLOW 05/01/19 20:56 Urine Clarity CLEAR (CLEAR) 05/01/19 20:56 Urine pH 6.5 (4.6 - 8.0) 05/01/19 20:56 Ur Specific [place] 1.010 (1.005-1.030) 05/01/19 20:56 Urine Protein NEGATIVE mg/dL (NEGATIVE) 05/01/19 20:56 Urine Glucose (UA) >=1000 mg/dL (NEGATIVE) H 05/01/19 20:56 Urine Ketones NEGATIVE mg/dL (NEGATIVE) 05/01/19 20:56 Urine Blood NEGATIVE (NEGATIVE) 05/01/19 20:56 Urine Nitrate NEGATIVE (NEGATIVE) 05/01/19 20:56 Urine Bilirubin NEGATIVE (NEGATIVE) 05/01/19 20:56 Urine Urobilinogen 1.0 E.U./dL (0.2 - 1.0) 05/01/19 20:56 Ur Leukocyte Esterase NEGATIVE (NEGATIVE) 05/01/19 20:56 Urine RBC NONE SEEN /hpf (0-5) 05/01/19 20:56 Urine WBC 0-2 /hpf (0-5) 05/01/19 20:56 Ur Epithelial Cells RARE /lpf (FEW) 05/01/19 20:56 Urine Bacteria OCCASIONAL /hpf (NONE SEEN) 05/01/19 20:56 Vancomycin Trough 19.3 ug/mL (5-10) H 05/09/19 08:00 Random Vancomycin 10.7 ug/mL (5.0-40.0) 05/05/19 15:03 Urine Opiates Screen NEGATIVE (NEGATIVE) 05/02/19 14:00 Urine Methadone Screen NEGATIVE (NEGATIVE) 05/02/19 14:00 Ur Barbiturates Screen NEGATIVE (NEGATIVE) 05/02/19 14:00 Ur Tricyclics Screen NEGATIVE (NEGATIVE) 05/02/19 14:00 Ur Phencyclidine Scrn NEGATIVE (NEGATIVE) 05/02/19 14:00 Amphetamines Screen POSITIVE (NEGATIVE) H 05/02/19 14:00 U Methamphetamines Scrn NEGATIVE (NEGATIVE) 05/02/19 14:00 U Benzodiazepines Scrn NEGATIVE (NEGATIVE) 05/02/19 14:00 U Cocaine Metab Screen NEGATIVE (NEGATIVE) 05/02/19 14:00 U Cannabinoids Screen NEGATIVE (NEGATIVE) 05/02/19 14:00 RPR NONREACTIVE (NONREACTIVE) 05/01/19 22:50 - Physical Exam Vitals and I&O: Vital Signs Temp 97.2 F 05/09/19 20:00 Pulse 83 05/09/19 20:00 Resp 18 05/09/19 20:00 BP 143/76 05/09/19 20:00 Pulse Ox 97 05/09/19 20:00 Intake & Output 05/09/19 05/09/19 05/10/19 06:59 18:59 06:59 Intake Total 950 1100 Output Total 1400 Balance 950 -300 Weight (lbs) 130.635 kg 130.635 kg Intake: Intake, IV Amount 450 350 Piperacillin Sodium/ 200 100 Tazobact 4.5 gm In Sodium Chloride 0.9% 100 ml @ 100 mls/hr IV Q8HR [facility] Rx #:[id number] Vancomycin HCl 1.25 gm In 250 250 Sodium Chloride 0.9% 250 ml @ 165 mls/hr IV Q8H [facility] Rx#:[id number] Oral 500 750 Output: Urine 1400 Other: # Voids 1,400 # Bowel Movements 0 Weight Source Bedscale Bedscale Active Medications: Current Medications Acetaminophen (Tylenol) 650 mg PO Q4HR PRN PRN Reason: Pain or Fever >101 Stop: 07/01/19 01:28 Last Admin: 05/05/19 17:55 Dose: 650 mg Acetaminophen/Hydrocodone Bitart ([place] 5mg/325mg) 1 tab PO Q6H PRN PRN Reason: Severe Pain Stop: 07/03/19 11:51 Last Admin: 05/09/19 20:47 Dose: 1 tab Amlodipine Besylate (Norvasc) 10 mg PO DAILY [facility] Stop: 07/02/19 08:59 Last Admin: 05/09/19 08:20 Dose: 10 mg Enoxaparin Sodium (Lovenox) 40 mg SUBQ DAILY [facility] Stop: 07/01/19 08:59 Last Admin: 05/09/19 08:17 Dose: 40 mg Piperacillin Sod/Tazobactam (Sod 4.5 gm/ Sodium Chloride) 100 mls @ 100 mls/hr IV Q8HR [facility] Stop: 07/03/19 20:59 Last Admin: 05/09/19 20:35 Dose: 100 mls/hr Vancomycin HCl 1.25 gm/ Sodium (Chloride) 250 mls @ 165 mls/hr IV Q8H [facility] Stop: 07/07/19 08:59 Last Admin: 05/09/19 17:09 Dose: 165 mls/hr Insulin Glargine (Lantus Insulin) 34 units SUBQ HS [facility] Stop: 07/05/19 20:59 Last Admin: 05/09/19 20:36 Dose: 34 units Insulin Human Lispro (Humalog Insulin Sliding Scale) 0 units SUBQ [facility]; Protocol Stop: 07/01/19 07:29 Last Admin: 05/09/19 20:41 Dose: 3 units Lisinopril (Zestril) 5 mg PO DAILY [facility] Stop: 07/02/19 08:59 Last Admin: 05/09/19 08:21 Dose: 5 mg Loratadine (Claritin) 10 mg PO DAILY [facility] Stop: 07/02/19 08:59 Last Admin: 05/09/19 08:19 Dose: 10 mg Metformin HCl (Glucophage) 1,000 mg PO BIDWM SRIRAM Stop: 07/01/19 07:59 Last Admin: 05/09/19 17:20 Dose: 1,000 mg Metoprolol Tartrate (Lopressor) 100 mg PO DAILY [facility] Stop: 07/02/19 08:59 Last Admin: 05/09/19 08:20 Dose: 100 mg Miscellaneous (Vancomycin Iv Per Pharmacy) 1 ea PRN SRIRAM Stop: 07/03/19 14:29 Miscellaneous (Probiotic Screen) 1 ea PRN PRN PRN Reason: PROTOCOL Stop: 07/04/19 14:53 Montelukast Sodium (Singulair) 10 mg PO HS SRIRAM Stop: 07/02/19 20:59 Last Admin: 05/09/19 20:35 Dose: 10 mg Mupirocin (Bactroban Oint) 1 appl TP BID SRIRAM Stop: 07/02/19 08:59 Last Admin: 05/09/19 17:09 Dose: 1 appl Pantoprazole Sodium (Protonix) 40 mg PO QDAC SRIR[facility] Stop: 07/02/19 07:29 Last Admin: 05/09/19 06:44 Dose: 40 mg Simvastatin (Zocor) 20 mg PO HS [facility]; Protocol Stop: 07/02/19 20:59 Last Admin: 05/09/19 20:35 Dose: 20 mg Tramadol HCl (Ultram) 50 mg PO Q6HR PRN PRN Reason: Pain (Moderate) Stop: 07/01/19 21:28 Last Admin: 05/08/19 23:27 Dose: 50 mg Vitamin D (Vitamin D3) 2,000 iu PO DAILY SRIRAM Stop: 07/02/19 08:59 Last Admin: 05/09/19 08:19 Dose: 2,000 iu General: alert HEENT: NC/AT, PERRLA, EOMI, anicteric sclerae, throat clear Neck: Supple, No JVD, No thyromegaly, +2 carotid pulse wo bruit, No LAD Lungs: CTAB Cardiovascular: RRR, Normal S1, Normal S2, without murmur Abdomen: soft, non-tender, non-distended Extremities: rash, ulcers stage 1 (MULTIPLE OPENED WOUND OF BOTH LOWER EXTREM. SKIN), other (THERE IS A LUMP ON BACK OF HIS LEFT CULF AREA) Neurological: no change Internal Medicine Assmt/Plan - Assessment Assessment: 1.CELLULITIS OF RT FOOT. 2.IDDM 3.SEPSIS 4.POSSIBLE OSTEOMYELITIS OF RT FOOT. - Plan Plan: CONTINUE ON CURRENT MEDICATION AND DIET. Nutritional Asmnt/Malnutr-PDOC - Dietary Evaluation Malnutrition Findings (Please click <Entered> for more info): Nutritional Asmnt/Malnutrition Start: 05/02/19 14: 21 Text: Status: Complete Freq: Protocol: Document 05/02/19 14:21 ROSIE (Rec: 05/02/19 14:28 ROSIE [id number]) Nutritional Asmnt/Malnutrition Patient General Information Nutritional Screening High Risk Diagnosis CELLULITIS LOWER EXTREMITIES, DIABETES Pertinent Medical Hx/Surgical Hx DM, HEART DISEASE, HTN, OBESITY Subjective Information IA, HIGH RISK, CONSULT: DIABETIC, UNCONTROLLED PT DOWNGRADED TO MODERATE RISK PT IS A 53 YEAR OLD MALE ADMITTED ON 05/02 C/O SWOLEN FEET AND LEGS WITH FEVER. PT HAS HAD DIFFICULTY WALKING LATELY. SPOKE WITH NM AT BEDSIDE AFTER LUNCH. PT WAS PLEASANT AND STATED HE ENJOYED BREAKFAST AND LUNCH, EATING 100%. DISCUSSED PT ROUTINE AT HOME CONCERNING DM CARE AND MANAGEMENT. PT STATED HE EATS OUT, DOES NOT COOK. PROVIDED PT WITH EDUCATION MATERIALS AND DISCUSSED HEALTHIER CHOICES WHEN EATING OUT TO MANAGE HID DM. PT WAS ACCEPTING OF THE INFORMATION AND VERBALIZED UNDERSTANDING. PT WAS NOT INTERESTED IN ANY OUTPATIENT DM EDUCATION/ COUNSELING. HT: 61 WT: 280 LB (127.27 KG) ABW: 218 LB (99.10) BMI: 36.94 (OBESE, CLASS II) GI: WNL, SOFT, LARGE, NON- TENDER BM: NOT NOTED I/O: 100/NOT NOTED SKIN: WARM, DRY, ELASTIC, FAIZAN LOWER EXTREMITIES REDENNED WITH PAIN AND SWELLING WOUND: ABD OPEN SCAB, RT FOOT 5TH TOE WOUND ANDREA: 22 [facility] ESTIMATED ENERGY NEEDS: (OBESE II, ABW) 4983-7894 KCALS (20-25 KCALS/ KG) 79-89G PRO (0.8-0.9 G/KG) 3400-4000ML (35-40 ML/KG) Current Diet Order/ Nutrition Support [facility] Pertinent Medications INS-SS, GLUCOPHAGE Pertinent Labs 7/9: NA 134, GLUCOSE 229, ALB 3.2 POC GLUCOSE (LAST 24 HOURS): 262,296,236 Nutritional Hx/Data Height 1.85 m Height (Calculated Centimeters) 185.4 Current Weight (lbs) 127.006 kg Weight (Calculated Kilograms) 127.0 Weight (Calculated Grams) 559070.9 [place] Body Weight 184 LB % [place] Body Weight 152 Body Mass Index (BMI) 36.9 Weight Status Obese GI Symptoms GI Symptoms None Last BM NOT NOTED Usual diet at home REGULAR Skin Integrity/Comment: SKIN: WARM, DRY, ELASTIC, FAIZAN LOWER EXTREMITIES REDENNED WITH PAIN AND SWELLING WOUND: ABD OPEN SCAB, RT FOOT 5TH TOE WOUND ANDREA: 22 Current %PO Good (75-100%) Estimated Nutritional Goals BEE in Kcals: Adj wt of IBW Calories/Kcals/Kg 20-25 Kcals Calculated [id number] Protein: Adj wt of IBW Protein g/k.8-0.9 Protein Calculated 79-89 GM Fluid: ml 3400-4000ML (35-40 ML/KG) Nutritional Problem 3. Problem Problem LIMITED ADHERENCE TO NUTRITION -RELATED RECOMMENDATIONS Etiology R/T DM Signs/Symptoms: AEB PT SELF REPORT OF NOT FOLLOWING ANY DIET EVEN THOUGH HE HAS HAD DM EEUCATION PREVIOUSLY 2. Problem Problem OBESITY Etiology R/T EXCESSIVE ENERGY INTAKE Signs/Symptoms: AEB BMI 36.94 AND PT SELF REPORT OF EATING A LOT OF FAST FOOD 1. Problem Problem ALTERED NUTRITION RELATED LAB Etiology R/T ENDOCRINE DYSFUNCTION Signs/Symptoms: AEB HX DM AND GLUCOSE 229-296 Malnutrition Related to Morbid Obesity Malnutrition related to morbid obesity No Intervention/Recommendation Comments 1. CONTINUE WITH [facility] 45GM DIET ORDERED. 2. CONTINUE ANTIHYPERGLYCEMIC MEDICATIONS PER MD ORDER. 3. PROVIDE PT WITH DM EDUCATION AND EDUCATION MATERIALS TO TAKE HOME ( COMPLETED). Expected Outcomes/Goals Expected Outcomes/Goals 1. PO INTAKE TO MEET > 75% OF NUTRITIONAL NEEDS. 2. MONITOR PO INTAKE, WT, NUTRITION RELATED LABS AND SKIN INTEGRITY. 3. NUTRITION RELATED LABS TO TREND WNL IN 3-5 DAYS. 4. F/U MODERATE RISK IN 3-5 DAYS 05/05-05/07
[2019-05-10] MEDS: INSULIN LISPRO SLIDING SCALE 100 UNITS/ML UNIT SUBQ SCH ×4 (06:42→21:28)
[2019-05-10] MEDS: Pantoprazole 40 mg EC Tab PO SCH (06:44)
[2019-05-10] MEDS: Hydrocodone/APAP 5mg/325mg Tab PO PRN (06:44)
[2019-05-10] MEDS: Enoxaparin 40 mg/0.4 mL 0.4mL Syr SUBQ SCH (08:20)
[2019-05-10] MEDS: Vitamin D3 2,000 IU SGL PO SCH (08:21)
--- NOTE | 2019-05-10 21:02 | Internal Medicine Prog Note ---
Internal Medicine Subjective - Subjective Service Date: 05/10/19 Patient seen and examined:: without staff (HE HAS PAIN AT SITE OF SKIN WOUNDS ON BOTH LOWER EXTRE.) Patient is:: awake, verbal, in bed, talking Per staff patient has:: no adverse event Internal Medicine Objective - Results Result Diagrams: 05/09/19 08:00 05/09/19 08:00 Recent Labs: Laboratory Last Values WBC 12.8 Th/cmm (4.8-10.8) H 05/09/19 08:00 RBC 4.41 Mil/cmm (4.30-5.70) 05/09/19 08:00 Hgb 13.9 gm/dL (12-16) 05/09/19 08:00 Hct 40.7 % (41.0-60) L 05/09/19 08:00 MCV 92.5 fl (80-99) 05/09/19 08:00 MCH 31.4 pg (26.0-30.0) H 05/09/19 08:00 MCHC Differential 34.0 pg (28.0-36.0) 05/09/19 08:00 RDW 12.4 % (11.5-20.0) 05/09/19 08:00 Plt Count 336 Th/cmm (150-400) 05/09/19 08:00 MPV 7.1 fl 05/09/19 08:00 Add Manual Diff YES 05/07/19 15:18 Neutrophils % 69.6 % (40.0-80.0) 05/09/19 08:00 Band Neutrophils % 2 % (0-10) 05/07/19 15:18 Lymphocytes % 19.9 % (20.0-50.0) L 05/09/19 08:00 Monocytes % 6.3 % (2.0-10.0) 05/09/19 08:00 Eosinophils % 4.1 % (0.0-5.0) 05/09/19 08:00 Basophils % 0.1 % (0.0-2.0) 05/09/19 08:00 Neutrophils (Manual) 70 % (40-80) 05/07/19 15:18 Lymphocytes 19 % (20-50) L 05/07/19 15:18 Monocytes 3 % (2-10) 05/07/19 15:18 Eosinophils 5 % (0-5) 05/07/19 15:18 Basophils 1 % (0-3) 05/07/19 15:18 Platelet Estimate ADEQUATE (NORMAL) 05/07/19 15:18 ESR 67 mm/hr (0-20) H 05/05/19 06:30 PT 10.8 SECONDS (9.5-11.5) 05/01/19 22:50 INR 1.04 (0.5-1.4) 05/01/19 22:50 PTT (Actin FS) 25.1 SECONDS (26.0-38.0) L 05/01/19 22:50 D-Dimer 772 ng/mL (100-400) H 05/10/19 20:10 Sodium 131 mEq/L (136-145) L 05/09/19 08:00 Potassium 3.8 mEq/L (3.5-5.1) 05/09/19 08:00 Chloride 96 mEq/L (98-107) L 05/09/19 08:00 Carbon Dioxide 25.8 mEq/L (21.0-31.0) 05/09/19 08:00 Anion Gap 13.0 (7.0-16.0) 05/09/19 08:00 BUN 10 mg/dL (7-25) 05/09/19 08:00 Creatinine 0.8 mg/dL (0.7-1.3) 05/09/19 08:00 Est GFR ( Amer) > 60.0 ml/min (>90) 05/09/19 08:00 Est GFR (Non-Af Amer) > 60.0 ml/min 05/09/19 08:00 BUN/Creatinine Ratio 12.5 05/09/19 08:00 Glucose 161 mg/dL (70-105) H 05/09/19 08:00 POC Glucose 155 MG/DL (70 - 105) H 05/10/19 17:15 Whole Bld Lactic Acid 1.76 mmol/L (0.60-1.99) 05/01/19 22:50 Calcium 9.4 mg/dL (8.6-10.3) 05/09/19 08:00 Total Bilirubin 0.4 mg/dL (0.3-1.0) 05/07/19 15:18 AST 25 U/L (13-39) 05/07/19 15:18 ALT 24 U/L (7-52) 05/07/19 15:18 Alkaline Phosphatase 62 U/L (34-104) 05/07/19 15:18 Troponin I 0.02 ng/mL (0.01-0.05) 05/01/19 22:50 C-Reactive Protein 13.9 mg/dL (0.0-0.9) H 05/05/19 06:30 B-Natriuretic Peptide 100.0 pg/mL (5.0-100.0) 05/01/19 22:50 Total Protein 7.7 gm/dL (6.0-8.3) 05/07/19 15:18 Albumin 3.2 gm/dL (4.2-5.5) L 05/07/19 15:18 Globulin 4.5 gm/dL 05/07/19 15:18 Albumin/Globulin Ratio 0.7 (1.0-1.8) L 05/07/19 15:18 Triglycerides 97 mg/dL (<150) 05/01/19 22:50 Cholesterol 125 mg/dL (<200) 05/01/19 22:50 LDL Cholesterol Direct 69 mg/dL (75-193) L 05/01/19 22:50 HDL Cholesterol 46 mg/dL (23-92) 05/01/19 22:50 TSH 0.76 uIU/ml (0.34-5.60) 05/01/19 22:50 Urine Source CLEAN C 05/01/19 20:56 Urine Color YELLOW 05/01/19 20:56 Urine Clarity CLEAR (CLEAR) 05/01/19 20:56 Urine pH 6.5 (4.6 - 8.0) 05/01/19 20:56 Ur Specific [place] 1.010 (1.005-1.030) 05/01/19 20:56 Urine Protein NEGATIVE mg/dL (NEGATIVE) 05/01/19 20:56 Urine Glucose (UA) >=1000 mg/dL (NEGATIVE) H 05/01/19 20:56 Urine Ketones NEGATIVE mg/dL (NEGATIVE) 05/01/19 20:56 Urine Blood NEGATIVE (NEGATIVE) 05/01/19 20:56 Urine Nitrate NEGATIVE (NEGATIVE) 05/01/19 20:56 Urine Bilirubin NEGATIVE (NEGATIVE) 05/01/19 20:56 Urine Urobilinogen 1.0 E.U./dL (0.2 - 1.0) 05/01/19 20:56 Ur Leukocyte Esterase NEGATIVE (NEGATIVE) 05/01/19 20:56 Urine RBC NONE SEEN /hpf (0-5) 05/01/19 20:56 Urine WBC 0-2 /hpf (0-5) 05/01/19 20:56 Ur Epithelial Cells RARE /lpf (FEW) 05/01/19 20:56 Urine Bacteria OCCASIONAL /hpf (NONE SEEN) 05/01/19 20:56 Vancomycin Trough 19.3 ug/mL (5-10) H 05/09/19 08:00 Random Vancomycin 10.7 ug/mL (5.0-40.0) 05/05/19 15:03 Urine Opiates Screen NEGATIVE (NEGATIVE) 05/02/19 14:00 Urine Methadone Screen NEGATIVE (NEGATIVE) 05/02/19 14:00 Ur Barbiturates Screen NEGATIVE (NEGATIVE) 05/02/19 14:00 Ur Tricyclics Screen NEGATIVE (NEGATIVE) 05/02/19 14:00 Ur Phencyclidine Scrn NEGATIVE (NEGATIVE) 05/02/19 14:00 Amphetamines Screen POSITIVE (NEGATIVE) H 05/02/19 14:00 U Methamphetamines Scrn NEGATIVE (NEGATIVE) 05/02/19 14:00 U Benzodiazepines Scrn NEGATIVE (NEGATIVE) 05/02/19 14:00 U Cocaine Metab Screen NEGATIVE (NEGATIVE) 05/02/19 14:00 U Cannabinoids Screen NEGATIVE (NEGATIVE) 05/02/19 14:00 RPR NONREACTIVE (NONREACTIVE) 05/01/19 22:50 - Physical Exam Vitals and I&O: Vital Signs Temp 97.7 F 05/10/19 15:00 Pulse 73 05/10/19 15:00 Resp 18 05/10/19 20:00 BP 109/67 05/10/19 15:00 Pulse Ox 94 05/10/19 15:00 Intake & Output 05/10/19 05/10/19 05/11/19 06:59 18:59 06:59 Intake Total 1950 1250 Output Total 1500 1400 Balance 450 -150 Weight (lbs) 130.635 kg 130.635 kg Intake: Intake, IV Amount 450 250 Piperacillin Sodium/ 200 Tazobact 4.5 gm In Sodium Chloride 0.9% 100 ml @ 100 mls/hr IV Q8HR SRIR[facility] Rx #:[id number] Vancomycin HCl 1.25 gm In 250 250 Sodium Chloride 0.9% 250 ml @ 165 mls/hr IV Q8H [facility] Rx#:[id number] Oral 1500 1000 Output: Urine 1500 1400 Other: # Bowel Movements 1 0 Stool Characteristics Soft Formed Brown Weight Source Bedscale Bedscale Active Medications: Current Medications Acetaminophen (Tylenol) 650 mg PO Q4HR PRN PRN Reason: Pain or Fever >101 Stop: 07/01/19 01:28 Last Admin: 05/05/19 17:55 Dose: 650 mg Acetaminophen/Hydrocodone Bitart ([place] 5mg/325mg) 1 tab PO Q6H PRN PRN Reason: Severe Pain Stop: 07/03/19 11:51 Last Admin: 05/10/19 06:44 Dose: 1 tab Amlodipine Besylate (Norvasc) 10 mg PO DAILY [facility] Stop: 07/02/19 08:59 Last Admin: 05/10/19 08:21 Dose: 10 mg [place] Oil/[place] Balsam/Trypsin (Venelex) 1 appl TP DAILY [facility] Stop: 07/09/19 17:14 Enoxaparin Sodium (Lovenox) 40 mg SUBQ DAILY [facility] Stop: 07/01/19 08:59 Last Admin: 05/10/19 08:20 Dose: 40 mg Piperacillin Sod/Tazobactam (Sod 4.5 gm/ Sodium Chloride) 100 mls @ 100 mls/hr IV Q8HR [facility] Stop: 07/03/19 20:59 Last Admin: 05/10/19 13:00 Dose: 100 mls/hr Vancomycin HCl 1.25 gm/ Sodium (Chloride) 250 mls @ 165 mls/hr IV Q8H [facility] Stop: 07/07/19 08:59 Last Admin: 05/10/19 17:17 Dose: 165 mls/hr Insulin Glargine (Lantus Insulin) 34 units SUBQ HS [facility] Stop: 07/05/19 20:59 Last Admin: 05/09/19 20:36 Dose: 34 units Insulin Human Lispro (Humalog Insulin Sliding Scale) 0 units SUBQ ACHS [facility]; Protocol Stop: 07/01/19 07:29 Last Admin: 05/10/19 17:20 Dose: 3 units Lisinopril (Zestril) 5 mg PO DAILY [facility] Stop: 07/02/19 08:59 Last Admin: 05/10/19 08:21 Dose: 5 mg Loratadine (Claritin) 10 mg PO DAILY [facility] Stop: 07/02/19 08:59 Last Admin: 05/10/19 08:21 Dose: 10 mg Metformin HCl (Glucophage) 1,000 mg PO BIDWM [facility] Stop: 07/01/19 07:59 Last Admin: 05/10/19 17:20 Dose: 1,000 mg Metoprolol Tartrate (Lopressor) 100 mg PO DAILY [facility] Stop: 07/02/19 08:59 Last Admin: 05/10/19 08:20 Dose: 100 mg Miscellaneous (Vancomycin Iv Per Pharmacy) 1 ea PRN [facility] Stop: 07/03/19 14:29 Miscellaneous (Probiotic Screen) 1 [facility] PRN PRN PRN Reason: PROTOCOL Stop: 07/04/19 14:53 Montelukast Sodium (Singulair) 10 mg PO HS [facility] Stop: 07/02/19 20:59 Last Admin: 05/09/19 20:35 Dose: 10 mg Mupirocin (Bactroban Oint) 1 appl TP BID [facility] Stop: 07/02/19 08:59 Last Admin: 05/10/19 17:17 Dose: 1 appl Pantoprazole Sodium (Protonix) 40 mg PO QDAC [facility] Stop: 07/02/19 07:29 Last Admin: 05/10/19 06:44 Dose: 40 mg Simvastatin (Zocor) 20 mg PO [facility]; Protocol Stop: 07/02/19 20:59 Last Admin: 05/09/19 20:35 Dose: 20 mg Vitamin D (Vitamin D3) 2,000 iu PO DAILY [facility] Stop: 07/02/19 08:59 Last Admin: 05/10/19 08:21 Dose: 2,000 iu General: alert HEENT: NC/AT, PERRLA, EOMI, anicteric sclerae, throat clear Neck: Supple, No JVD, No thyromegaly, +2 carotid pulse wo bruit, No LAD Lungs: CTAB Cardiovascular: RRR, Normal S1, Normal S2, without murmur Abdomen: soft, non-tender, non-distended Extremities: rash, ulcers stage 1 (MULTIPLE OPENED WOUND OF BOTH LOWER EXTREM. SKIN), other (THERE ARE THREE OPEND WOUNDS ON BOTH LWER EXTREM) Neurological: no change Internal Medicine Assmt/Plan - Assessment Assessment: 1.MULTIPLE OPENED WOUNDS ON LOWER EXTREM. 2.IDDM 3.SEPSIS 4.POSSIBLE OSTEOMYELITIS OF RT FOOT. - Plan Plan: CONTINUE ON CURRENT MEDICATION AND DIET.CONSULT , GENERAL SURGEON Nutritional Asmnt/Malnutr-PDOC - Dietary Evaluation Malnutrition Findings (Please click <Entered> for more info): Nutritional Asmnt/Malnutrition Start: 05/02/19 14: 21 Text: Status: Complete Freq: Protocol: Document 05/02/19 14:21 ROSIE (Rec: 05/02/19 14:28 ROSIE [email or web address]) Nutritional Asmnt/Malnutrition Patient General Information Nutritional Screening High Risk Diagnosis CELLULITIS LOWER EXTREMITIES, DIABETES Pertinent Medical Hx/Surgical Hx DM, HEART DISEASE, HTN, OBESITY Subjective Information IA, HIGH RISK, CONSULT: DIABETIC, UNCONTROLLED PT DOWNGRADED TO MODERATE RISK PT IS A 53 YEAR OLD MALE ADMITTED ON 05/02 C/O SWOLEN FEET AND LEGS WITH FEVER. PT HAS HAD DIFFICULTY WALKING LATELY. SPOKE WITH MI AT BEDSIDE AFTER LUNCH. PT WAS PLEASANT AND STATED HE ENJOYED BREAKFAST AND LUNCH, EATING 100%. DISCUSSED PT ROUTINE AT HOME CONCERNING DM CARE AND MANAGEMENT. PT STATED HE EATS OUT, DOES NOT COOK. PROVIDED PT WITH EDUCATION MATERIALS AND DISCUSSED HEALTHIER CHOICES WHEN EATING OUT TO MANAGE HID DM. PT WAS ACCEPTING OF THE INFORMATION AND VERBALIZED UNDERSTANDING. PT WAS NOT INTERESTED IN ANY OUTPATIENT DM EDUCATION/ COUNSELING. HT: 61 WT: 280 LB (127.27 KG) ABW: 218 LB (99.10) BMI: 36.94 (OBESE, CLASS II) GI: WNL, SOFT, LARGE, NON- TENDER BM: NOT NOTED I/O: 100/NOT NOTED SKIN: WARM, DRY, ELASTIC, FAIZAN LOWER EXTREMITIES REDENNED WITH PAIN AND SWELLING WOUND: ABD OPEN SCAB, RT FOOT 5TH TOE WOUND ANDREA: 22 DIET ORDER: [facility] ESTIMATED ENERGY NEEDS: (OBESE II, ABW) 1537-2864 KCALS (20-25 KCALS/ KG) 79-89G PRO (0.8-0.9 G/KG) 3400-4000ML (35-40 ML/KG) Current Diet Order/ Nutrition Support [facility] Pertinent Medications INS-SS, GLUCOPHAGE Pertinent Labs 05/02: NA 134, GLUCOSE 229, ALB 3.2 POC GLUCOSE (LAST 24 HOURS): 262,296,236 Nutritional Hx/Data Height 1.85 m Height (Calculated Centimeters) 185.4 Current Weight (lbs) 127.006 kg Weight (Calculated Kilograms) 127.0 Weight (Calculated Grams) 401680.9 Desha Body Weight 184 LB % Desha Body Weight 152 Body Mass Index (BMI) 36.9 Weight Status Obese GI Symptoms GI Symptoms None Last BM NOT NOTED Usual diet at home REGULAR Skin Integrity/Comment: SKIN: WARM, DRY, ELASTIC, FAIZAN LOWER EXTREMITIES REDENNED WITH PAIN AND SWELLING WOUND: ABD OPEN SCAB, RT FOOT 5TH TOE WOUND ANDREA: 22 Current %PO Good (75-100%) Estimated Nutritional Goals BEE in Kcals: Adj wt of IBW Calories/Kcals/Kg 20-25 Kcals Calculated 5155-3351 Protein: Adj wt of IBW Protein g/k.8-0.9 Protein Calculated 79-89 GM Fluid: ml 3400-4000ML (35-40 ML/KG) Nutritional Problem 3. Problem Problem LIMITED ADHERENCE TO NUTRITION -RELATED RECOMMENDATIONS Etiology R/T DM Signs/Symptoms: AEB PT SELF REPORT OF NOT FOLLOWING ANY DIET EVEN THOUGH HE HAS HAD DM EEUCATION PREVIOUSLY 2. Problem Problem OBESITY Etiology R/T EXCESSIVE ENERGY INTAKE Signs/Symptoms: AEB BMI 36.94 AND PT SELF REPORT OF EATING A LOT OF FAST FOOD 1. Problem Problem ALTERED NUTRITION RELATED LAB Etiology R/T ENDOCRINE DYSFUNCTION Signs/Symptoms: AEB HX DM AND GLUCOSE 229-296 Malnutrition Related to Morbid Obesity Malnutrition related to morbid obesity No Intervention/Recommendation Comments 1. CONTINUE WITH [facility] 45GM DIET ORDERED. 2. CONTINUE ANTIHYPERGLYCEMIC MEDICATIONS PER MD ORDER. 3. PROVIDE PT WITH DM EDUCATION AND EDUCATION MATERIALS TO TAKE HOME ( COMPLETED). Expected Outcomes/Goals Expected Outcomes/Goals 1. PO INTAKE TO MEET > 75% OF NUTRITIONAL NEEDS. 2. MONITOR PO INTAKE, WT, NUTRITION RELATED LABS AND SKIN INTEGRITY. 3. NUTRITION RELATED LABS TO TREND WNL IN 3-5 DAYS. 4. F/U MODERATE RISK IN 3-5 DAYS 05/05-05/07
[2019-05-10] MEDS: Insulin Glargine 100 units/ml 10ml Vial SUBQ SCH (21:30)
--- NOTE | 2019-05-11 00:12 | Consultation ---
DATE OF CONSULTATION: 05/10/2019 SURGICAL CONSULTATION NOTE TIME: 8:52 p.m. HISTORY OF PRESENT ILLNESS: The patient is a 53-year-old male, chronically ill, admitted to the Emergency Room for swollen feet and legs with fever, history of diabetes, heart disease, status post heart surgery with a valve, hypertension, obesity. He has also had an umbilical hernia as well, has as difficulty walking recently. On workup, he was found to have a white blood cell count of 20.1, cellulitis of both lower extremities, diabetes, chronic congestive heart failure, hypertension, fever, leukocytosis and subsequently admitted to the hospital. The patient was admitted by Dr. Dubon on 05/02/2019. Surgical consultation was requested for evaluation of leg wounds and possible surgery. ALLERGIES: The patient has no known drug allergies. MEDICATIONS: See medication reconciliation form. SOCIAL HISTORY: Distant history of smoking. No recent alcohol or recreational drug use recently. FAMILY HISTORY: Noncontributory. REVIEW OF SYSTEMS: Denies any chest pain, shortness of breath or urinary-type symptoms. He denies any GI symptoms, complains of lower extremity infection wounds. PHYSICAL EXAMINATION: GENERAL: He is 6 feet 1 inch, 288 pounds for a BMI of 38. VITAL SIGNS: He is afebrile. His vital signs are otherwise stable. HEENT AND NECK: Within normal limits. He has no JVD or carotid bruits, neck mass or lymphadenopathy. CHEST: Clear to auscultation bilaterally. He has a midline sternotomy incision, which is well healed. CARDIOVASCULAR: Regular rhythm and rate. ABDOMEN: Soft, nontender, nondistended. He has a large umbilical hernia, which has some denuded skin, but no significant drainage. EXTREMITIES: The patient has right fifth toe gangrene. There is some drainage and disarticulated at the joint site. The right fifth toe is partially dislocated with exposed tendons and bone, with purulent drainage and gangrene of the edges. The patient has a left plantar foot ulcer. When expressed, there is some serous drainage from the site and he has a left posterior calf area of fluctuance measuring about 3 x 2 cm in size. He has bounding pedal pulses bilaterally. The feet are warm. LABORATORY DATA: His white blood cell count is 12.8 today, down from 05/07/2019 where the white count was 15. H and H are 13.9 and 40.7 and platelet count 336. His coags: D-dimer is 781. PTT is 25.1. INR and PT are normal. His chemistries: His sodium is 131, chloride 96. The rest of Chem-7 is otherwise unremarkable, except for glucose 161. IMAGING STUDIES: The lower extremity MRI reveals area of soft tissue edema of the forefoot and mid foot, most pronounced along the plantar region of the third, fourth, and fifth phalanges with heterogeneous density and possible phlegmonous changes seen in these regions. Findings are likely for an infectious process and cellulitis. Assessment for discrete abscesses were limited due to lack of IV contrast. Focal osseous edema seen involving the fifth proximal phalanx or possibly the head of the fifth metatarsal concerning for osteomyelitis in this region. Note, additional minimal edema and focal osteomyelitis involving the fourth proximal phalanx cannot be excluded. Additional areas of edema within the deeper fascia and muscle planes, likely due to infectious inflammatory process. The foot x-ray reveals chronic bony changes as above, soft tissue swelling, no acute bony abnormalities. Bone scan reveals increased uptake within the right forefoot on flow, blood pool and delayed images. Osteomyelitis in this region cannot be excluded and further assessment with MRI is recommended. Arterial ultrasound study shows mild to moderate atherosclerotic vascular disease. No significant focal stenosis. Triphasic waveforms throughout. JONNY on the right, 1.1. Left JONNY is 1.2. Chest x-ray, 05/01/2019, showed accentuation of the interstitial lung markings, marginal degree of congestion cannot be excluded, no focal consolidation, evidence of prior median sternotomy. MEDICATIONS: The patient is on acetaminophen, amlodipine, Norvasc, Lovenox subcutaneous, insulin, lisinopril, metformin, vancomycin, Bactroban, Zosyn. IMPRESSION/PLAN: The patient with right fifth toe gangrene, purulent drainage and partial dislocation disarticulation from the joint site. This is probably not salvageable. The patient would benefit from a right fifth toe amputation as the healing potential is very poor, even though he has good inflow arterial supply. The patient probably has osteomyelitis of this site because of exposed bone and tendons and muscle. He agrees to the right fifth toe amputation. The patient has also a left plantar foot ulcer, which probably needs to be debrided, is unstageable at this time. He also has a left posterior calf area of fluctuance, probably a phlegmon versus abscess and is tender and erythematous and would benefit from incision and drainage, debridement. We will try to schedule this for Wednesday, if possible. JOB# [id number]
[2019-05-11] MEDS: INSULIN LISPRO SLIDING SCALE 100 UNITS/ML UNIT SUBQ SCH ×4 (06:39→20:30)
[2019-05-11 08:03] LABS: INR 0.99 (0.5-1.4)
[2019-05-11] MEDS: Vitamin D3 2,000 IU SGL PO SCH (08:29)
[2019-05-11] MEDS: Pantoprazole 40 mg EC Tab PO SCH (08:32)
[2019-05-11] MEDS: Venelex 60gm Tube TP SCH (08:35)
[2019-05-11] MEDS: Enoxaparin 40 mg/0.4 mL 0.4mL Syr SUBQ SCH (08:37)
[2019-05-11] MEDS: Hydrocodone/APAP 5mg/325mg Tab PO PRN ×2 (08:42→16:57)
--- NOTE | 2019-05-11 12:35 | Diagnostic Imaging Report ---
CHEST X-RAY: AP view INDICATION: PICC line placement COMPARISON: Chest x-ray 05/01/2019 FINDINGS: Right PICC line has been placed with tip in SVC. Mild increased interstitial lung markings are seen with no focal consolidation or effusions. Heart size is normal. There is evidence of prior median sternotomy. IMPRESSION: Interval right PICC line placement with tip in the SVC. Mild increased interstitial lung markings, nonspecific.
--- NOTE | 2019-05-11 13:27 | Infectious Disease Prog Note ---
Infectious Disease Subjective - Review of Systems Service Date: 05/11/19 Subjective: There is no new change, no fever. Infectious Disease Objective - Results Result Diagrams: 05/09/19 08:00 05/09/19 08:00 Recent Labs: Laboratory Last Values WBC 12.8 Th/cmm (4.8-10.8) H 05/09/19 08:00 RBC 4.41 Mil/cmm (4.30-5.70) 05/09/19 08:00 Hgb 13.9 gm/dL (12-16) 05/09/19 08:00 Hct 40.7 % (41.0-60) L 05/09/19 08:00 MCV 92.5 fl (80-99) 05/09/19 08:00 MCH 31.4 pg (26.0-30.0) H 05/09/19 08:00 MCHC Differential 34.0 pg (28.0-36.0) 05/09/19 08:00 RDW 12.4 % (11.5-20.0) 05/09/19 08:00 Plt Count 336 Th/cmm (150-400) 05/09/19 08:00 MPV 7.1 fl 05/09/19 08:00 Add Manual Diff YES 05/07/19 15:18 Neutrophils % 69.6 % (40.0-80.0) 05/09/19 08:00 Band Neutrophils % 2 % (0-10) 05/07/19 15:18 Lymphocytes % 19.9 % (20.0-50.0) L 05/09/19 08:00 Monocytes % 6.3 % (2.0-10.0) 05/09/19 08:00 Eosinophils % 4.1 % (0.0-5.0) 05/09/19 08:00 Basophils % 0.1 % (0.0-2.0) 05/09/19 08:00 Neutrophils (Manual) 70 % (40-80) 05/07/19 15:18 Lymphocytes 19 % (20-50) L 05/07/19 15:18 Monocytes 3 % (2-10) 05/07/19 15:18 Eosinophils 5 % (0-5) 05/07/19 15:18 Basophils 1 % (0-3) 05/07/19 15:18 Platelet Estimate ADEQUATE (NORMAL) 05/07/19 15:18 ESR 67 mm/hr (0-20) H 05/05/19 06:30 PT 10.3 SECONDS (9.5-11.5) 05/11/19 07:35 INR 0.99 (0.5-1.4) 05/11/19 07:35 PTT (Actin FS) 25.1 SECONDS (26.0-38.0) L 05/01/19 22:50 D-Dimer 772 ng/mL (100-400) H 05/10/19 20:10 Sodium 131 mEq/L (136-145) L 05/09/19 08:00 Potassium 3.8 mEq/L (3.5-5.1) 05/09/19 08:00 Chloride 96 mEq/L (98-107) L 05/09/19 08:00 Carbon Dioxide 25.8 mEq/L (21.0-31.0) 05/09/19 08:00 Anion Gap 13.0 (7.0-16.0) 05/09/19 08:00 BUN 10 mg/dL (7-25) 05/09/19 08:00 Creatinine 0.8 mg/dL (0.7-1.3) 05/09/19 08:00 Est GFR ( Amer) > 60.0 ml/min (>90) 05/09/19 08:00 Est GFR (Non-Af Amer) > 60.0 ml/min 05/09/19 08:00 BUN/Creatinine Ratio 12.5 05/09/19 08:00 Glucose 161 mg/dL (70-105) H 05/09/19 08:00 POC Glucose 167 MG/DL (70 - 105) H 05/11/19 12:29 Whole Bld Lactic Acid 1.76 mmol/L (0.60-1.99) 05/01/19 22:50 Calcium 9.4 mg/dL (8.6-10.3) 05/09/19 08:00 Total Bilirubin 0.4 mg/dL (0.3-1.0) 05/07/19 15:18 AST 25 U/L (13-39) 05/07/19 15:18 ALT 24 U/L (7-52) 05/07/19 15:18 Alkaline Phosphatase 62 U/L (34-104) 05/07/19 15:18 Troponin I 0.02 ng/mL (0.01-0.05) 05/01/19 22:50 C-Reactive Protein 13.9 mg/dL (0.0-0.9) H 05/05/19 06:30 B-Natriuretic Peptide 100.0 pg/mL (5.0-100.0) 05/01/19 22:50 Total Protein 7.7 gm/dL (6.0-8.3) 05/07/19 15:18 Albumin 3.2 gm/dL (4.2-5.5) L 05/07/19 15:18 Globulin 4.5 gm/dL 05/07/19 15:18 Albumin/Globulin Ratio 0.7 (1.0-1.8) L 05/07/19 15:18 Triglycerides 97 mg/dL (<150) 05/01/19 22:50 Cholesterol 125 mg/dL (<200) 05/01/19 22:50 LDL Cholesterol Direct 69 mg/dL (75-193) L 05/01/19 22:50 HDL Cholesterol 46 mg/dL (23-92) 05/01/19 22:50 TSH 0.76 uIU/ml (0.34-5.60) 05/01/19 22:50 Urine Source CLEAN C 05/01/19 20:56 Urine Color YELLOW 05/01/19 20:56 Urine Clarity CLEAR (CLEAR) 05/01/19 20:56 Urine pH 6.5 (4.6 - 8.0) 05/01/19 20:56 Ur Specific [place] 1.010 (1.005-1.030) 05/01/19 20:56 Urine Protein NEGATIVE mg/dL (NEGATIVE) 05/01/19 20:56 Urine Glucose (UA) >=1000 mg/dL (NEGATIVE) H 05/01/19 20:56 Urine Ketones NEGATIVE mg/dL (NEGATIVE) 05/01/19 20:56 Urine Blood NEGATIVE (NEGATIVE) 05/01/19 20:56 Urine Nitrate NEGATIVE (NEGATIVE) 05/01/19 20:56 Urine Bilirubin NEGATIVE (NEGATIVE) 05/01/19 20:56 Urine Urobilinogen 1.0 E.U./dL (0.2 - 1.0) 05/01/19 20:56 Ur Leukocyte Esterase NEGATIVE (NEGATIVE) 05/01/19 20:56 Urine RBC NONE SEEN /hpf (0-5) 05/01/19 20:56 Urine WBC 0-2 /hpf (0-5) 05/01/19 20:56 Ur Epithelial Cells RARE /lpf (FEW) 05/01/19 20:56 Urine Bacteria OCCASIONAL /hpf (NONE SEEN) 05/01/19 20:56 Vancomycin Trough 19.3 ug/mL (5-10) H 05/09/19 08:00 Random Vancomycin 10.7 ug/mL (5.0-40.0) 05/05/19 15:03 Urine Opiates Screen NEGATIVE (NEGATIVE) 05/02/19 14:00 Urine Methadone Screen NEGATIVE (NEGATIVE) 05/02/19 14:00 Ur Barbiturates Screen NEGATIVE (NEGATIVE) 05/02/19 14:00 Ur Tricyclics Screen NEGATIVE (NEGATIVE) 05/02/19 14:00 Ur Phencyclidine Scrn NEGATIVE (NEGATIVE) 05/02/19 14:00 Amphetamines Screen POSITIVE (NEGATIVE) H 05/02/19 14:00 U Methamphetamines Scrn NEGATIVE (NEGATIVE) 05/02/19 14:00 U Benzodiazepines Scrn NEGATIVE (NEGATIVE) 05/02/19 14:00 U Cocaine Metab Screen NEGATIVE (NEGATIVE) 05/02/19 14:00 U Cannabinoids Screen NEGATIVE (NEGATIVE) 05/02/19 14:00 RPR NONREACTIVE (NONREACTIVE) 05/01/19 22:50 - Physical Exam Vitals and I&O: Vital Signs Temp 98.1 F 05/11/19 08:00 Pulse 81 05/11/19 08:34 Resp 18 05/11/19 12:00 BP 132/77 05/11/19 08:34 Pulse Ox 95 05/11/19 08:00 Intake & Output 05/10/19 05/11/19 05/11/19 18:59 06:59 18:59 Intake Total 1600 690 Output Total 1400 1500 Balance 200 -810 Weight (lbs) 130.635 kg 130.635 kg Intake: Intake, IV Amount 600 450 Piperacillin Sodium/ 100 200 Tazobact 4.5 gm In Sodium Chloride 0.9% 100 ml @ 100 mls/hr IV Q8HR [facility] Rx #:[id number] Vancomycin HCl 1.25 gm In 500 250 Sodium Chloride 0.9% 250 ml @ 165 mls/hr IV Q8H [facility] Rx#:[id number] Oral 1000 240 Output: Urine 1400 1500 Other: # Bowel Movements 0 1 Weight Source Bedscale Bedscale Active Medications: Current Medications Acetaminophen (Tylenol) 650 mg PO Q4HR PRN PRN Reason: Pain or Fever >101 Stop: 07/01/19 01:28 Last Admin: 05/05/19 17:55 Dose: 650 mg Acetaminophen/Hydrocodone Bitart ([place] 5mg/325mg) 1 tab PO Q6H PRN PRN Reason: Severe Pain Stop: 07/03/19 11:51 Last Admin: 05/11/19 08:42 Dose: 1 tab Amlodipine Besylate (Norvasc) 10 mg PO DAILY [facility] Stop: 07/02/19 08:59 Last Admin: 05/11/19 08:34 Dose: 10 mg [place] Oil/Tristanian Balsam/Trypsin (Venelex) 1 appl TP DAILY [facility] Stop: 07/09/19 17:14 Last Admin: 05/11/19 08:35 Dose: 1 appl Enoxaparin Sodium (Lovenox) 40 mg SUBQ DAILY [facility] Stop: 07/01/19 08:59 Last Admin: 05/11/19 08:37 Dose: 40 mg Piperacillin Sod/Tazobactam (Sod 4.5 gm/ Sodium Chloride) 100 mls @ 100 mls/hr IV Q8HR [facility] Stop: 07/03/19 20:59 Last Admin: 05/11/19 13:02 Dose: 100 mls/hr Vancomycin HCl 1.25 gm/ Sodium (Chloride) 250 mls @ 165 mls/hr IV Q8H [facility] Stop: 07/07/19 08:59 Last Admin: 05/11/19 09:49 Dose: 165 mls/hr Insulin Glargine (Lantus Insulin) 34 units SUBQ HS [facility] Stop: 07/05/19 20:59 Last Admin: 05/10/19 21:30 Dose: 34 units Insulin Human Lispro (Humalog Insulin Sliding Scale) 0 units SUBQ [facility]; Protocol Stop: 07/01/19 07:29 Last Admin: 05/11/19 12:36 Dose: 1,000 units Lisinopril (Zestril) 5 mg PO DAILY [facility] Stop: 07/02/19 08:59 Last Admin: 05/11/19 08:34 Dose: 5 mg Loratadine (Claritin) 10 mg PO DAILY [facility] Stop: 07/02/19 08:59 Last Admin: 05/11/19 08:32 Dose: 10 mg Metformin HCl (Glucophage) 1,000 mg PO BIDWM [facility] Stop: 07/01/19 07:59 Last Admin: 05/11/19 08:29 Dose: 1,000 mg Metoprolol Tartrate (Lopressor) 100 mg PO DAILY [facility] Stop: 07/02/19 08:59 Last Admin: 05/11/19 08:33 Dose: 100 mg Miscellaneous (Vancomycin Iv Per Pharmacy) 1 ea PRN [facility] Stop: 07/03/19 14:29 Miscellaneous (Probiotic Screen) 1 [facility] PRN PRN PRN Reason: PROTOCOL Stop: 07/04/19 14:53 Montelukast Sodium (Singulair) 10 mg PO HS [facility] Stop: 07/02/19 20:59 Last Admin: 05/10/19 21:34 Dose: 10 mg Mupirocin (Bactroban Oint) 1 appl TP BID [facility] Stop: 07/02/19 08:59 Last Admin: 05/11/19 08:35 Dose: 1 appl Pantoprazole Sodium (Protonix) 40 mg PO QDAC [facility] Stop: 07/02/19 07:29 Last Admin: 05/11/19 08:32 Dose: 40 mg Simvastatin (Zocor) 20 mg PO HS [facility]; Protocol Stop: 07/02/19 20:59 Last Admin: 05/10/19 21:31 Dose: 20 mg Vitamin D (Vitamin D3) 2,000 iu PO DAILY [facility] Stop: 07/02/19 08:59 Last Admin: 05/11/19 08:29 Dose: 2,000 iu General: no acute distress, well developed, well nourished HEENT: atraumatic, normocephalic, PERRLA, EOMI Neck: supple, no thyromegaly, no rigid Cardiovascular: S1S2, regular, no irregular Lungs: clear to auscultation bilaterally, clear to percussion Abdomen: soft, no tender, no distended, no hepatomegaly Extremities: other (Right foot swelling and erythema of the forefoot laterally.) , no cyanosis, no clubbing, no edema Neurological: awake, alert, oriented Skin: intact Infectious Disease Assmt/Plan - Assessment Assessment: 1. Leukocytosis, suspect sepsis. Blood cultures are negative so far. 2. Right foot abscess, cellulitis, may have osteomyelitis. 3. Diabetes mellitus type 1. 4. Left foot callus. 5. Ventral hernia or umbilical hernia. 6. Abdominal wall wound without any sign of infection. 7. Obesity. - Plan Plan: Continue vancO IV and Zosyn. plan to do surgery on the patient on wednesday. Depending on the culture report may decide final antibiotic therapy for 6 weeks. Patient is clinically improving. I will see prn basis. please call me for any changes. Nutritional Asmnt/Malnutr-PDOC - Dietary Evaluation Malnutrition Findings (Please click <Entered> for more info): Nutritional Asmnt/Malnutrition Start: 05/02/19 14: 21 Text: Status: Complete Freq: Protocol: Document 05/02/19 14:21 ROSIE (Rec: 05/02/19 14:28 ROSIE [id number]) Nutritional Asmnt/Malnutrition Patient General Information Nutritional Screening High Risk Diagnosis CELLULITIS LOWER EXTREMITIES, DIABETES Pertinent Medical Hx/Surgical Hx DM, HEART DISEASE, HTN, OBESITY Subjective Information IA, HIGH RISK, CONSULT: DIABETIC, UNCONTROLLED PT DOWNGRADED TO MODERATE RISK PT IS A 53 YEAR OLD MALE ADMITTED ON 05/02 C/O SWOLEN FEET AND LEGS WITH FEVER. PT HAS HAD DIFFICULTY WALKING LATELY. SPOKE WITH TX AT BEDSIDE AFTER LUNCH. PT WAS PLEASANT AND STATED HE ENJOYED BREAKFAST AND LUNCH, EATING 100%. DISCUSSED PT ROUTINE AT HOME CONCERNING DM CARE AND MANAGEMENT. PT STATED HE EATS OUT, DOES NOT COOK. PROVIDED PT WITH EDUCATION MATERIALS AND DISCUSSED HEALTHIER CHOICES WHEN EATING OUT TO MANAGE HID DM. PT WAS ACCEPTING OF THE INFORMATION AND VERBALIZED UNDERSTANDING. PT WAS NOT INTERESTED IN ANY OUTPATIENT DM EDUCATION/ COUNSELING. HT: 61 WT: 280 LB (127.27 KG) ABW: 218 LB (99.10) BMI: 36.94 (OBESE, CLASS II) GI: WNL, SOFT, LARGE, NON- TENDER BM: NOT NOTED I/O: 100/NOT NOTED SKIN: WARM, DRY, ELASTIC, FAIZAN LOWER EXTREMITIES REDENNED WITH PAIN AND SWELLING WOUND: ABD OPEN SCAB, RT FOOT 5TH TOE WOUND ANDREA: 22 DIET ORDER: [facility] 45GM ESTIMATED ENERGY NEEDS: (OBESE II, ABW) 6469-0823 KCALS (20-25 KCALS/ KG) 79-89G PRO (0.8-0.9 G/KG) 3400-4000ML (35-40 ML/KG) Current Diet Order/ Nutrition Support [facility] 45[facility] Pertinent Medications INS-SS, GLUCOPHAGE Pertinent Labs 05/02: NA 134, GLUCOSE 229, ALB 3.2 POC GLUCOSE (LAST 24 HOURS): 262,296,236 Nutritional Hx/Data Height 1.85 m Height (Calculated Centimeters) 185.4 Current Weight (lbs) 127.006 kg Weight (Calculated Kilograms) 127.0 Weight (Calculated Grams) 340626.9 [place] Body Weight 184 LB % [place] Body Weight 152 Body Mass Index (BMI) 36.9 Weight Status Obese GI Symptoms GI Symptoms None Last BM NOT NOTED Usual diet at home REGULAR Skin Integrity/Comment: SKIN: WARM, DRY, ELASTIC, FAIZAN LOWER EXTREMITIES REDENNED WITH PAIN AND SWELLING WOUND: ABD OPEN SCAB, RT FOOT 5TH TOE WOUND ANDREA: 22 Current %PO Good (75-100%) Estimated Nutritional Goals BEE in Kcals: Adj wt of IBW Calories/Kcals/Kg 20-25 Kcals Calculated Protein: Adj wt of IBW Protein g/k.8-0.9 Protein Calculated 79-89 GM Fluid: ml 3400-4000ML (35-40 ML/KG) Nutritional Problem 3. Problem Problem LIMITED ADHERENCE TO NUTRITION -RELATED RECOMMENDATIONS Etiology R/T DM Signs/Symptoms: AEB PT SELF REPORT OF NOT FOLLOWING ANY DIET EVEN THOUGH HE HAS HAD DM EEUCATION PREVIOUSLY 2. Problem Problem OBESITY Etiology R/T EXCESSIVE ENERGY INTAKE Signs/Symptoms: AEB BMI 36.94 AND PT SELF REPORT OF EATING A LOT OF FAST FOOD 1. Problem Problem ALTERED NUTRITION RELATED LAB Etiology R/T ENDOCRINE DYSFUNCTION Signs/Symptoms: AEB HX DM AND GLUCOSE 229-296 Malnutrition Related to Morbid Obesity Malnutrition related to morbid obesity No Intervention/Recommendation Comments 1. CONTINUE WITH [facility] 45GM DIET ORDERED. 2. CONTINUE ANTIHYPERGLYCEMIC MEDICATIONS PER MD ORDER. 3. PROVIDE PT WITH DM EDUCATION AND EDUCATION MATERIALS TO TAKE HOME ( COMPLETED). Expected Outcomes/Goals Expected Outcomes/Goals 1. PO INTAKE TO MEET > 75% OF NUTRITIONAL NEEDS. 2. MONITOR PO INTAKE, WT, NUTRITION RELATED LABS AND SKIN INTEGRITY. 3. NUTRITION RELATED LABS TO TREND WNL IN 3-5 DAYS. 4. F/U MODERATE RISK IN 3-5 DAYS 05/05-05/07
[2019-05-11] MEDS: Insulin Glargine 100 units/ml 10ml Vial SUBQ SCH (20:29)
--- NOTE | 2019-05-11 23:32 | Internal Medicine Prog Note ---
Internal Medicine Subjective - Subjective Service Date: 05/11/19 Patient seen and examined:: with staff (THE PATIENT STILL HAS PAIN.HIS SURGERY IS CANCELLED BECAUSE HIS INSURANCE DENILED HIS STAY IN THE HOSPITAL FROM .) Patient is:: awake, verbal, in bed, talking Per staff patient has:: no adverse event Internal Medicine Objective - Results Result Diagrams: 05/09/19 08:00 05/09/19 08:00 Recent Labs: Laboratory Last Values WBC 12.8 Th/cmm (4.8-10.8) H 05/09/19 08:00 RBC 4.41 Mil/cmm (4.30-5.70) 05/09/19 08:00 Hgb 13.9 gm/dL (12-16) 05/09/19 08:00 Hct 40.7 % (41.0-60) L 05/09/19 08:00 MCV 92.5 fl (80-99) 05/09/19 08:00 MCH 31.4 pg (26.0-30.0) H 05/09/19 08:00 MCHC Differential 34.0 pg (28.0-36.0) 05/09/19 08:00 RDW 12.4 % (11.5-20.0) 05/09/19 08:00 Plt Count 336 Th/cmm (150-400) 05/09/19 08:00 MPV 7.1 fl 05/09/19 08:00 Add Manual Diff YES 05/07/19 15:18 Neutrophils % 69.6 % (40.0-80.0) 05/09/19 08:00 Band Neutrophils % 2 % (0-10) 05/07/19 15:18 Lymphocytes % 19.9 % (20.0-50.0) L 05/09/19 08:00 Monocytes % 6.3 % (2.0-10.0) 05/09/19 08:00 Eosinophils % 4.1 % (0.0-5.0) 05/09/19 08:00 Basophils % 0.1 % (0.0-2.0) 05/09/19 08:00 Neutrophils (Manual) 70 % (40-80) 05/07/19 15:18 Lymphocytes 19 % (20-50) L 05/07/19 15:18 Monocytes 3 % (2-10) 05/07/19 15:18 Eosinophils 5 % (0-5) 05/07/19 15:18 Basophils 1 % (0-3) 05/07/19 15:18 Platelet Estimate ADEQUATE (NORMAL) 05/07/19 15:18 ESR 67 mm/hr (0-20) H 05/05/19 06:30 PT 10.3 SECONDS (9.5-11.5) 05/11/19 07:35 INR 0.99 (0.5-1.4) 05/11/19 07:35 PTT (Actin FS) 25.1 SECONDS (26.0-38.0) L 05/01/19 22:50 D-Dimer 772 ng/mL (100-400) H 05/10/19 20:10 Sodium 131 mEq/L (136-145) L 05/09/19 08:00 Potassium 3.8 mEq/L (3.5-5.1) 05/09/19 08:00 Chloride 96 mEq/L (98-107) L 05/09/19 08:00 Carbon Dioxide 25.8 mEq/L (21.0-31.0) 05/09/19 08:00 Anion Gap 13.0 (7.0-16.0) 05/09/19 08:00 BUN 10 mg/dL (7-25) 05/09/19 08:00 Creatinine 0.8 mg/dL (0.7-1.3) 05/09/19 08:00 Est GFR ( Amer) > 60.0 ml/min (>90) 05/09/19 08:00 Est GFR (Non-Af Amer) > 60.0 ml/min 05/09/19 08:00 BUN/Creatinine Ratio 12.5 05/09/19 08:00 Glucose 161 mg/dL (70-105) H 05/09/19 08:00 POC Glucose 211 MG/DL (70 - 105) H 05/11/19 20:00 Whole Bld Lactic Acid 1.76 mmol/L (0.60-1.99) 05/01/19 22:50 Calcium 9.4 mg/dL (8.6-10.3) 05/09/19 08:00 Total Bilirubin 0.4 mg/dL (0.3-1.0) 05/07/19 15:18 AST 25 U/L (13-39) 05/07/19 15:18 ALT 24 U/L (7-52) 05/07/19 15:18 Alkaline Phosphatase 62 U/L (34-104) 05/07/19 15:18 Troponin I 0.02 ng/mL (0.01-0.05) 05/01/19 22:50 C-Reactive Protein 13.9 mg/dL (0.0-0.9) H 05/05/19 06:30 B-Natriuretic Peptide 100.0 pg/mL (5.0-100.0) 05/01/19 22:50 Total Protein 7.7 gm/dL (6.0-8.3) 05/07/19 15:18 Albumin 3.2 gm/dL (4.2-5.5) L 05/07/19 15:18 Globulin 4.5 gm/dL 05/07/19 15:18 Albumin/Globulin Ratio 0.7 (1.0-1.8) L 05/07/19 15:18 Triglycerides 97 mg/dL (<150) 05/01/19 22:50 Cholesterol 125 mg/dL (<200) 05/01/19 22:50 LDL Cholesterol Direct 69 mg/dL (75-193) L 05/01/19 22:50 HDL Cholesterol 46 mg/dL (23-92) 05/01/19 22:50 TSH 0.76 uIU/ml (0.34-5.60) 05/01/19 22:50 Urine Source CLEAN C 05/01/19 20:56 Urine Color YELLOW 05/01/19 20:56 Urine Clarity CLEAR (CLEAR) 05/01/19 20:56 Urine pH 6.5 (4.6 - 8.0) 05/01/19 20:56 Ur Specific [place] 1.010 (1.005-1.030) 05/01/19 20:56 Urine Protein NEGATIVE mg/dL (NEGATIVE) 05/01/19 20:56 Urine Glucose (UA) >=1000 mg/dL (NEGATIVE) H 05/01/19 20:56 Urine Ketones NEGATIVE mg/dL (NEGATIVE) 05/01/19 20:56 Urine Blood NEGATIVE (NEGATIVE) 05/01/19 20:56 Urine Nitrate NEGATIVE (NEGATIVE) 05/01/19 20:56 Urine Bilirubin NEGATIVE (NEGATIVE) 05/01/19 20:56 Urine Urobilinogen 1.0 E.U./dL (0.2 - 1.0) 05/01/19 20:56 Ur Leukocyte Esterase NEGATIVE (NEGATIVE) 05/01/19 20:56 Urine RBC NONE SEEN /hpf (0-5) 05/01/19 20:56 Urine WBC 0-2 /hpf (0-5) 05/01/19 20:56 Ur Epithelial Cells RARE /lpf (FEW) 05/01/19 20:56 Urine Bacteria OCCASIONAL /hpf (NONE SEEN) 05/01/19 20:56 Vancomycin Trough 19.3 ug/mL (5-10) H 05/09/19 08:00 Random Vancomycin 10.7 ug/mL (5.0-40.0) 05/05/19 15:03 Urine Opiates Screen NEGATIVE (NEGATIVE) 05/02/19 14:00 Urine Methadone Screen NEGATIVE (NEGATIVE) 05/02/19 14:00 Ur Barbiturates Screen NEGATIVE (NEGATIVE) 05/02/19 14:00 Ur Tricyclics Screen NEGATIVE (NEGATIVE) 05/02/19 14:00 Ur Phencyclidine Scrn NEGATIVE (NEGATIVE) 05/02/19 14:00 Amphetamines Screen POSITIVE (NEGATIVE) H 05/02/19 14:00 U Methamphetamines Scrn NEGATIVE (NEGATIVE) 05/02/19 14:00 U Benzodiazepines Scrn NEGATIVE (NEGATIVE) 05/02/19 14:00 U Cocaine Metab Screen NEGATIVE (NEGATIVE) 05/02/19 14:00 U Cannabinoids Screen NEGATIVE (NEGATIVE) 05/02/19 14:00 RPR NONREACTIVE (NONREACTIVE) 05/01/19 22:50 - Physical Exam Vitals and I&O: Vital Signs Temp 98.4 F 05/11/19 15:43 Pulse 78 05/11/19 15:43 Resp 18 05/11/19 20:00 BP 127/80 05/11/19 15:43 Pulse Ox 98 05/11/19 15:43 Intake & Output 05/11/19 05/11/19 05/12/19 06:59 18:59 06:59 Intake Total 690 1475 Output Total 1126 1725 Balance -810 -250 Weight (lbs) 130.635 kg 130.635 kg Intake: Intake, IV Amount 450 350 Piperacillin Sodium/ 200 100 Tazobact 4.5 gm In Sodium Chloride 0.9% 100 ml @ 100 mls/hr IV Q8HR [facility] Rx #:[id number] Vancomycin HCl 1.25 gm In 250 250 Sodium Chloride 0.9% 250 ml @ 165 mls/hr IV Q8H [facility] Rx#:[id number] Oral 240 1125 Output: Urine 1500 1725 Other: # Bowel Movements 1 Weight Source Bedscale Bedscale Active Medications: Current Medications Acetaminophen (Tylenol) 650 mg PO Q4HR PRN PRN Reason: Pain or Fever >101 Stop: 07/01/19 01:28 Last Admin: 05/05/19 17:55 Dose: 650 mg Acetaminophen/Hydrocodone Bitart ([place] 5mg/325mg) 1 tab PO Q6H PRN PRN Reason: Severe Pain Stop: 07/03/19 11:51 Last Admin: 05/11/19 16:57 Dose: 1 tab Amlodipine Besylate (Norvasc) 10 mg PO DAILY [facility] Stop: 07/02/19 08:59 Last Admin: 05/11/19 08:34 Dose: 10 mg [place] Oil/[place] Balsam/Trypsin (Venelex) 1 appl TP DAILY [facility] Stop: 07/09/19 17:14 Last Admin: 05/11/19 08:35 Dose: 1 appl Enoxaparin Sodium (Lovenox) 40 mg SUBQ DAILY [facility] Stop: 07/01/19 08:59 Last Admin: 05/11/19 08:37 Dose: 40 mg Piperacillin Sod/Tazobactam (Sod 4.5 gm/ Sodium Chloride) 100 mls @ 100 mls/hr IV Q8HR [facility] Stop: 07/03/19 20:59 Last Admin: 05/11/19 20:29 Dose: 100 mls/hr Vancomycin HCl 1.25 gm/ Sodium (Chloride) 250 mls @ 165 mls/hr IV Q8H [facility] Stop: 07/07/19 08:59 Last Admin: 05/11/19 16:28 Dose: 165 mls/hr Insulin Glargine (Lantus Insulin) 34 units SUBQ [facility] Stop: 07/05/19 20:59 Last Admin: 05/11/19 20:29 Dose: 34 units Insulin Human Lispro (Humalog Insulin Sliding Scale) 0 units SUBQ [facility]; Protocol Stop: 07/01/19 07:29 Last Admin: 05/11/19 20:30 Dose: 5 units Lisinopril (Zestril) 5 mg PO DAILY [facility] Stop: 07/02/19 08:59 Last Admin: 05/11/19 08:34 Dose: 5 mg Loratadine (Claritin) 10 mg PO DAILY [facility] Stop: 07/02/19 08:59 Last Admin: 05/11/19 08:32 Dose: 10 mg Metformin HCl (Glucophage) 1,000 mg PO BIDWM [facility] Stop: 07/01/19 07:59 Last Admin: 05/11/19 17:39 Dose: 1,000 mg Metoprolol Tartrate (Lopressor) 100 mg PO DAILY [facility] Stop: 07/02/19 08:59 Last Admin: 05/11/19 08:33 Dose: 100 mg Miscellaneous (Vancomycin Iv Per Pharmacy) 1 ea PRN [facility] Stop: 07/03/19 14:29 Miscellaneous (Probiotic Screen) 1 [facility] PRN PRN PRN Reason: PROTOCOL Stop: 07/04/19 14:53 Montelukast Sodium (Singulair) 10 mg PO HS [facility] Stop: 07/02/19 20:59 Last Admin: 05/11/19 20:29 Dose: 10 mg Mupirocin (Bactroban Oint) 1 appl TP BID [facility] Stop: 07/02/19 08:59 Last Admin: 05/11/19 17:55 Dose: 1 appl Pantoprazole Sodium (Protonix) 40 mg PO QDAC [facility] Stop: 07/02/19 07:29 Last Admin: 05/11/19 08:32 Dose: 40 mg Simvastatin (Zocor) 20 mg PO HS [facility]; Protocol Stop: 07/02/19 20:59 Last Admin: 05/11/19 20:29 Dose: 20 mg Vitamin D (Vitamin D3) 2,000 iu PO DAILY [facility] Stop: 07/02/19 08:59 Last Admin: 05/11/19 08:29 Dose: 2,000 iu General: alert HEENT: NC/AT, PERRLA, EOMI, anicteric sclerae, throat clear Neck: Supple, No JVD, No thyromegaly, +2 carotid pulse wo bruit, No LAD Lungs: CTAB Cardiovascular: RRR, Normal S1, Normal S2, without murmur Abdomen: soft, non-tender, non-distended Extremities: rash, ulcers stage 1 (MULTIPLE OPENED WOUND OF BOTH LOWER EXTREM. SKIN), other (THERE ARE THREE OPEND WOUNDS ON BOTH LWER EXTREM) Neurological: no change Internal Medicine Assmt/Plan - Assessment Assessment: 1.MULTIPLE OPENED WOUNDS ON LOWER EXTREM. 2.IDDM 3.SEPSIS 4.POSSIBLE OSTEOMYELITIS OF RT FOOT. - Plan Plan: CONTINUE ON CURRENT MEDICATION AND DIET.WILL CALL HIS INSURANCE IN AM. Nutritional Asmnt/Malnutr-PDOC - Dietary Evaluation Malnutrition Findings (Please click <Entered> for more info): Nutritional Asmnt/Malnutrition Start: 05/02/19 14: 21 Text: Status: Complete Freq: Protocol: Document 05/02/19 14:21 ROSIE (Rec: 05/02/19 14:28 ROSIE [id number]) Nutritional Asmnt/Malnutrition Patient General Information Nutritional Screening High Risk Diagnosis CELLULITIS LOWER EXTREMITIES, DIABETES Pertinent Medical Hx/Surgical Hx DM, HEART DISEASE, HTN, OBESITY Subjective Information IA, HIGH RISK, CONSULT: DIABETIC, UNCONTROLLED PT DOWNGRADED TO MODERATE RISK PT IS A 53 YEAR OLD MALE ADMITTED ON 05/02 C/O SWOLEN FEET AND LEGS WITH FEVER. PT HAS HAD DIFFICULTY WALKING LATELY. SPOKE WITH ND AT BEDSIDE AFTER LUNCH. PT WAS PLEASANT AND STATED HE ENJOYED BREAKFAST AND LUNCH, EATING 100%. DISCUSSED PT ROUTINE AT HOME CONCERNING DM CARE AND MANAGEMENT. PT STATED HE EATS OUT, DOES NOT COOK. PROVIDED PT WITH EDUCATION MATERIALS AND DISCUSSED HEALTHIER CHOICES WHEN EATING OUT TO MANAGE HID DM. PT WAS ACCEPTING OF THE INFORMATION AND VERBALIZED UNDERSTANDING. PT WAS NOT INTERESTED IN ANY OUTPATIENT DM EDUCATION/ COUNSELING. HT: 61 WT: 280 LB (127.27 KG) ABW: 218 LB (99.10) BMI: 36.94 (OBESE, CLASS II) GI: WNL, SOFT, LARGE, NON- TENDER BM: NOT NOTED I/O: 100/NOT NOTED SKIN: WARM, DRY, ELASTIC, FAIZAN LOWER EXTREMITIES REDENNED WITH PAIN AND SWELLING WOUND: ABD OPEN SCAB, RT FOOT 5TH TOE WOUND ANDREA: 22 DIET ORDER: [facility] [place] 45GM ESTIMATED ENERGY NEEDS: (OBESE II, ABW) [id number] KCALS (20-25 KCALS/ KG) 79-89G PRO (0.8-0.9 G/KG) 3400-4000ML (35-40 ML/KG) Current Diet Order/ Nutrition Support [facility] 45GM Pertinent Medications INS-SS, GLUCOPHAGE Pertinent Labs 05/02: NA 134, GLUCOSE 229, ALB 3.2 POC GLUCOSE (LAST 24 HOURS): 262,296,236 Nutritional Hx/Data Height 1.85 m Height (Calculated Centimeters) 185.4 Current Weight (lbs) 127.006 kg Weight (Calculated Kilograms) 127.0 Weight (Calculated Grams) 667445.9 [place] Body Weight 184 LB % [place] Body Weight 152 Body Mass Index (BMI) 36.9 Weight Status Obese GI Symptoms GI Symptoms None Last BM NOT NOTED Usual diet at home REGULAR Skin Integrity/Comment: SKIN: WARM, DRY, ELASTIC, FAIZAN LOWER EXTREMITIES REDENNED WITH PAIN AND SWELLING WOUND: ABD OPEN SCAB, RT FOOT 5TH TOE WOUND ANDREA: 22 Current %PO Good (75-100%) Estimated Nutritional Goals BEE in Kcals: Adj wt of IBW Calories/Kcals/Kg 20-25 Kcals Calculated 1795-8942 Protein: Adj wt of IBW Protein g/k.8-0.9 Protein Calculated 79-89 GM Fluid: ml 3400-4000ML (35-40 ML/KG) Nutritional Problem 3. Problem Problem LIMITED ADHERENCE TO NUTRITION -RELATED RECOMMENDATIONS Etiology R/T DM Signs/Symptoms: AEB PT SELF REPORT OF NOT FOLLOWING ANY DIET EVEN THOUGH HE HAS HAD DM EEUCATION PREVIOUSLY 2. Problem Problem OBESITY Etiology R/T EXCESSIVE ENERGY INTAKE Signs/Symptoms: AEB BMI 36.94 AND PT SELF REPORT OF EATING A LOT OF FAST FOOD 1. Problem Problem ALTERED NUTRITION RELATED LAB Etiology R/T ENDOCRINE DYSFUNCTION Signs/Symptoms: AEB HX DM AND GLUCOSE 229-296 Malnutrition Related to Morbid Obesity Malnutrition related to morbid obesity No Intervention/Recommendation Comments 1. CONTINUE WITH [facility] 45GM DIET ORDERED. 2. CONTINUE ANTIHYPERGLYCEMIC MEDICATIONS PER MD ORDER. 3. PROVIDE PT WITH DM EDUCATION AND EDUCATION MATERIALS TO TAKE HOME ( COMPLETED). Expected Outcomes/Goals Expected Outcomes/Goals 1. PO INTAKE TO MEET > 75% OF NUTRITIONAL NEEDS. 2. MONITOR PO INTAKE, WT, NUTRITION RELATED LABS AND SKIN INTEGRITY. 3. NUTRITION RELATED LABS TO TREND WNL IN 3-5 DAYS. 4. F/U MODERATE RISK IN 3-5 DAYS 05/05-05/07
[2019-05-12] MEDS: INSULIN LISPRO SLIDING SCALE 100 UNITS/ML UNIT SUBQ SCH ×3 (06:36→17:40)
[2019-05-12] MEDS: Vitamin D3 2,000 IU SGL PO SCH (08:17)
[2019-05-12] MEDS: Pantoprazole 40 mg EC Tab PO SCH (08:18)
[2019-05-12] MEDS: Venelex 60gm Tube TP SCH (08:19)
[2019-05-12] MEDS: Enoxaparin 40 mg/0.4 mL 0.4mL Syr SUBQ SCH (08:20)
[2019-05-12 10:45] LABS: % BASOPHILS 1.1 % (0.0-2.0); % EOSINOPHILS 3.3 % (0.0-5.0); % MONOCYTES 8.1 % (2.0-10.0); % NEUTROPHILS 70.5 % (40.0-80.0); BASOPHILE ABSOLUTE 0.1 Th/cumm (0-0.2); EOSINOPHILE ABSOLUTE 0.4 Th/cmm (0.1-0.4); HEMATOCRIT 39.3 % (41.0-60); HEMOGLOBIN 13.2 gm/dL (12-16); LYMPHOCYTE ABSOLUTE 2.1 Th/cmm (1.5-3.0); MEAN CELL VOLUME 92.3 fl (80-99); MEAN CORPUSCULAR HEMOGLOBIN 30.9 pg (26.0-30.0); MEAN CORPUSCULAR HGB CONC 33.4 pg (28.0-36.0); NEUTROPHILE ABSOLUTE 8.7 Th/cmm (1.8-8.0); PLATELET COUNT 372 Th/cmm (150-400); RED BLOOD COUNT 4.26 Mil/cmm (4.30-5.70); RED CELL DISTRIBUTION WIDTH 12.7 % (11.5-20.0); WHITE BLOOD COUNT 12.3 Th/cmm (4.8-10.8)
[2019-05-12 10:51] LABS: BUN - UREA NITROGEN 12 mg/dL (7-25); CALCIUM SERUM 9.5 mg/dL (8.6-10.3); CARBON DIOXIDE 27.8 mEq/L (21.0-31.0); CHLORIDE 99 mEq/L (98-107); GFR AFRICAN-AMERICAN > 60.0 ml/min (>90); GFR NON AFRICAN-AMERICAN > 60.0 ml/min; GLUCOSE 214 mg/dL (70-105); POTASSIUM SERUM 3.8 mEq/L (3.5-5.1); SODIUM SERUM 135 mEq/L (136-145)
== END 2019-05-12 17:30 | disposition short-term general hospital (02) | DRG 720 ==
LOC: ER 21:45 → TELE 05-02 00:35
PROVIDERS: ADMIT Family Medicine; ATTEND Family Medicine
DX: A41.9 Sepsis, unspecified organism (principal); I96 Gangrene, not elsewhere classified; I11.0 Hypertensive heart disease with heart failure; E10.621 Type 1 diabetes mellitus with foot ulcer; I50.9 Heart failure, unspecified; E44.1 Mild protein-calorie malnutrition; E87.1 Hypo-osmolality and hyponatremia; L03.115 Cellulitis of right lower limb; L89.899 Pressure ulcer of other site, unspecified stage; L02.611 Cutaneous abscess of right foot; E66.9 Obesity, unspecified; L84 Corns and callosities; I25.10 Atherosclerotic heart disease of native coronary artery without angina pectoris; J44.9 Chronic obstructive pulmonary disease, unspecified; E78.5 Hyperlipidemia, unspecified; L03.116 Cellulitis of left lower limb; K43.9 Ventral hernia without obstruction or gangrene; E10.52 Type 1 diabetes mellitus with diabetic peripheral angiopathy with gangrene; E10.69 Type 1 diabetes mellitus with other specified complication; M86.8X7 Other osteomyelitis, ankle and foot; Z68.38 Body mass index [BMI] 38.0-38.9, adult; Z95.2 Presence of prosthetic heart valve
CPT/HCPCS: 36415-UA; 71045-TC; 73620-TC-RT; 73718-TC-RT; 78315-TC; 80048-TC; 80053-TC; 80061-TC; 80202-TC; 80307; 81001-TC; 82948-90; 83036-90; 83605; 83880-TC; 84443-TC; 84484-TC; 85007-TC; 85025-TC; 85379-TC; 85610-TC; 85652-TC; 85730-TC; 86141-TC; 86592-TC; 93005; 93925-TC; 93970-TC-50; 93971-TC-LT; 94760; 96374; A9503; J0295; J0696; J1650; J1815; J2543; J3370; J7040; Z7610